=== PATIENT | female | born 1945 | race Caucasian/White ===

== ENCOUNTER → 2016-02-22 | Outpatient (CLI) | payer OTHER, MEDICARE ==
--- NOTE | 2016-02-22 10:07 | DX ---
Lumbar Spine, AP and Lateral Upright Views February 22, 2016 at 9:14 a.m. Clinical History: 70-year-old female with persistent low back pain and a prior history of fusion two years ago. ICD 10 Diagnostic Code: M54.16. Comparison Study: Lumbar spine radiographs, dated April 02, 2014. Findings: The patient has undergone posterior spinal fusion from L4-S1 with longitudinally oriented f usion rods secured by bilateral transpedicular screws. A transverse fusion bar is seen at L5. Radiopa que markers are seen at the interbody fused levels. There is no periprosthetic lucency. There is a mi ld sigmoid-shaped thoracolumbar scoliosis with a lower dextrothoracic component measuring 8 degrees a nd a levolumbar component measuring 10 degrees. There has been progressive degenerative disk space na rrowing at L2-L3 with persistent disk space narrowing at L3-L4 compared to March 2014. Old mild ve ntral concavities at T11-L1 are stable. There are ventral traction osteophytes from T11-L3. Faint mur al calcification of the abdominal aorta is noted. There is no symphysis pubis or SI joint diastasis. Impression: 1. Postoperative change following prior arthrodesis at L4-S1. 2. Progressive degenerative change predominately at L2-L3 and to a lesser degree at L3-L4 since 2014, with a mild biphasic thoracolumbar scoliosis. The patient is also scheduled for MR imaging of the lumbar spine, and this report should also be refe renced.
--- NOTE | 2016-02-22 11:40 | MR ---
Unenhanced MRI of the Lumbar Spine Clinical History: 70-year-old female with a prior L4-S1 fusion, complaining of lumbago and right hip and thigh pain. ICD 10 Diagnostic Code: M54.16. Technique: Sagittal T1, T2, and STIR "metal" protocol images were obtained from the T10-T11 disk spac e through the caudal portion of the sacrum, and supplemented by axial T1 and T2-weighted images. A no ncontrast study was requested only. Comparison Studies: Lumbar spine radiographs from earlier this morning at 9:14 a.m., and MR imaging o f the lumbar spine dated April 02, 2014. Findings: The patient has undergone posterior spinal fusion from L4-S1, and there is some magnetic grossman sceptibility artifact associated with the longitudinally-oriented rods, bilateral transpedicular scre ws, a transverse fusion bar at L5, and previously noted linear radiopaque fusion markers at the inter body levels. The posterior alignment at the operative levels is relatively anatomic and stable. There are old mild ventral concavities at the T12 and L1 levels. There is degenerative disk desiccation at all levels, and there has been progressive degenerative disk disease since the previous study in 201 5, particularly at the L2-L3 level and to a lesser degree at the L3-L4 level. Central canal stenoses are seen at multiple levels above the operative decompressive levels, and will be discussed further b ambar. Bone marrow signal is notable for some cortical endplate degenerative changes. There are some s cattered hemangiomas which suppress on the STIR sequences. The conus medullaris has a normal morpholo gy, terminating at the caudal L1 level. There is no hyperintense disk signal to suggest diskitis, and there is no prevertebral or epidural hematoma. The prevertebral soft tissues are grossly unremarkabl e. At the T10-T11 level, there is degenerative disk space narrowing and disk desiccation with Schmorl's node formation. There is a moderate central-right paracentral subligamentous disk herniation, resulti ng in severe central canal stenosis with an AP canal diameter of only 6 mm. There is a mild degree of right neural foraminal stenosis. At the T11-T12 level, there is degenerative disk desiccation with broad-based annular bulging and a c entral subligamentous disk protrusion, resulting in zeuw-pi-xqdyxshg central canal stenosis of 10 mm. There is mild facet hypertrophy and mild left neural foraminal narrowing. At the T12-L1 level, there is degenerative disk desiccation with broad-based annular bulging and a ce ntral subligamentous disk protrusion, resulting in mild central canal stenosis. The neural foramina a re relatively patent. At the L1-L2 level, there is degenerative disk desiccation with moderate bilateral facet hypertrophy with small facet joint effusions. There is eccentric right paracentral and right neural foraminal dis k herniation, resulting in moderate right paracentral and wlgi-ts-pxcvuasa right neural foraminal kahlil rowing. At the L2-L3 level, there has been progressive degenerative disk space narrowing with ventral and cir cumferential dorsal disk bulging. Moderate facet hypertrophy with ligament flavum thickening results in moderate central canal stenosis and severe right (sagittal series 3, image 8) and mild left neural foraminal stenosis. At the L3-L4 level, there is degenerative disk desiccation with broad-based circumference disk bulgin g, moderate bilateral facet hypertrophy, and ligamentum flavum thickening. There is a moderate degree of central canal stenosis and moderate bilateral neural foraminal narrowing with some bilateral late ral recess narrowing. At the L4-L5 level, the patient has had a decompressive laminectomy and spinal fusion, and there is n o central canal stenosis. The neural foramina are patent. At the L5-S1 level, there has been posterior spinal fusion and decompression with a normal AP canal d iameter. There is some mild bilateral neural foraminal stenosis. Impression: 1. Postsurgical change from L4-S1, stable from April 02, 2014. 2. Multilevel advanced degenerative disk disease, definitely progressive L2-L3 (where there is now se kenyatta right neural foraminal stenosis) and slightly progressive at L3-L4 compared to 2015 with accompa nying central canal and neural foraminal stenoses, as above-detailed. Degenerative canal narrowing ex tends to the T10-T11 level, as well.
== END ==
LOC: FIMAGING 09:03
PROVIDERS: ATTEND Neurological Surgery
DX: M54.16 Radiculopathy, lumbar region (principal); M54.5 Low back pain; M51.35 Other intervertebral disc degeneration, thoracolumbar region; M51.36 Other intervertebral disc degeneration, lumbar region; M41.9 Scoliosis, unspecified; Z98.1 Arthrodesis status

== ENCOUNTER → 2016-04-26 | Outpatient (CLI) | payer OTHER, MEDICARE | LOC: BHCLAF 10:00 | PROVIDERS: ATTEND Internal Medicine | DX: R01.1 Cardiac murmur, unspecified (principal) | CPT/HCPCS: 93306-PO ==

== ENCOUNTER → 2016-10-03 | Outpatient (CLI) | payer OTHER, MEDICARE | LOC: FIMAGING 12:07 | PROVIDERS: ATTEND Neurological Surgery | DX: G95.29 Other cord compression (principal); M48.04 Spinal stenosis, thoracic region; M51.24 Other intervertebral disc displacement, thoracic region; M51.25 Other intervertebral disc displacement, thoracolumbar region; M48.06 Spinal stenosis, lumbar region; M48.07 Spinal stenosis, lumbosacral region; M51.26 Other intervertebral disc displacement, lumbar region; M89.38 Hypertrophy of bone, other site; M99.73 Connective tissue and disc stenosis of intervertebral foramina of lumbar region ==

== ENCOUNTER → 2016-10-29 | Outpatient (CLI) | payer OTHER, MEDICARE | LOC: BHFA 11:30 | PROVIDERS: ATTEND Internal Medicine Cardiovascular Disease | DX: R09.89 Other specified symptoms and signs involving the circulatory and respiratory systems (principal) ==

== ENCOUNTER 2016-11-08 06:01 | Inpatient (IN) | payer OTHER, MEDICARE ==
[2016-11-08] MEDS ORDERED: ceFAZolin 2 GM/DEXTROSE 100 ML IV ONE (06:09)
[2016-11-08] MEDS ORDERED: LIDOCAINE 1% 2 ML INJ ID PRN (06:10)
[2016-11-08] MEDS ORDERED: LR 1,000 ML IV ONE (06:10)
[2016-11-08] MEDS ORDERED: THROMBIN (BOVINE) 5,000 UNIT VIAL TP ONE (06:57)
[2016-11-08] MEDS ORDERED: CHLORHEXIDINE GLUC HIBICLENS 118 ML BTL TP ONE (06:57)
[2016-11-08] MEDS ORDERED: BACITRACIN 50,000 UNITS/10 ML SYR IRR ONE (06:57)
[2016-11-08] MEDS ORDERED: BUPIVACAINE 0.25% 30 ML SDV ONE (06:57)
[2016-11-08] MEDS ORDERED: THROMBIN (BOVINE) 20,000 UNIT VIAL TP ONE ×2 (07:01→10:07)
--- NOTE | 2016-11-08 07:01 | PDHPUP ---
History & Physical Update H&P update statement: This history and physical update is based on an assessment of the patient which was completed after admission or registration (within 24 hours), but prior to the surgery/procedure. H&P update: H&P reviewed & patient examined, no change in patient's condition since H&P completed
[2016-11-08] MEDS ORDERED: MIDAZOLAM 2 MG/2 ML VIAL IVP ONE (07:05)
--- NOTE | 2016-11-08 07:06 | PDANEPAE ---
ANE History of Present Illness here for TLIF ANE Past Medical History - Cardiovascular History Hx Hypertension: Yes Hx Arrhythmias: No Hx Chest Pain: No Hx Coronary Artery / Peripheral Vascular Disease: No Hx CHF / Valvular Disease: No Hx Palpitations: No - Pulmonary History Hx COPD: No Hx Asthma/Reactive Airway Disease: Yes Hx Recent Upper Respiratory Infection: No Hx Oxygen in Use at Home: No Hx Sleep Apnea: No Sleep Apnea Screening Result - Last Documented: Negative Pulmonary History Comment: Asthma-inhalers. Pnuemonia-03/23, resolved. - Neurologic History Hx Cerebrovascular Accident: No Hx Seizures: No Hx Dementia: No Neurologic History Comment: Several lower back epidural inj. - Endocrine History Hx Diabetes: No Endocrine History Comment: Hypothyroid-med. - Renal History Hx Renal Disorders: No Renal History Comment: HX of hyponatremia, being worked up.Post cervical fusion Jan 2014 - Liver History Hx Hepatic Disorders: No - Neurological & Psychiatric Hx Hx Neurological and Psychiatric Disorders: Yes Neurological / Psychiatric History Comment: Depression-med - Cancer History Hx Cancer: No - Congenital Disorder History Hx Congenital Disorders: Yes Congenital History Comment: Spinal canal stenosis. - GI History Hx Gastrointestinal Disorders: Yes Gastrointestinal History Comment: OCCASIONAL REFLUX - Other Health History Other Health History: HX bilateral narrow angle glaucoma-corrected. Osteoarthritis in joints. Bruise easily & skin tears - Chronic Pain History Chronic Pain: Yes (spine) - Surgical History Prior Surgeries: 1974-tonsils. 1977-tubal ligation. 2005-D&C. 2009-bilateral thumb tendon. 2010-L knee scope. 2011-partial L knee plasty. 2013-bilateral. CERVICAL 2013 C456 FUSION, LUMBAR 2014 [id number] surg for glaucoma.NARROW ANGLE ANE Review of Systems Review of systems is: negative Review of Systems: - Exercise capacity Exercise capacity: <4 METS, >=4 METS METS (RN): 4 METS ANE Patient History - Allergies Allergies/Adverse Reactions: Sulfa (Sulfonamide Antibiotics) Allergy (Mild, Verified 04/02/14 13:47) Hives - Home Medications Home medications: home medication list seen and reviewed Home Medications: Albuterol [Proventil Inhaler HFA (*)] 2 puffs IH DAILY PRN 05/31/11 [Last Taken 10/25/16] Cyclobenzaprine [Flexeril 10 MG (*)] 10 mg PO DAILY PRN 05/31/11 [Last Taken 02/23 20:00] Levothyroxine [Synthroid 150 mcg (*)] 150 mcg PO MOTUWETHFR@05/31/11 [Last Taken 11/08/16 05:00] Methylcellulose [Citrucel] 4 cap PO DAILY 05/31/11 [Last Taken 11/01/16] Multivitamins [Multivitamin (*)] 1 tab PO DAILY 05/31/11 [Last Taken 11/01/16] Levothyroxine Sodium 75 mcg PO SA@03/24/13 [Last Taken 11/07/16] Calcium Carbonate [Oyster Shell Calcium 500 mg (*)] 500 mg PO BID 12/20/13 [ Last Taken 11/01/16] Omeprazole 20 mg PO BID PRN 12/20/13 [Last Taken 11/07/16 20:00] Simvastatin [Zocor 20 mg] 20 mg PO HS 12/20/13 [Last Taken 11/07/16 20:00] Zolpidem Tartrate [Ambien 5MG (*)] 2.5 mg PO HS PRN 12/20/13 [Last Taken 21:00] Glucosamine/Chondroitin [Glucosamine/Chondroitin (*)] 1 cap PO BID 01/11/14 [ Last Taken 11/01/16] Azelastine HCl [Astepro] 1 spray NS DAILY PRN 03/13/14 [Last Taken 11/08/16 05: 00] [place]-3 Fatty Acids [Fish Oil 1000 mg (*)] 1,000 mg PO BID 03/13/14 [Last Taken 11/01/16] Gabapentin [Neurontin 300 MG (*)] 600 mg PO BID 04/02/14 [Last Taken 11/07/16 20 :00] Acetaminophen [Tylenol 325mg (*)] 325 mg PO DAILY PRN 10/07/16 [Last Taken 11/07 18:00] Ascorbic Acid [Vitamin C 500 mg (*)] 1,000 mg PO BID 10/07/16 [Last Taken ] C/E/Zn/Cu/OM3/DHA/EPA/LUT/ZEAX [Preservision Areds 2 Softgel] 1 each PO DAILY [Last Taken 11/01/16] Calcium Carbonate [Tums 500MG (*)] 500 mg PO DAILY PRN 10/07/16 [Last Taken ] FLUoxetine [Prozac 20 MG (*)] 20 mg PO DAILY 10/07/16 [Last Taken 11/08/16 05:00 ] Fluticasone Hfa 220 Mcg [Flovent 220 MCG Hfa MDI (*)] 1 puffs IH BID PRN [Last Taken 10/11/16] Ibuprofen [Motrin (*)] 200 mg PO DAILY PRN 10/07/16 [Last Taken 11/01/16] Spironolactone [Aldactone 50 MG (RX)] 50 mg PO DAILY 10/07/16 [Last Taken 18:00] amLODIPine BESYLATE [Norvasc 5 mg (*)] 5 mg PO DAILY 10/07/16 [Last Taken 05:00] - NPO status NPO Status: no food or drink >8 hours NPO Since - Liquids (Date): 11/07/16 NPO Since - Liquids (Time): 20:00 NPO Since - Solids (Date): 11/07/16 NPO Since - Solids (Time): 20:00 - Smoking Hx Smoking Status: Former smoker - Family Anes Hx Family Hx Anesthesia Complications: NONE ANE Labs/Vital Signs - Vital Signs Blood Pressure: 152/72 Heart Rate: 64 Respiratory Rate: 16 O2 Sat (%): 94 Height: 157.48 cm Weight: 76.204 kg ANE Physical Exam - Airway Neck exam: FROM Mallampati Score: Class 2 Mouth exam: normal dental/mouth exam - Pulmonary Pulmonary: no respiratory distress - Cardiovascular Cardiovascular: regular rate and rhythym - ASA Status ASA Status: III ANE Anesthesia Plan Anesthesia Plan: general endotracheal anesthesia Lines/Monitors: arterial line
[2016-11-08] MEDS ORDERED: fentaNYL 100 MCG/2 ML INJ ONE ×5 (07:12→15:33)
[2016-11-08] MEDS ORDERED: PROPOFOL/EMULSION 500 MG/50 ML BOTTLE IV ONE ×3 (07:13→10:25)
[2016-11-08] MEDS ORDERED: KETAMINE 100 MG/10 ML SYR ONE (08:12)
[2016-11-08] MEDS ORDERED: TRANEXAMIC ACID 760 MG in NS 100 ML IV ONE (08:30)
[2016-11-08] MEDS ORDERED: LABETALOL HCL 50 MG/10 ML SYR IVP PRN (09:38)
[2016-11-08] MEDS ORDERED: PROMETHAZINE HCL 25 MG/ML INJ IVP PRN (09:38)
[2016-11-08] MEDS ORDERED: ALBUTEROL 3 ML DEYVIAL IH PRN (09:38)
[2016-11-08] MEDS ORDERED: HYDROmorphONE/DILAUDID 1 MG/ML INJ IVP PRN (09:38)
[2016-11-08] MEDS ORDERED: fentaNYL 100 MCG/2 ML INJ IVP PRN (09:38)
[2016-11-08] MEDS ORDERED: NALOXONE HCL 0.4 MG/ML INJ IVP PRN ×2 (09:38→11:56)
[2016-11-08] MEDS ORDERED: ONDANSETRON 4 MG/2 ML VIAL IVP PRN ×2 (09:38→11:46)
[2016-11-08] MEDS ORDERED: DEXAMETHASONE 4 MG/ML VIAL IVP PRN (09:38)
[2016-11-08] MEDS ORDERED: epHEDrine SULFATE 10 MG/ML SYR ONE ×4 (10:14→13:05)
[2016-11-08] MEDS ORDERED: PHENYLEPHRINE 10 MG/ML SDV ONE (11:19)
[2016-11-08 11:26] LABS: BASE EXCESS -8.6 mEq/L (-2.5-2.5); BICARBONATE 18 mEq/L (22-26); MEASURED OXYGEN SATURATION 99 % (92-95); PCO2 43 mmHg (34-38); PO2 253 mmHg (65-75); TCO2 19 mEq/L (23-27)
[2016-11-08 11:32] LABS: % IMMATURE GRANULYOCYTES 1.5 % (0.0-1.1); ABSOLUTE IMMATURE GRANULOCYTES 0.15 10^3/uL (0.00-0.10); ADD DIFF? NO; ADD MORPH? NO; ADD SCAN? NO; ATYPICAL LYMPHOCYTE FLAG 0 (0-99); FRAGMENT RBC FLAG 0 (0-99); HEMATOCRIT 30.9 % (38.0-47.0); HEMOGLOBIN 10.4 g/dL (12.6-16.3); LEFT SHIFT FLG 20 (0-99); LIPEMIA HEMOLYSIS FLAG 80 (0-99); MEAN CELL HEMOGLOBIN 32.3 pg (27.9-34.1); MEAN CELL HEMOGLOBIN CONCENTR. 33.7 g/dL (32.4-36.7); MEAN PLATELET VOLUME 10.6 fL (8.7-11.7); PLATELET CLUMPS FLAG 0 (0-99); PLATELET COUNT 236 10^3/uL (150-400); RED BLOOD CELL COUNT 3.22 10^6/uL (4.18-5.33); RED CELL DISTRIBUTION WIDTH 12.6 % (11.5-15.2)
[2016-11-08] MEDS ORDERED: VASOPRESSIN 20 UNIT/ML VIAL ONE (11:34)
[2016-11-08] MEDS ORDERED: LACTULOSE 20 GM/30 ML UDCUP PO PRN (11:46)
[2016-11-08] MEDS ORDERED: diphenhydrAMINE 25 MG CAP PO PRN (11:46)
[2016-11-08] MEDS ORDERED: ONDANSETRON DISINTEGRATING 4 MG TAB PO PRN (11:46)
[2016-11-08] MEDS ORDERED: ALBUTEROL 60 PUFFS/8 GM MDI IH PRN (11:51)
[2016-11-08] MEDS ORDERED: FLUTICASONE HFA 220 MCG MDI IH PRN (11:51)
[2016-11-08] MEDS ORDERED: CYCLOBENZAPRINE 10 MG TAB PO PRN (11:51)
[2016-11-08] MEDS ORDERED: Azelastine Hcl [Astepro] 1 SPRAY NS PRN (11:51)
[2016-11-08] MEDS ORDERED: NS 500 ML IV PRN (11:55)
[2016-11-08] MEDS ORDERED: DEXMEDETOMIDINE HCL 400 MCG in NS 100 ML IV SCH (12:00)
[2016-11-08] MEDS ORDERED: ALBUTEROL 200 PUFFS/18 GM MDI IH PRN (12:30)
[2016-11-08] MEDS ORDERED: MIDAZOLAM 2 MG/2 ML VIAL ONE (13:28)
[2016-11-08] MEDS ORDERED: NOREPINEPHRINE BITARTRATE 16 MG in D5W 250 ML IV SCH (13:30)
[2016-11-08] MEDS ORDERED: PROPOFOL 200 MG/20 ML VIAL ONE ×2 (13:46→14:30)
[2016-11-08] MEDS ORDERED: NA BICARBONATE 50 MEQ/50 ML VIAL ONE (14:01)
[2016-11-08] MEDS ORDERED: INSULIN REGULAR HUMAN 100 UNIT/ML ONE (14:41)
--- NOTE | 2016-11-08 15:14 | POSTOPPROG ---
Post Op Note Date of Operation: 11/08/16 Surgeon: Rocio Yin Car Hostler: Rocio Yin SUTURE GAUGER Anesthesia: GET(General Endotracheal) Procedure: T10-11 TLIF, L2-S1 Fusion Inf/Abcess present in the surg proc area at time of surgery?: No Depth: Deep Incisional (Fascial) EBL: 500-1000 Total fluids administered: see anesthesia Complications: See Dr Kaba's operative report Drains: Prem Casanova Date of Surgery: 11/08/16 Post Op Day: 0 Assessment/Plan: 71 yr old female s/p T10-11 TLIF, L1-S1 fusion Plan: -Admit to ICU -Keep MAP greater than 85, ok to use NIBP -Precedex ordered if needed to assist with pain management -PT/OT to eval when able -Ok to elevated HOB -Patient has brace already, will need to wear it when out of bed -DVT prophylaxis to start on POD#3 -ALCIDES in place Subjective: Patient waking up in ICU, following commands Objective: Waking up in ICU, following commands PERRLA EOMI 5/5 BUE, BLE Sensation intact to light touch BLE ALCIDES in place dressing CDI Appropriate Neuro Check Frequency Ordered: Yes
[2016-11-08] MEDS ORDERED: fentaNYL/NACL 100 ML IV SCH (15:53)
[2016-11-08] MEDS ORDERED: D50W 25 GM/50 ML SYR IVP PRN ×2 (15:53→16:24)
[2016-11-08] MEDS ORDERED: DOPamine/DEXTROSE/250 ML BAG IV ONE (16:20)
--- NOTE | 2016-11-08 16:22 | POSTANESTH ---
Post Anesthetic Evaluation Cardiovascular Status: Tx Hyper/Hypo-tension (levophed for hypotension and map goals) Respiratory Status: Normal, Stable Level of Consciousness/Mental Status: Mildly Sleepy, Arousable (awakes to voice , moves all extremities) Pain Control: Adequate, Prn Tx Ordered Nausea/Vomiting Control: Adequate, Prn Tx Ordered Complications Possibly Related to Anesthesia: None Noted
[2016-11-08] MEDS ORDERED: D5W 1,000 ML IV SCH (16:24)
[2016-11-08] MEDS ORDERED: INSULIN REGULAR HUMAN 100 UNIT in NS 100 ML IV SCH (16:24)
[2016-11-08 16:31] LABS: BASE EXCESS -11.3 mEq/L (-2.5-2.5); BICARBONATE 15 mEq/L (22-26); MEASURED OXYGEN SATURATION 99 % (92-95); PCO2 35 mmHg (34-38); PO2 286 mmHg (65-75); TCO2 16 mEq/L (23-27)
[2016-11-08] MEDS ORDERED: ALBUMIN 5% 500 ML BOTTLE IV ONE ×2 (16:44→17:12)
[2016-11-08] MEDS ORDERED: EPINEPHrine 1 MG/10 ML SYR IVP ONE (16:51)
[2016-11-08 17:21] LABS: BASE EXCESS -6.8 mEq/L (-2.5-2.5); BICARBONATE 19 mEq/L (22-26); MEASURED OXYGEN SATURATION 95 % (92-95); PCO2 40 mmHg (34-38); PO2 80 mmHg (65-75); TCO2 20 mEq/L (23-27)
[2016-11-08 17:26] LABS: HEMATOCRIT 23.9 % (38.0-47.0); HEMOGLOBIN 8.2 g/dL (12.6-16.3)
[2016-11-08 18:25] LABS: % IMMATURE GRANULYOCYTES 0.9 % (0.0-1.1); ABSOLUTE IMMATURE GRANULOCYTES 0.23 10^3/uL (0.00-0.10); ADD DIFF? NO; ADD MORPH? NO; ADD SCAN? NO; ATYPICAL LYMPHOCYTE FLAG 0 (0-99); FRAGMENT RBC FLAG 0 (0-99); HEMATOCRIT 31.1 % (38.0-47.0); HEMOGLOBIN 10.8 g/dL (12.6-16.3); LEFT SHIFT FLG 70 (0-99); LIPEMIA HEMOLYSIS FLAG 90 (0-99); MEAN CELL HEMOGLOBIN CONCENTR. 34.7 g/dL (32.4-36.7); MEAN CELL VOLUME 92.3 fL (81.5-99.8); MEAN PLATELET VOLUME 10.8 fL (8.7-11.7); PLATELET CLUMPS FLAG 0 (0-99); PLATELET COUNT 136 10^3/uL (150-400); RED BLOOD CELL COUNT 3.37 10^6/uL (4.18-5.33); RED CELL DISTRIBUTION WIDTH 13.8 % (11.5-15.2)
[2016-11-08] MEDS ORDERED: CALCIUM CHLORIDE 1 GM/10 ML INJ IVP ONE (18:30)
[2016-11-08] MEDS ORDERED: SODIUM BICARBONATE 50 MEQ/50 ML SYR IVP ONE ×3 (18:30)
[2016-11-08] MEDS ORDERED: ALBUMIN 5% 500 ML IV ONE ×2 (18:30)
[2016-11-08 18:38] LABS: ANION GAP 22 mEq/L (8-16); CALCIUM 9.3 mg/dL (8.5-10.4); CARBON DIOXIDE 16 mEq/l (22-31); CHLORIDE 101 mEq/L (97-110); CREATININE 0.8 mg/dL (0.6-1.0); GLOMERULAR FILTRATION RATE > 60; GLUCOSE 218 mg/dL (70-100); POTASSIUM 3.8 mEq/L (3.5-5.2); SODIUM 139 mEq/L (134-144)
[2016-11-08] MEDS: ACETAMINOPHEN 500 MG TAB PO SCH (18:39)
[2016-11-08] MEDS: ceFAZolin 2 GM/DEXTROSE 100 ML IV SCH (18:41)
[2016-11-08] MEDS: INSULIN REGULAR HUMAN 100 UNIT/ML SC SCH ×2 (18:46→23:54)
[2016-11-08 18:50] LABS: TROPONIN I 0.049 ng/mL (0.000-0.034)
--- NOTE | 2016-11-08 19:03 | GOP ---
[f rep st] OPERATIVE REPORT DATE OF OPERATION: 11/08/2016 SURGEON: Elena Kaba MD NEUROSURGEON: Elena Kaba MD. DIRECTOR MARKET INTELLIGENCE: Rocio Yin NP PREOPERATIVE DIAGNOSIS: Severe thoracolumbar spondylosis with severe stenosis at T10-11; moderate st enosis of T11-12, T12-L1; severe stenosis at L3-4, L2-3; moderate stenosis L1-2; severe right foramin al stenosis L2-3; right lumbosacral radiculopathy; cord compression at the T10-11 level. POSTOPERATIVE DIAGNOSIS: Severe thoracolumbar spondylosis with severe stenosis at T10-11; moderate s tenosis of T11-12, T12-L1; severe stenosis at L3-4, L2-3; moderate stenosis L1-2; severe right forami nal stenosis L2-3; right lumbosacral radiculopathy; cord compression at the T10-11 level. PROCEDURE PERFORMED: 1. We did a T10-11 laminectomy and bilateral transpedicular decompression with complete removal of t he T10-11 disk and a posterolateral and intervertebral arthrodesis at T10-11 with posterior nonsegmen becki instrumentation across a single interspace at that level, placement of biomechanical intervertebr al device T10-11, spinal stereotaxy, microscope. 2. Same incision was a posterolateral arthrodesis only at L1-2, L2-3, L3-4; posterior segmental inst rumentation L1, L2, L3, L4, L5, S1; same-incision bone graft harvest. FINDINGS: ESTIMATED BLOOD LOSS: 600 cc. DESCRIPTION OF PROCEDURE: Patient was taken to the operating room, placed in supine position. Gener al anesthesia was begun. An arterial line was placed. Our goal was to keep her mean arterial pressu re up throughout the surgery and our goal was to keep it at 85 or 90, and Dr. Mart Bautista placed the arterial line in attempt to satisfy these needs. He and I both recognized the seriousness of the pr oblem in her thoracic spine. She was flipped prone onto the Prem table. Care was taken to pad al l points of contact. Her back was sterilely prepped and draped in the usual fashion. We did have so me difficulty positioning her arms prior to surgery in an effort to maintain median and ulnar motor e voked responses, but we were able to get these done prior to starting. We then shot localizing x-ray s and used the plasma blade to open the spine all the way from the spinous process of T9 down to the spinous process of S1. We performed subperiosteal dissection down the T9 lamina. The T10, T11, T12, L1, L2, L3 lamina were all exposed. The prior hardware at L4-5, L5-S1 was exposed. We removed the p rior hardware. We explored the underlying spinal fusion L4-5, L5-S1 and indeed she was fused. There was solid bony union most evident on the right with a solid single piece of bone spanning from L4 to S1. All of her hardware was extremely well-seated. There was no loosening of the hardware and this , too, suggested strong bony union. We re-prepped the area where the screws were removed at L4, L5 and S1. We then denuded the facet peg nts that were going to be fused at T10-11 and then also at L1-2, L2-3, L3-4. We decorticated the tra nsverse processes at L1-2, L2-3, L3-4. We preserved the T11-12 and T12-L1 facet joints completely. These were not disturbed. We tested Stealth reference frame and using frameless Stealth stereotaxy, we placed pedicle screws bilaterally at L1, L2, L3, L4, L5, and S1. They all stimulated at acceptabl e levels. An O-arm spin was made. All the screws were in excellent position. We then performed ano ther O-arm spin for the thoracic surgery and place pedicle screws at T10 and T11. These were 5.5 mm screws, and we performed another O-arm spin confirming their position. The original O-arm spin of th e lower part of the spine did demonstrate solid bony union from L4 to the sacrum. All the screws wer e in excellent position. We took a long bridget, cut it and bent it, and placed it down from L1 to S1. Final tightened the cap sc rews at L4, L5, and S1, and then distracted at L3-4, L2-3, and L1-2. We got about an inch-worth of d istraction across these 3 levels and shot an x-ray, and I was very happy with both the alignment of h er spine as well as the significant distraction of the facet joints posteriorly. She also continued to have a nice lumbar lordosis and we were happy with all of this. We then prepped the posterolateral bone from L1 to the L4-5, S1 area. We even decorticated L4-5 and S1 to allow the new construct to grow into this old construct. A great posterolateral fusion was per formed. We then turned our attention to T10-11. We had done no decompressions at L1-2, L2-3, L3-4, and thoug ht we would do this at the end of the surgery if indeed everything went well in the thoracic spine. We went to the thoracic spine and here we did not put any rods down, but we did cut the rods to size at T10-11. We then removed all the soft tissue of the bone from the T10 spinous process and the raudel ral T11 spinous process. We then harvested the T10 spinous process for autologous grafting purposes and then simply drilled bilateral T10 laminae and thinned out the lamina of T10 using the high-speed drill. We harvested this bone for autologous grafting purposes. We were able to see epidural fat an d ligamentum flavum and we began to remove using loop magnification just the very inferior part of th e T10 lamina. The underlying dura was identified and we began to remove. We made a small window in the bone, no more than about a centimeter across and a centimeter [id number], and at this poin t we lost function on the right motor evoked potentials. SSEPs were stable. I was concerned by this and my partner, Dr. Paul, came into the room and we introduced the operating microscope to begin e xtending the decompression. We removed the entire T10 lamina itself, increased our blood pressure. The MAP was originally at 80 and we had some return of just a slight twitch in the right foot when it was increased to 100. We performed complete bilateral facetectomies at T10-11, identified the exiti ng T10 nerve root, which we did not need to sacrifice. We then performed a rostral T11 pediculectomy to allow access to the disk space at T10-11. The neuro monitor then informed me that the left motor evoked potentials were now decreasing and the somatosensory-evoked potentials were now shifting and increasing in latency. We continued to work. We had an excellent wide decompression. We had not ma nipulated the dura nor had we truly entered the disk space, but we had an excellent corridor into the T10-11 disk from both sides, the left and the right. We then incised the T10-11 disk and removed so me soft pieces of disk within the disk itself, both from the left and the right. We took a high-spee d drill and performed a rostral corpectomy of T11 and a caudal corpectomy of T10. It was not truly a corpectomy. We were just simply removing the bony endplates and drilling using a bilateral approach through the disk. We were simply creating a large cavity within the disk space whereby we could fra cture the epidural component of the disk down into the cavity. We then took a dental and went rostra l to the disk space and caudal to the disk space, both from the left and right to identify the intras chapin mass that was present. We did not move the cord nor did we pull on the dura. We simply deline ated the normal ventral surface behind the T10 vertebral body and behind the T11 vertebral body. Onc e we had delineated this, we worked our way over down into the disk space itself and as we did so, we had removed all of the bony connections previously with the drill in the disk space itself and would begin to push the PLL down into the cavity that was created. As we worked our way toward the disk, we did fracture this disk fragment and the culprit fragment down in the disk space and removed this c ompletely. We then checked motors and we had return of the left leg motors to not normal, but they w ere now very clearly monitorable and they improved and now we had return of the right foot. We were not getting signals in the right quad and tibialis anterior. There was a struggle to keep the MAPs e levated. They had a tendency to fall down into [address] Bautista was able to increase the MAPs once again into the high 90s. This combined with removal of the disk appeared to restore the signal stren [facility]. We were now at this point in the case where things did appear to be improving. We decorticated the bone on either side at T10-11 to create arthrodesis and chose a 7 mm PEEK interve rtebral device x 25 mm length. A [place] PEEK cage was chosen. It was packed with BMP. We placed BMP in the ventral disk space. We inserted the PEEK cage, shot an x-ray, removed the cage, and then made a little more space slightly more ventral and then moved the cage into a slightly more ventral l ocation. It was inserted and a final x-ray was taken and we were happy with this. We had preserved the exiting nerve roots. Our access to the disks had been afforded by removal of the very rostral po rtion of the T11 pedicle. The pedicle screws we had purposely placed in the caudal pedicle and this approach seemed to have worked. Given the difficulty with the motor evoked potentials, we did not el ect to go ahead and continue with the lumbar portion of the case. She had achieved significant distr action and opening of the neural foramen indirectly and we did finish our posterolateral arthrodesis at L1-2, L2-3, and L3-4, but we did not do our decompression. We placed BMP posterolaterally bilate rally from L1 to L4 along with bony autograft and we did likewise between T10-11. We placed rods marisel n over the T10-11, screws, placed cap screws. Tightened them according to company specification. We checked the other cap screws. Placed a subfascial drain and closed the incision in multiple layers using Vicryl sutures. Steri-Strips were applied to skin. The patient was reversed from anesthesia, extubated, and transferred to ICU in stable condition. There were no additional complications. INSTRUMENTATION USED: Extreme [employer] Solara 5.5 system. We used a 7 x 25 mm crescent cage at T10-11. We used 5.5 mm screws, but a 6.5 mm system, at T10-11 with titanium bridget. COMPLICATIONS: Include diminished motor evoked potentials, particularly in the right leg during and after surgery. 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 She also changes at T11-12, T12-L1. She was having terrible righ t leg pain and it was our feeling this could be related to the stenosis and adjacent segment disease at L3-4, but really any of the levels of the lumbar spine could be contributing, but I was impressed particularly at the right L2-3 neural foramen and we suggested fusion at these adjacent segments. At one time we had entertained fusion throughout the entire lumbar spine but the case was reviewed with my partners and we elected not to do this. Her lumbar MRI demonstrated what appeared to be cord com pression at T10-11 right outside the field of view, and so we ordered a thoracic MRI and indeed the t horacic MRI did demonstrate cord compression of the lower thoracic cord due to a large ventral disk h erniation that was present both left and right. There did appear to be a safe corridor on the left t o access the disk space and because of this, I felt that she needed to have a thoracic operation as well. I thought both could be done simultaneously. I discussed with her the risks, including the ri sk of paraplegia, although I felt the risk was quite low as we had had good experience with this appr [facility] in the past. She understood the seriousness of the problem in the thoracic spine, but again I f elt there was a very low probability that she would experience paraplegia, but it was discussed as a possible risk. Nonsurgical intervention for this problem was not an option. It was also possible th at this problem was creating much of the difficulty that she was having, and without question this wa s the most serious problem that needed to be treated. In addition, she did have really terrible sheryl cent segment stenosis at L3-4, but there was also significant findings at L1-2 and L2-3, and I though t these should be treated. Some surgeons would have gone ahead and tied T10 all the way into the pre vious sacral fusion, and I felt the problems at T10-11 were somewhat distinct from the issues in the lower lumbar spine and I wanted to treat these really as separate issues. This would maximize the ch ance of bony union at T10-11, simplify the surgery and simplify the biomechanics of her spine, but I did discuss the downside of my approach with her and that downside being that she would almost certai nly require additional surgery at T11-12 and T12-L1 possibly in the near future. It was still in my judgment the best approach for her to simply treat these as separate issues. She understood this and she did want to proceed. The risk of screw and hardware malposition, malfunction, pseudoarthrosis, adjacent segment disease, additional spine surgery in the future was discussed. She knew there was r isk of nerve injury, and continued symptoms. /[id number]/MODL
[2016-11-08] MEDS ORDERED: IOPAMIDOL (ISOVUE-300) 100 ML BTL ONE (19:33)
[2016-11-08] MEDS: HYDROmorphONE/DILAUDID 6 MG/30 ML PCA IV PRN (20:00)
[2016-11-08 23:08] LABS: BASE EXCESS -1.1 mEq/L (-2.5-2.5); BICARBONATE 24 mEq/L (22-26); PCO2 45 mmHg (34-38); PO2 43 mmHg (65-75); TCO2 25 mEq/L (23-27)
[2016-11-08 23:10] LABS: MEASURED OXYGEN SATURATION 79 % (92-95)
[2016-11-08 23:45] LABS: HEMATOCRIT 29.8 % (38.0-47.0); HEMOGLOBIN 10.7 g/dL (12.6-16.3)
[2016-11-08] MEDS: GABAPENTIN 300 MG CAP PO SCH (23:54)
[2016-11-08] MEDS: FAMOTIDINE 20 MG TAB PO SCH (23:54)
[2016-11-08] MEDS: ATORVASTATIN CALCIUM 10 MG TAB PO SCH (23:54)
[2016-11-09] MEDS: morphINE SR 15 MG TAB PO SCH ×3 (00:17→21:10)
[2016-11-09] MEDS: SENNOSIDES/DOCUSATE SODIUM TAB PO SCH ×3 (00:17→21:11)
[2016-11-09] MEDS: ACETAMINOPHEN 500 MG TAB PO SCH ×4 (00:17→21:11)
[2016-11-09] MEDS: NS 1,000 ML IV SCH ×2 (01:15→10:07)
[2016-11-09] MEDS: ceFAZolin 2 GM/DEXTROSE 100 ML IV SCH (01:23)
[2016-11-09] MEDS: GABAPENTIN 300 MG CAP PO SCH ×2 (04:03→21:10)
[2016-11-09 04:24] LABS: % IMMATURE GRANULYOCYTES 0.7 % (0.0-1.1); ABSOLUTE IMMATURE GRANULOCYTES 0.11 10^3/uL (0.00-0.10); ADD DIFF? NO; ADD MORPH? NO; ADD SCAN? NO; ATYPICAL LYMPHOCYTE FLAG 0 (0-99); FRAGMENT RBC FLAG 0 (0-99); HEMATOCRIT 27.6 % (38.0-47.0); HEMOGLOBIN 9.7 g/dL (12.6-16.3); LEFT SHIFT FLG 30 (0-99); LIPEMIA HEMOLYSIS FLAG 90 (0-99); MEAN CELL HEMOGLOBIN 31.8 pg (27.9-34.1); MEAN CELL HEMOGLOBIN CONCENTR. 35.1 g/dL (32.4-36.7); MEAN CELL VOLUME 90.5 fL (81.5-99.8); MEAN PLATELET VOLUME 10.8 fL (8.7-11.7); PLATELET CLUMPS FLAG 10 (0-99); PLATELET COUNT 101 10^3/uL (150-400); RED BLOOD CELL COUNT 3.05 10^6/uL (4.18-5.33); RED CELL DISTRIBUTION WIDTH 14.4 % (11.5-15.2)
[2016-11-09 04:46] LABS: ANION GAP 11 mEq/L (8-16); CALCIUM 8.2 mg/dL (8.5-10.4); CARBON DIOXIDE 25 mEq/l (22-31); CHLORIDE 102 mEq/L (97-110); CREATININE 0.7 mg/dL (0.6-1.0); GLOMERULAR FILTRATION RATE > 60; GLUCOSE 124 mg/dL (70-100); POTASSIUM 4.3 mEq/L (3.5-5.2); SODIUM 138 mEq/L (134-144)
[2016-11-09] MEDS: INSULIN REGULAR HUMAN 100 UNIT/ML SC SCH ×4 (06:20→21:13)
--- NOTE | 2016-11-09 08:30 | PDINTPN ---
Hourly Caregiver Progress Note Assessment/Plan: Assessment/Plan: * Status post extensive back surgery with hardware removal * Shock-resolved * Anemia-resolved * Pulmonary embolus-small right lung. Patient went on a long car ride prior to admission. This is likely the etiology. -will discuss anticoagulation with Neurosurgery. Consider IVC filter * Pain-well controlled * Asthma-stable * Abdominal pain-resolved. CT scan of the abdomen pelvis suggest possible localized pancreatitis. Will check amylase and lipase. * Respiratory-stable on minimal supplemental oxygen. Case discussed with nursing and neurosurgery. 11/09/16 08:31 Subjective: Sitting up in chair. Comfortable. Pain well controlled. She denies any breathlessness. Objective: Vital Signs Temp Pulse Resp BP Pulse Ox 37.1 C 88 14 103/46 L 97 11/09/16 04:00 11/09/16 08:00 11/09/16 08:00 11/09/16 08:00 11/09/16 08:00 Laboratory Results 11/09/16 04:15 11/09/16 04:15 11/08/16 11/09/16 11/10/16 05:59 05:59 05:59 Intake Total 4565 Output Total 3030 Balance 1535 Physical Exam - Physical Exam General Appearance: WD/WN, alert, no apparent distress EENT: PERRL/EOMI Neck: non-tender, full range of motion, supple, normal inspection Respiratory: chest non-tender, lungs clear, normal breath sounds Cardiac/Chest: normal peripheral pulses, regular rate, rhythm Peripheral Pulses: 2+: carotid (R), carotid (L), femoral (R), femoral (L), dorsalis-pedis (R), dorsalis-pedis (L) Abdomen: normal bowel sounds, non-tender, soft Pelvic Exam: deferred Rectal: deferred Skin: normal color, warm/dry Neuro/Psych: no motor/sensory deficits, alert, normal mood/affect, oriented x 3 ICD10 Worksheet Patient Problems: Problems Problem Status Onset Arthrodesis status Acute Asthma exacerbation Acute Cervical radiculitis Acute Low back pain Acute Lumbosacral stenosis Acute Neck pain Acute
[2016-11-09] MEDS: LEVOTHYROXINE 150 MCG TAB PO SCH (08:37)
[2016-11-09] MEDS ORDERED: PANTOPRAZOLE SODIUM 40 MG TAB PO PRN (09:00)
[2016-11-09] MEDS ORDERED: SPIRONOLACTONE 25 MG TAB PO SCH (09:00)
[2016-11-09] MEDS ORDERED: amLODIPine BESYLATE 5 MG TAB PO SCH (09:00)
--- NOTE | 2016-11-09 09:10 | NEUSURGPN ---
Date of Surgery: 11/08/16 Post Op Day: 1 Assessment/Plan: 71 yr old female s/p T10-11 TLIF, L1-S1 fusion POD#1 Plan: -Ok to discontinue MAP requirement -Patient doing well with pain management, will try to encourage PO >IV medications -Patient has history of terrible constipation with narcotics, bowel protocol ordered -Right hand/forearm tingle, possibly due to arterial line infiltration vs surgical positioning, will continue to monitor -PT/OT to begin to mobilize -Post op xrays pending -Patient has brace already, will need to wear it when out of bed -Patient has small PE, ok to start low dose lovenox today per medicine, may start full anticoagulation on Tuesday -Keep in ICU today to follow exam Patient was seen by Dr Kaba as well Subjective: Patient sitting in chair feeling good Objective: AxO x3 PERRLA EOMI 5/5 BUE, BLE Sensation intact to light touch BLE Right hand/forearm tingling ALCIDES in place dressing CDI Neuro Check Frequency: per routine Urinary Catheter in Place: No Catheter Insertion Date: 11/08/16 - Physician Discussed Patient with : Sesar Patient Seen by : Sesar Neurosurgery Physical Exam - Vitals, I&O, Labs I and O 11/08/16 11/09/16 11/10/16 05:59 05:59 05:59 Intake Total 4565 Output Total 3030 Balance 1535 Weight 76.204 kg Intake: Oral (ml) 120 IV Intake (ml) 1531 IV Infused (ml) 1764 Albumin 5% 500 ml @ As 1000 Directed IV ONCE ONE Rx#: [id number] HYDROmorphone HCL See 21 Protocol IV PRN PRN Rx#: [id number] Insulin Regular Human 100 25 unit In Ns 100 ml @ As Directed IV AD MAURI Rx#: [id number] Ns 1,000 ml @ 100 mls/hr 718 IV CONT MAURI Rx#: [id number] Packed Red Blood Cells ( 1150 ml) Output: Urine (ml) 2700 Catheter 2700 ALCIDES Drain Output (ml) 330 #1 Posterior Back Prem 330 Casanova Vital Signs Temp Pulse Resp BP Pulse Ox 37.1 C 88 14 103/46 L 97 11/09/16 04:00 11/09/16 08:00 11/09/16 08:00 11/09/16 08:00 11/09/16 08:00 Laboratory Results 11/09/16 04:15 11/09/16 04:15 ICD10 Worksheet Patient Problems: Problems Problem Status Onset Arthrodesis status Acute Asthma exacerbation Acute Cervical radiculitis Acute Low back pain Acute Lumbosacral stenosis Acute Neck pain Acute
--- NOTE | 2016-11-09 10:02 | ASMTCMCOM ---
CM Note CM Note Notes: 71 year old female admitted for lumbrosacral stenosis. She has a hx of L4/5 & L5/S1 TLIF in 03/24, HTN and HLD. This is POD#1 after T10-11 TLIF and L1/S1 Fusion. CM to follow for discharge needs. Date Signed: 11/09/2016 10:01 AM Electronically Signed By:Isi Navarrete LCSW
[2016-11-09] MEDS: METHOCARBAMOL 750 MG TAB PO PRN ×2 (10:40→18:23)
[2016-11-09] MEDS: FAMOTIDINE 20 MG TAB PO SCH ×2 (10:40→21:10)
[2016-11-09] MEDS: FLUoxetine 20 MG CAP PO SCH (10:40)
--- NOTE | 2016-11-09 10:52 | GCON ---
[f rep st] CONSULTATION CLASSIFICATION OFFICER CONSULTATION Patient examined postoperatively after receiving extensive back fusion. The patient is a 71-year-old white female with extensive past medical history including asthma, hypothyroidism, hyperlipidemia, ch ronic back pain, gastroesophageal reflux disease, and depression. Again, she underwent extensive back surgery L4 through S1 with TLIF levels T10 through T11, and a posterior spinal fusion T10 through T1 1, L1 through S1. This was complicated intraoperatively by some evidence of hypotension and loss of n eurologic signal. She was brought to the intensive care unit. Currently, she is extubated from mechan ical ventilation and on supplemental oxygen. Her neuro exam has improved since returning from the ope rating room. Blood pressure is adequate. Patient is still somewhat drowsy from sedation. All history is gleaned from the medical record. PAST MEDICAL HISTORY: Again, significant for depression, chronic back pain, hypothyroidism, asthma, hyperlipidemia, gastroesophageal reflux disease. PAST SURGICAL HISTORY: She has had knee surgery and extensive back surgeries in the past. ALLERGIES: Sulfa. SOCIAL HISTORY: Previous smoker, but none for many years. No significant alcohol use. 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 She is . Her daughter is a nurse here at the hospital. PHYSICAL EXAMINATION: VITAL SIGNS: Blood pressure is 134/74, pulse is 110, respirations 16, she is a febrile, oxygen saturation is 94% on supplemental oxygen. GENERAL: She is a mildly overweight, elderl y white female, who is resting comfortably. HEENT: Eyes are PERRLA, EOMI. Throat shows no erythema or tonsillar hypertrophy. NECK: Supple. There is no cervical adenopathy. HEART: Regular rate and rhythm without murmurs, rubs, or gallops. LUNGS: Showed diminished breath sounds, but no wheeze. ABDOMEN: S oft, nontender. Bowel sounds are present. EXTREMITIES: Show no clubbing, cyanosis, or edema. LABORATORY DATA: White count 10, hemoglobin 10, hematocrit 30, platelet count 236. Arterial blood ga s pH 7.24, pCO2 43, pO2 of 253. Bicarb 19. Oxygen saturation 99%. IMPRESSION: 1. Status post extensive back surgery with hardware removal, transforaminal lumbar interbody fusion levels T10 through T11, posterior spinal fusion, T10 through T11, L1 through S1. 2. Hypotension. 3. History of asthma. 4. Pain adequately controlled. 5. Asthma. 6. Respiratory stable off mechanical ventilation. 7. Hypothyroidism. 8. Gastroesophageal reflux disease. RECOMMENDATIONS: 1. Agree with pressors to keep her mean arterial pressure at 85. 2. Aggressive blood sugar control. 3. DVT and PE prophylaxis holding anticoagulation for now. 4. Adequate pain control-in this regard will add a fentanyl drip. 5. Close cardiovascular monitoring. 6. Follow neurologic status closely. /[id number]/MODL
[2016-11-09] MEDS: POLYETHYLENE GLYCOL 3350 17 GM PKT PO PRN (10:57)
[2016-11-09] MEDS: HYDROmorphONE/DILAUDID 6 MG/30 ML PCA IV PRN (11:29)
[2016-11-09 12:00] LABS: AMYLASE 95 IU/L (30-110)
[2016-11-09] MEDS: oxyCODONE IR 5 MG TAB PO PRN (15:29)
[2016-11-09] MEDS: ENOXAPARIN 40 MG/0.4 ML SYR SC SCH (18:24)
[2016-11-09] MEDS: ATORVASTATIN CALCIUM 10 MG TAB PO SCH (21:10)
[2016-11-09] MEDS: ZOLPIDEM TARTRATE 5 MG TAB PO SCH (21:11)
[2016-11-09] MEDS: CYCLOBENZAPRINE 10 MG TAB PO SCH (21:12)
[2016-11-10] MEDS: ACETAMINOPHEN 500 MG TAB PO SCH ×3 (05:29→21:48)
[2016-11-10] MEDS: LEVOTHYROXINE 150 MCG TAB PO SCH (05:30)
[2016-11-10] MEDS: METHOCARBAMOL 750 MG TAB PO PRN ×2 (05:30→11:22)
--- NOTE | 2016-11-10 07:28 | NEUSURGPN ---
Date of Surgery: 11/08/16 Post Op Day: 2 Assessment/Plan: Assessment: 71 yr old female s/p T10-11 TLIF, L1-S1 fusion POD#2 Plan: -Ok to discontinue MAP requirement as of yesterday -Patient doing well with pain management, will try to encourage PO ->IV medications -Patient has history of terrible constipation with narcotics, bowel protocol ordered-pt had CT of abd after surgery that was ok-will continue to monitor -Right hand/forearm tingle, possibly due to arterial line infiltration vs surgical positioning. RUE US ordered -PT/OT to begin to mobilize -Post op xrays reviewed -ALCIDES output reviewed and will confirm the output with the RN -Patient has brace already, will need to wear it when out of bed -Patient has small PE, ok to start low dose lovenox today per medicine, may start full anticoagulation on Tuesday -Keep in ICU today to follow exam-may be able to transfer out of ICU today pending IM approval -Patient was seen by Dr Kaba as well Subjective: Awake and alert. NAD. Eating/drinking and voiding. No f/c/n/v/d. Passing gas /no BM as of yet Objective: AxO x3 PERRLA EOMI 5/5 BUE/BLE = Sensation intact to light touch BLE Right hand/forearm tingling ALCIDES in place dressing CDI Neuro Check Frequency: per routine Urinary Catheter in Place: No Catheter Insertion Date: 11/08/16 - Physician Discussed Patient with : Sesar Patient Seen by : Sesar Neurosurgery Physical Exam - Vitals, I&O, Labs I and O 11/09/16 11/10/16 11/11/16 05:59 05:59 05:59 Intake Total 4565 2400 Output Total 3030 1390 Balance 1535 1010 Weight 76.204 kg Intake: Oral (ml) 120 1300 IV Intake (ml) 1531 IV Infused (ml) 1764 1100 Albumin 5% 500 ml @ As 1000 Directed IV ONCE ONE Rx#: [id number] HYDROmorphone HCL See 21 Protocol IV PRN PRN Rx#: [id number] Insulin Regular Human 100 25 unit In Ns 100 ml @ As Directed IV AD MAURI Rx#: [id number] Ns 1,000 ml @ 100 mls/hr 718 1100 IV CONT MAURI Rx#: [id number] Packed Red Blood Cells ( 1150 ml) Output: Urine (ml) 2700 525 Catheter 2700 525 ALCIDES Drain Output (ml) 330 865 #1 Posterior Back Prem 330 865 Casanova Other: Output Comment Catheter straight cath Vital Signs Temp Pulse Resp BP Pulse Ox 37.1 C 78 11 L 98/54 L 96 11/09/16 04:00 11/10/16 06:00 11/10/16 06:00 11/10/16 06:00 11/10/16 06:00 Laboratory Results 11/09/16 04:15 11/09/16 04:15 ICD10 Worksheet Patient Problems: Problems Problem Status Onset Arthrodesis status Acute Asthma exacerbation Acute Cervical radiculitis Acute Low back pain Acute Lumbosacral stenosis Acute Neck pain Acute
[2016-11-10] MEDS: INSULIN REGULAR HUMAN 100 UNIT/ML SC SCH (07:42)
[2016-11-10] MEDS: FLUoxetine 20 MG CAP PO SCH (08:09)
[2016-11-10] MEDS: morphINE SR 15 MG TAB PO SCH ×2 (08:09→21:49)
[2016-11-10] MEDS: FAMOTIDINE 20 MG TAB PO SCH ×2 (08:09→21:49)
[2016-11-10] MEDS: GABAPENTIN 300 MG CAP PO SCH ×2 (08:09→21:49)
[2016-11-10] MEDS: CYCLOBENZAPRINE 10 MG TAB PO SCH ×3 (08:09→21:50)
[2016-11-10] MEDS: POLYETHYLENE GLYCOL 3350 17 GM PKT PO PRN (08:10)
[2016-11-10] MEDS: SENNOSIDES/DOCUSATE SODIUM TAB PO SCH ×2 (08:10→21:49)
[2016-11-10] MEDS: ENOXAPARIN 40 MG/0.4 ML SYR SC SCH (08:10)
--- NOTE | 2016-11-10 09:06 | PDINTPN ---
Photographic Artist Progress Note Assessment/Plan: Assessment/Plan: * Status post extensive back surgery with hardware removal * Shock-resolved * Anemia-resolved * Pulmonary embolus-small right lung. Patient went on a long car ride prior to admission. This is likely the etiology. -will discuss anticoagulation with Neurosurgery. Consider IVC filter * Right upper extremity swelling-query DVT -upper extremity ultrasound currently pending * Pain-well controlled * Asthma-stable * Abdominal pain-resolved. * Respiratory-stable on minimal supplemental oxygen. Case discussed with nursing and neurosurgery. Subjective: Resting comfortably. Pain is tolerable. Denies any breathlessness. Objective: Vital Signs Temp Pulse Resp BP Pulse Ox 36.9 C 78 13 116/47 L 96 11/10/16 08:00 11/10/16 08:00 11/10/16 08:00 11/10/16 08:00 11/10/16 08:00 Laboratory Results 11/09/16 04:15 11/09/16 04:15 11/09/16 11/10/16 11/11/16 05:59 05:59 05:59 Intake Total 4565 2400 Output Total 3030 1390 Balance 1535 1010 Physical Exam - Physical Exam General Appearance: WD/WN, alert, no apparent distress EENT: PERRL/EOMI, normal ENT inspection, pharynx normal, TMs normal Neck: non-tender, full range of motion, supple, normal inspection Respiratory: chest non-tender, lungs clear, normal breath sounds Cardiac/Chest: normal peripheral pulses, regular rate, rhythm Abdomen: normal bowel sounds, non-tender, soft Pelvic Exam: deferred Rectal: deferred Skin: normal color, warm/dry Extremities: other (Right upper extremity swelling) Neuro/Psych: alert, normal mood/affect, oriented x 3 ICD10 Worksheet Patient Problems: Problems Problem Status Onset Arthrodesis status Acute Asthma exacerbation Acute Cervical radiculitis Acute Low back pain Acute Lumbosacral stenosis Acute Neck pain Acute
[2016-11-10] MEDS: oxyCODONE IR 5 MG TAB PO PRN ×3 (09:32→18:19)
[2016-11-10 09:38] LABS: HEMATOCRIT 25.1 % (38.0-47.0); HEMOGLOBIN 8.4 g/dL (12.6-16.3); MEAN CELL HEMOGLOBIN 31.6 pg (27.9-34.1); MEAN CELL HEMOGLOBIN CONCENTR. 33.5 g/dL (32.4-36.7); MEAN CELL VOLUME 94.4 fL (81.5-99.8); RED BLOOD CELL COUNT 2.66 10^6/uL (4.18-5.33); RED CELL DISTRIBUTION WIDTH 14.7 % (11.5-15.2)
[2016-11-10 10:03] LABS: ANION GAP 6 mEq/L (8-16); CALCIUM 8.3 mg/dL (8.5-10.4); CARBON DIOXIDE 25 mEq/l (22-31); CHLORIDE 100 mEq/L (97-110); CREATININE 0.7 mg/dL (0.6-1.0); GLOMERULAR FILTRATION RATE > 60; GLUCOSE 97 mg/dL (70-100); POTASSIUM 3.5 mEq/L (3.5-5.2); SODIUM 131 mEq/L (134-144)
[2016-11-10] MEDS: MAGNESIUM HYDROXIDE 30 ML UDCUP PO PRN (14:12)
[2016-11-10] MEDS: ATORVASTATIN CALCIUM 10 MG TAB PO SCH (21:49)
[2016-11-10] MEDS: ZOLPIDEM TARTRATE 5 MG TAB PO SCH (21:49)
[2016-11-11] MEDS: METHOCARBAMOL 750 MG TAB PO PRN ×3 (04:49→18:57)
[2016-11-11] MEDS: ACETAMINOPHEN 500 MG TAB PO SCH ×3 (04:49→21:28)
[2016-11-11] MEDS: LEVOTHYROXINE 150 MCG TAB PO SCH (04:49)
[2016-11-11] MEDS: oxyCODONE IR 5 MG TAB PO PRN ×3 (04:49→18:54)
[2016-11-11] MEDS: SENNOSIDES/DOCUSATE SODIUM TAB PO SCH ×2 (07:40→21:30)
[2016-11-11] MEDS: ENOXAPARIN 40 MG/0.4 ML SYR SC SCH (07:40)
[2016-11-11] MEDS: GABAPENTIN 300 MG CAP PO SCH ×2 (07:40→21:29)
[2016-11-11] MEDS: FAMOTIDINE 20 MG TAB PO SCH ×2 (07:41→21:29)
[2016-11-11] MEDS: FLUoxetine 20 MG CAP PO SCH (07:41)
[2016-11-11] MEDS: CYCLOBENZAPRINE 10 MG TAB PO SCH ×3 (07:41→21:29)
[2016-11-11] MEDS: morphINE SR 15 MG TAB PO SCH ×2 (07:41→21:30)
--- NOTE | 2016-11-11 07:56 | NEUSURGPN ---
Date of Surgery: 11/08/16 Post Op Day: 3 Assessment/Plan: 71 yr old female s/p T10-11 TLIF, L1-S1 fusion Plan: -Patient doing well with pain management, some right groin pain -Patient has history of terrible constipation with narcotics, bowel protocol ordered-pt had CT of abd after surgery that was ok-will continue to monitor, patient passing gas but feels distended -Will check Na tomorrow -PT/OT -Post op xrays reviewed with patient/stable -ALCIDES output 470, will leave in for today, possible removal tomorrow -Required straight cath yesterday x2, now urinating without difficulty on own -Patient has brace already, will need to wear it when out of bed -Patient has small PE, RUE DVT and superficial clot, Lovenox ok for now, may start full anticoagulation on Tuesday -SDU status Patient was seen by Dr Kaba as well Subjective: Sitting in chair feeling well Objective: AxO x3 PERRLA EOMI 5/5 BUE/BLE = Sensation intact to light touch BLE Right hand/forearm tingling ALCIDES in place dressing CDI Neuro Check Frequency: per routine Urinary Catheter in Place: No Catheter Insertion Date: 11/08/16 - Physician Discussed Patient with : Sesar Patient Seen by : Sesar Neurosurgery Physical Exam - Vitals, I&O, Labs I and O 11/10/16 11/11/16 11/12/16 05:59 05:59 05:59 Intake Total 2400 2786 Output Total 1390 1670 Balance 1010 1116 Intake: Oral (ml) 1300 2250 IV Infused (ml) 1100 536 Ns 1,000 ml @ 100 mls/hr 1100 536 IV CONT MAURI Rx#: [id number] Output: Urine (ml) 525 1200 Catheter 525 Toilet 1200 ALCIDES Drain Output (ml) 865 470 #1 Posterior Back Prem 865 470 Casanova Other: Output Comment Catheter straight cath Number of Voids Toilet 1 Vital Signs Temp Pulse Resp BP Pulse Ox 36.3 C 75 11 L 107/49 L 98 11/10/16 16:00 11/11/16 03:00 11/11/16 03:00 11/11/16 03:00 11/11/16 03:00 Laboratory Results 11/10/16 09:20 11/10/16 09:20 ICD10 Worksheet Patient Problems: Problems Problem Status Onset Arthrodesis status Acute Asthma exacerbation Acute Cervical radiculitis Acute Low back pain Acute Lumbosacral stenosis Acute Neck pain Acute
--- NOTE | 2016-11-11 09:04 | PDINTPN ---
Fishing Vessel Operator Progress Note Assessment/Plan: Assessment/Plan: * Status post extensive back surgery with hardware removal * Shock-resolved * Anemia-resolved * Pulmonary embolus-small right lung. -will discuss full anticoagulation with Neurosurgery * Right upper extremity DVT * Pain-well controlled * Asthma-stable * Abdominal pain-resolved. * Respiratory-stable on minimal supplemental oxygen. * Disposition-okay to transfer to medical surgical floor Case discussed with nursing and neurosurgery. Subjective: Resting comfortably in bed. Denies any pain. Was up ambulating the halls earlier. Objective: Vital Signs Temp Pulse Resp BP Pulse Ox 36.3 C 75 11 L 107/49 L 98 11/10/16 16:00 11/11/16 03:00 11/11/16 03:00 11/11/16 03:00 11/11/16 03:00 Laboratory Results 11/10/16 09:20 11/10/16 09:20 11/10/16 11/11/16 11/12/16 05:59 05:59 05:59 Intake Total 2400 2786 Output Total 1390 1670 Balance 1010 1116 Physical Exam - Physical Exam General Appearance: WD/WN, alert, no apparent distress EENT: PERRL/EOMI, normal ENT inspection Neck: non-tender, full range of motion, supple, normal inspection Respiratory: chest non-tender, lungs clear, normal breath sounds Cardiac/Chest: normal peripheral pulses, regular rate, rhythm Abdomen: normal bowel sounds, non-tender, soft Pelvic Exam: deferred Rectal: deferred Skin: normal color, warm/dry Extremities: non-tender, normal inspection Neuro/Psych: no motor/sensory deficits, alert, normal mood/affect, oriented x 3 ICD10 Worksheet Patient Problems: Problems Problem Status Onset Arthrodesis status Acute Asthma exacerbation Acute Cervical radiculitis Acute Low back pain Acute Lumbosacral stenosis Acute Neck pain Acute
[2016-11-11] MEDS: ATORVASTATIN CALCIUM 10 MG TAB PO SCH (21:29)
[2016-11-11] MEDS: ZOLPIDEM TARTRATE 5 MG TAB PO SCH (21:31)
[2016-11-11] MEDS: MAGNESIUM HYDROXIDE 30 ML UDCUP PO PRN (21:36)
[2016-11-12] MEDS: oxyCODONE IR 5 MG TAB PO PRN ×4 (00:35→14:35)
[2016-11-12] MEDS: LEVOTHYROXINE 150 MCG TAB PO SCH (05:19)
[2016-11-12] MEDS: ACETAMINOPHEN 500 MG TAB PO SCH ×3 (05:19→21:10)
[2016-11-12] MEDS: METHOCARBAMOL 750 MG TAB PO PRN (05:23)
[2016-11-12 05:44] LABS: % IMMATURE GRANULYOCYTES 0.5 % (0.0-1.1); ABSOLUTE IMMATURE GRANULOCYTES 0.04 10^3/uL (0.00-0.10); ABSOLUTE NRBC COUNT 0.02 10^3/uL (0-0.01); ADD DIFF? NO; ADD MORPH? NO; ADD SCAN? NO; ATYPICAL LYMPHOCYTE FLAG 0 (0-99); FRAGMENT RBC FLAG 0 (0-99); HEMATOCRIT 25.8 % (38.0-47.0); HEMOGLOBIN 8.7 g/dL (12.6-16.3); LEFT SHIFT FLG 10 (0-99); LIPEMIA HEMOLYSIS FLAG 80 (0-99); MEAN CELL HEMOGLOBIN 32.3 pg (27.9-34.1); MEAN CELL HEMOGLOBIN CONCENTR. 33.7 g/dL (32.4-36.7); MEAN CELL VOLUME 95.9 fL (81.5-99.8); MEAN PLATELET VOLUME 10.8 fL (8.7-11.7); NRBC-AUTO% 0.2 % (0.0-0.2); PLATELET CLUMPS FLAG 0 (0-99); PLATELET COUNT 164 10^3/uL (150-400); RED BLOOD CELL COUNT 2.69 10^6/uL (4.18-5.33); RED CELL DISTRIBUTION WIDTH 13.9 % (11.5-15.2)
[2016-11-12 05:54] LABS: INR 1.06 (0.83-1.16); PROTIME(PATIENT) 13.7 SEC (12.0-15.0)
[2016-11-12 05:55] LABS: APTT 31.2 SEC (23.0-38.0)
[2016-11-12] MEDS ORDERED: HEPARIN/DEXTROSE 500 ML IV SCH (06:00)
[2016-11-12] MEDS ORDERED: HEPARIN 10,000 UNIT/10 ML MDV IVP PRN (06:00)
[2016-11-12] MEDS: CYCLOBENZAPRINE 10 MG TAB PO SCH ×3 (09:30→21:12)
[2016-11-12] MEDS: FAMOTIDINE 20 MG TAB PO SCH ×2 (09:33→21:12)
[2016-11-12] MEDS: GABAPENTIN 300 MG CAP PO SCH ×3 (09:33→21:11)
[2016-11-12] MEDS: FLUoxetine 20 MG CAP PO SCH (09:34)
[2016-11-12] MEDS: morphINE SR 15 MG TAB PO SCH ×2 (09:34→21:11)
[2016-11-12] MEDS: SENNOSIDES/DOCUSATE SODIUM TAB PO SCH ×2 (09:34→21:09)
[2016-11-12] MEDS ORDERED: HEPARIN 10,000 UNIT/10 ML MDV IVP ONE (09:45)
[2016-11-12] MEDS: POLYETHYLENE GLYCOL 3350 17 GM PKT PO PRN (09:48)
--- NOTE | 2016-11-12 11:50 | NEUSURGPN ---
Assessment/Plan: 71 yr old female s/p T10-11 TLIF, L1-S1 fusion Plan: -Patient doing well with pain management, some right groin pain - likely due to manipulation of nerve during sx - increase gabapentin to TID 600mg -Patient has history of terrible constipation with narcotics, bowel protocol ordered-pt had CT of abd after surgery that was ok-will continue to monitor, patient passing gas but feels distended -Na improved 134 today -PT/OT -Post op xrays reviewed with patient/stable -ALCIDES - remove today -Patient has brace already, will need to wear it when out of bed -Patient has small PE, RUE DVT and superficial clot, Lovenox ok for now, may start full anticoagulation on today. Patient was seen by crit care in ICU, now that on floor will see if hospitalists can follow this patient Patient was seen by Dr Kaba as well Subjective: Pt resting in chair, states she is feeling good overall with the exception of right sided abdominal pain Objective: AAOx3 NAD VSS MAEx4 Motor 5/5 BLE UP in chair, brace on +LT Urinary Catheter in Place: No Catheter Insertion Date: 11/08/16 - Physician Discussed Patient with : Sesar Patient Seen by : Sesar Neurosurgery Physical Exam - Vitals, I&O, Labs I and O 11/11/16 11/12/16 11/13/16 05:59 05:59 05:59 Intake Total 2786 1575 Output Total 1670 200 Balance 1116 1375 Intake: Oral (ml) 2250 1150 IV Intake (ml) 425 IV Infused (ml) 536 Ns 1,000 ml @ 100 mls/hr 536 IV CONT MAURI Rx#: [id number] Output: Urine (ml) 1200 Toilet 1200 ALCIDES Drain Output (ml) 470 200 #1 Posterior Back Prem 470 200 Casanova Other: Intake Quantity No: npo Sufficient Number of Voids Toilet 1 1 1 Vital Signs Temp Pulse Resp BP Pulse Ox 36.9 C 68 16 137/83 H 98 11/12/16 11:00 11/12/16 11:00 11/12/16 11:00 11/12/16 11:00 11/12/16 11:00 Laboratory Results 11/12/16 05:15 11/12/16 05:15 ICD10 Worksheet Patient Problems: Problems Problem Status Onset Arthrodesis status Acute Asthma exacerbation Acute Cervical radiculitis Acute Low back pain Acute Lumbosacral stenosis Acute Neck pain Acute
--- NOTE | 2016-11-12 12:33 | SOAPPROG ---
SOAP Progress Note Assessment/Plan: Assessment/Plan: * Status post extensive back surgery with hardware removal * Pulmonary embolus-small right lung. -now on full dose heparin -she will need 3 months of anticoagulation total * Right upper extremity DVT * Pain-well controlled * Asthma-stable * Abdominal pain-resolved. * Respiratory-stable on minimal supplemental oxygen. Subjective: Sitting up eating lunch. Denies any back pain. Complains of some right hip pain predominantly when laying flat. Objective: Vital Signs Temp Pulse Resp BP Pulse Ox 36.9 C 68 16 137/83 H 98 11/12/16 11:00 11/12/16 11:00 11/12/16 11:00 11/12/16 11:00 11/12/16 11:00 Laboratory Results 11/12/16 05:15 11/12/16 05:15 11/11/16 11/12/16 11/13/16 05:59 05:59 05:59 Intake Total 2786 1575 Output Total 1670 200 Balance 1116 1375 PT 13.7 SEC (12.0-15.0) 11/12/16 05:15 INR 1.06 (0.83-1.16) 11/12/16 05:15 Physical Exam - Physical Exam General Appearance: WD/WN, alert, no apparent distress EENT: PERRL/EOMI, normal ENT inspection Neck: non-tender, full range of motion, supple, normal inspection Respiratory: chest non-tender, lungs clear, normal breath sounds Cardiac/Chest: normal peripheral pulses, regular rate, rhythm Abdomen: normal bowel sounds, non-tender, soft Pelvic Exam: deferred Rectal: deferred Neuro/Psych: no motor/sensory deficits, alert, normal mood/affect, oriented x 3 ICD10 Worksheet Patient Problems: Problems Problem Status Onset Arthrodesis status Acute Asthma exacerbation Acute Cervical radiculitis Acute Low back pain Acute Lumbosacral stenosis Acute Neck pain Acute
--- NOTE | 2016-11-12 15:34 | ASMTCMCOM ---
CM Note CM Note Notes: Spoke with pt and her re d/c options. Pt declined Inpt Rehab but is receptive to Homecare. She stated she had HC in past but couldn't remember which one. (Found in records: [facility]) She did not want [facility] as her had them and "didn't like the PT." Spoke with [facility] to confirm they still go to [facility] and sent referral. Received acceptance. Per pt, she said the MD would d/c her Tuesday. Date Signed: 11/12/2016 03:33 PM Electronically Signed By:SERJIO Oneal
[2016-11-12] MEDS ORDERED: MAGNESIUM CITRATE 300 ML BOTTLE PO ONE (16:10)
--- NOTE | 2016-11-12 16:14 | PDGENHP ---
History and Physical - Chief Complaint Acute back pain - History of Present Illness Primary care provider: Dr. Sunshine Velasquez Primary neurosurgeon: Dr. Cristian Kaba Primary service: Neurosurgery Reason for consultation: Venous thromboembolism HPI: 71-year-old female presenting with acute back pain located in her mid back resulting in the thoracic and lumbar fusion, complicated by associated constipation, edema located in her right upper extremity. The onset of her constipation was postoperatively and the patient has not moved her bowels in 5 days. The onset of the right upper extremity edema was after patient had an arterial line placed. The swelling in her upper extremity has been somewhat alleviated by heparin drip, after it was noted that the patient had superficial thrombophlebitis as well as an ulnar DVT. The constipation has been unalleviated by Senokot S and as needed laxatives. The back pain is responding well to oxycodone. The patient is increasing her mobility as tolerated. She has noted some pain located in her right groin area, not exacerbated by ambulation, somewhat alleviated by lying on the affected area. History Information - Allergies/Home Medication List Allergies/Adverse Reactions: Sulfa (Sulfonamide Antibiotics) Allergy (Mild, Verified 04/02/14 13:47) Hives Home Medications: Albuterol [Proventil Inhaler HFA (*)] 2 puffs IH DAILY PRN 05/31/11 [Last Taken 10/25/16] Cyclobenzaprine [Flexeril 10 MG (*)] 10 mg PO DAILY PRN 05/31/11 [Last Taken 02/23 20:00] Levothyroxine [Synthroid 150 mcg (*)] 150 mcg PO MOTUWETHFR@05/31/11 [Last Taken 11/08/16 05:00] Methylcellulose [Citrucel] 4 cap PO DAILY 05/31/11 [Last Taken 11/01/16] Multivitamins [Multivitamin (*)] 1 tab PO DAILY 05/31/11 [Last Taken 11/01/16] Levothyroxine Sodium 75 mcg PO SA@03/24/13 [Last Taken 11/07/16] Calcium Carbonate [Oyster Shell Calcium 500 mg (*)] 500 mg PO BID 12/20/13 [ Last Taken 11/01/16] Omeprazole 20 mg PO BID PRN 12/20/13 [Last Taken 11/07/16 20:00] Simvastatin [Zocor 20 mg] 20 mg PO HS 12/20/13 [Last Taken 11/07/16 20:00] Zolpidem Tartrate [Ambien 5MG (*)] 2.5 mg PO HS PRN 12/20/13 [Last Taken 21:00] Glucosamine/Chondroitin [Glucosamine/Chondroitin (*)] 1 cap PO BID 01/11/14 [ Last Taken 11/01/16] Azelastine HCl [Astepro] 1 spray NS DAILY PRN 03/13/14 [Last Taken 11/08/16 05: 00] [place]-3 Fatty Acids [Fish Oil 1000 mg (*)] 1,000 mg PO BID 03/13/14 [Last Taken 11/01/16] Gabapentin [Neurontin 300 MG (*)] 600 mg PO BID 04/02/14 [Last Taken 11/07/16 20 :00] Acetaminophen [Tylenol 325mg (*)] 325 mg PO DAILY PRN 10/07/16 [Last Taken 11/07 18:00] Ascorbic Acid [Vitamin C 500 mg (*)] 1,000 mg PO BID 10/07/16 [Last Taken ] C/E/Zn/Cu/OM3/DHA/EPA/LUT/ZEAX [Preservision Areds 2 Softgel] 1 each PO DAILY [Last Taken 11/01/16] Calcium Carbonate [Tums 500MG (*)] 500 mg PO DAILY PRN 10/07/16 [Last Taken ] FLUoxetine [Prozac 20 MG (*)] 20 mg PO DAILY 10/07/16 [Last Taken 11/08/16 05:00 ] Fluticasone Hfa 220 Mcg [Flovent 220 MCG Hfa MDI (*)] 1 puffs IH BID PRN [Last Taken 10/11/16] Ibuprofen [Motrin (*)] 200 mg PO DAILY PRN 10/07/16 [Last Taken 11/01/16] Spironolactone [Aldactone 50 MG (RX)] 50 mg PO DAILY 10/07/16 [Last Taken 18:00] amLODIPine BESYLATE [Norvasc 5 mg (*)] 5 mg PO DAILY 10/07/16 [Last Taken 05:00] I have personally reviewed and updated: family history, medical history, social history, surgical history - Past Medical History GERD, hypertension, hyperlipidemia Additional medical history: Hypothyroidism. Asthma since age 6. Chronic hyponatremia, felt to be euvolemic with a baseline serum sodium level 136, urine sodium level 27. Spondylolisthesis with radiculopathy. Major depressive disorder - Surgical History Additional surgical history: 01/09/2014 ACDF C4-C6, March of 2014 L4-S1 fusion with seroma and drain - Family History Additional family history: No family history of venous thromboembolism - Social History Smoking Status: Former smoker Alcohol Use: Occasionally Drug Use: None Additional social history: Normally independent in her ADLs Review of Systems Review of Systems: ROS: 10pt was reviewed & negative except for what was stated in HPI & below Cardiac: Reports: edema (Right upper extremity) Gastrointestinal: Reports: constipation Muscolosketal: Reports: back pain Physical Exam Physical Exam: Temp Pulse Resp BP Pulse Ox 36.8 C 71 16 105/74 98 11/12/16 15:38 11/12/16 15:38 11/12/16 15:38 11/12/16 15:38 11/12/16 15:38 O2 (L/minute) 1 Constitutional: no apparent distress, appears nourished, uncomfortable, No chronically ill appearing Eyes: PERRL, anicteric sclera, EOMI Ears, Nose, Mouth, Throat: moist mucous membranes, hearing normal, ears appear normal, no oral mucosal ulcers Cardiovascular: regular rate and rhythym, no murmur, rub, or gallop, edema ( Trace right upper extremity) Respiratory: no respiratory distress, no rales or rhonchi, clear to auscultation Gastrointestinal: normoactive bowel sounds, soft, non-tender abdomen, no palpable masses, distension (Mildly) Skin: other (No erythema, no ecchymoses, no induration, no superficial edema tenderness at the back surgical site) Neurologic: AAOx3, sensation intact bilaterally, No weakness, No facial droop Psychiatric: interacting appropriately, not anxious, not encephalopathic, thought process linear Lab Data & Imaging Review 11/12/16 05:15 11/12/16 05:15 WBC 8.60 10^3/uL (3.80-9.50) 11/12/16 05:15 RBC 2.69 10^6/uL (4.18-5.33) L 11/12/16 05:15 Hgb 8.7 g/dL (12.6-16.3) L 11/12/16 05:15 POC Hgb 8.5 gm/dL (12.6-16.3) L 11/08/16 17:27 Hct 25.8 % (38.0-47.0) L 11/12/16 05:15 POC Hct 25 % (38-47) L 11/08/16 17:27 MCV 95.9 fL (81.5-99.8) 11/12/16 05:15 MCH 32.3 pg (27.9-34.1) 11/12/16 05:15 MCHC 33.7 g/dL (32.4-36.7) 11/12/16 05:15 RDW 13.9 % (11.5-15.2) 11/12/16 05:15 Plt Count 164 10^3/uL (150-400) D 11/12/16 05:15 MPV 10.8 fL (8.7-11.7) 11/12/16 05:15 Neut % (Auto) 58.3 % (39.3-74.2) 11/12/16 05:15 Lymph % (Auto) 26.5 % (15.0-45.0) 11/12/16 05:15 Campbell % (Auto) 11.6 % (4.5-13.0) 11/12/16 05:15 Eos % (Auto) 2.9 % (0.6-7.6) 11/12/16 05:15 Baso % (Auto) 0.2 % (0.3-1.7) L 11/12/16 05:15 Nucleat RBC Rel Count 0.2 % (0.0-0.2) 11/12/16 05:15 Absolute Neuts (auto) 5.01 10^3/uL (1.70-6.50) 11/12/16 05:15 Absolute Lymphs (auto) 2.28 10^3/uL (1.00-3.00) 11/12/16 05:15 Absolute Monos (auto) 1.00 10^3/uL (0.30-0.80) H 11/12/16 05:15 Absolute Eos (auto) 0.25 10^3/uL (0.03-0.40) 11/12/16 05:15 Absolute Basos (auto) 0.02 10^3/uL (0.02-0.10) 11/12/16 05:15 Absolute Nucleated RBC 0.02 10^3/uL (0-0.01) H 11/12/16 05:15 Immature Gran % 0.5 % (0.0-1.1) 11/12/16 05:15 Immature Gran # 0.04 10^3/uL (0.00-0.10) 11/12/16 05:15 PT 13.7 SEC (12.0-15.0) 11/12/16 05:15 INR 1.06 (0.83-1.16) 11/12/16 05:15 APTT 31.2 SEC (23.0-38.0) 11/12/16 05:15 Heparin Anti-Xa, Unfract 0.56 IU/mL (0.32-0.67) 11/12/16 13:34 Puncture Site NONE GIVEN 11/08/16 22:50 Patient Temperature 37.0 DEGREES 11/08/16 22:50 pCO2 45 mmHg (34-38) H 11/08/16 22:50 pO2 43 mmHg (65-75) L 11/08/16 22:50 Total CO2 25 mEq/L (23-27) 11/08/16 22:50 ABG pH 7.35 (7.35-7.45) 11/08/16 22:50 ABG HCO3 24 mEq/L (22-26) 11/08/16 22:50 ABG O2 Saturation 79 % (92-95) L D 11/08/16 22:50 ABG Base Excess -1.1 mEq/L (-2.5-2.5) 11/08/16 22:50 Total O2 Concentration 2.0 LITERS 11/08/16 22:50 POC Sodium 142 mEq/L (134-144) 11/08/16 17:27 Sodium 134 mEq/L (134-144) 11/12/16 05:15 POC Potassium 3.6 mEq/L (3.3-5.0) 11/08/16 17:27 Potassium 3.5 mEq/L (3.5-5.2) 11/10/16 09:20 POC Chloride 100 mEq/L (97-110) 11/08/16 17:27 Chloride 100 mEq/L (97-110) 11/10/16 09:20 Carbon Dioxide 25 mEq/l (22-31) 11/10/16 09:20 Anion Gap 6 mEq/L (8-16) L 11/10/16 09:20 POC BUN 12 mg/dL (7-23) 11/08/16 17:27 BUN 12 mg/dL (7-23) 11/10/16 09:20 Creatinine 0.7 mg/dL (0.6-1.0) 11/10/16 09:20 POC Creatinine 0.9 mg/dL (0.6-1.0) 11/08/16 17:27 Estimated GFR > 60 11/10/16 09:20 Glucose 97 mg/dL (70-100) 11/10/16 09:20 POC Glucose 104 mg/dL (70-100) H 11/10/16 07:33 Calcium 8.3 mg/dL (8.5-10.4) L 11/10/16 09:20 Troponin I 0.049 ng/mL (0.000-0.034) H 11/08/16 18:15 NT-Pro-B Natriuret Pep 234 pg/mL (0-125) H 11/08/16 18:15 Amylase 95 IU/L (30-110) 11/09/16 11:20 Lipase 34 IU/L (23-300) 11/09/16 11:20 Patient ABO/Rh A POSITIVE 11/03/16 14:00 Antibody Screen NEGATIVE 11/03/16 14:00 Crossmatch IS Only See Detail 11/03/16 14:00 Visualized and Interpreted imaging results: Yes Interpretation: CT of the chest demonstrating right lower lobe pulmonary embolism, no focal airspace disease, left lower lobe atelectasis present Assessment & Plan Assessment: 71-year-old female presents with acute on chronic back pain, requiring thoracic and lumbar surgery, complicated by venous thromboembolism and constipation Plan: 1. Venous thromboembolism. Acute, new problem this provider, further workup indicated. Provoked, most likely etiology is right upper extremity DVT on US in the ulnar vein with distal embolization to the right lower lobe resulting in acute pulmonary embolism. Given that this was provoked, most likely duration of therapy will be 3 months. -patient has received a heparin drip perioperatively, has not experienced bleeding complications, but she is a high risk for bleeding complications given her 2015 postsurgical seroma -reviewed outside records including 04/07/2014 discharge summary by Eric Johnson from Neurosurgery, characterizing patient's most recent hospitalization for L4- S1 fusion complicated by seroma requiring drainage -discussed the risks and benefits of systemic anticoagulation with the patient, and she is electing for Coumadin given its reversal potential, as well as a Lovenox bridge -will initiate the Lovenox bridge at this time, 80 mg twice daily, to overlap with a therapeutic INR of 2 to 3 by 24 hours -will initiate Coumadin 5 mg daily now, bridge with Lovenox -will monitor daily INR -would recommend outpatient Coumadin Clinic with the next outpatient INR on Tuesday or Tuesday, depending on how rapidly the INR increases over the next couple days -patient will most likely require D-dimer and possibly upper extremity ultrasound in 3 months through her PCP office 2. Constipation. Acute, postsurgically, continue bowel regimen and add magnesium citrate today, gauge effect 3. Hypo natremia. Chronic, level is currently better than baseline, no indication to continue monitoring unless the patient is receiving ongoing IV fluids 4. Atelectasis. Acute, secondary to postsurgical state, recommend incentive spirometer 5. Thoracic and lumbar fusion. Neurosurgery remains primary service, disposition at their discretion Hospital Medicine will continue to consult in this patient's daily care. Discussed with Malgorzata Henry, hospitalist provider, the patient has been signed out to me for consultation evaluation.
[2016-11-12] MEDS: WARFARIN SODIUM 5 MG TAB PO SCH (17:06)
[2016-11-12] MEDS: ENOXAPARIN 80 MG/0.8 ML SYR SC SCH (17:06)
[2016-11-12] MEDS: ATORVASTATIN CALCIUM 10 MG TAB PO SCH (21:11)
[2016-11-12] MEDS: ZOLPIDEM TARTRATE 5 MG TAB PO SCH (23:33)
[2016-11-13] MEDS: ENOXAPARIN 80 MG/0.8 ML SYR SC SCH ×2 (04:04→16:17)
[2016-11-13 04:29] LABS: INR 1.14 (0.83-1.16); PROTIME(PATIENT) 14.5 SEC (12.0-15.0)
[2016-11-13] MEDS: ACETAMINOPHEN 500 MG TAB PO SCH ×3 (04:50→21:42)
[2016-11-13] MEDS: METHOCARBAMOL 750 MG TAB PO PRN ×3 (04:50→16:18)
[2016-11-13] MEDS ORDERED: LEVOTHYROXINE 150 MCG TAB PO SCH (06:00)
--- NOTE | 2016-11-13 08:35 | SOAPPROG ---
SOAP Progress Note Assessment/Plan: Assessment: 71 yr old female s/p T10-11 TLIF, L1-S1 fusion. Doing well today Plan PT/OT ambulatory with walker RUE DVT being anticoagulated Subjective: Sitting at edge of bed, eating breakfast. Feeling good. Independent. Objective: Vital Signs Temp Pulse Resp BP Pulse Ox 37.1 C 72 16 127/71 H 96 11/13/16 04:00 11/13/16 08:26 11/13/16 08:26 11/13/16 08:26 11/13/16 08:26 Laboratory Results 11/12/16 05:15 11/12/16 05:15 11/12/16 11/13/16 11/14/16 05:59 05:59 05:59 Intake Total 1575 1000 Output Total 200 Balance 1375 1000 PT 14.5 SEC (12.0-15.0) 11/13/16 04:10 INR 1.14 (0.83-1.16) 11/13/16 04:10 INcision: CDI Neuro: 5/5 sens +Lt ambulatory ICD10 Worksheet Patient Problems: Problems Problem Status Onset Arthrodesis status Acute Asthma exacerbation Acute Cervical radiculitis Acute Low back pain Acute Lumbosacral stenosis Acute Neck pain Acute
[2016-11-13] MEDS: BISACODYL 10 MG SUPP PR PRN (09:23)
[2016-11-13] MEDS: SENNOSIDES/DOCUSATE SODIUM TAB PO SCH ×2 (09:25→20:42)
[2016-11-13] MEDS: GABAPENTIN 300 MG CAP PO SCH ×3 (09:25→21:42)
[2016-11-13] MEDS: FLUoxetine 20 MG CAP PO SCH (09:26)
[2016-11-13] MEDS: oxyCODONE IR 5 MG TAB PO PRN ×3 (09:26→20:41)
[2016-11-13] MEDS: morphINE SR 15 MG TAB PO SCH ×2 (09:26→21:43)
[2016-11-13] MEDS: FAMOTIDINE 20 MG TAB PO SCH ×2 (09:26→20:42)
[2016-11-13] MEDS: CYCLOBENZAPRINE 10 MG TAB PO SCH ×3 (09:26→21:43)
--- NOTE | 2016-11-13 12:51 | HOSPPROG ---
Hospitalist Progress Note Assessment/Plan: 71-year-old woman admitted with back pain and underwent TLIF T10-T11 and fusion L1-S1 on November [address] Kaba. Postop course was complicated by DVT and small PE. # postop back surgery. Care per Neurosurgery she is doing quite well with therapy and will be discharged home. # DVT and PE currently on Lovenox and Coumadin. Will continue until INR 2-3. Patient minimally symptomatic except for some arm swelling which is improving. * Coumadin teaching * Daily INR * Will follow up with anti coag clinic. # hypothyroidism # asthma status post intubation for surgery is doing well from a respiratory standpoint postop. # constipation. Had small bowel movement today will continue bowel protocol, encourage ambulation # GERD. Subjective: Patient new to me and chart reviewed doing well postop denies any shortness of breath or chest pain. Ambulating still constipated did have a very small bowel movement this morning. Objective: Vital Signs Temp Pulse Resp BP Pulse Ox 37.1 C 72 16 127/71 H 96 11/13/16 04:00 11/13/16 08:26 11/13/16 08:26 11/13/16 08:26 11/13/16 08:26 Laboratory Results 11/12/16 05:15 11/12/16 05:15 11/12/16 11/13/16 11/14/16 05:59 05:59 05:59 Intake Total 1575 1000 Output Total 200 Balance 1375 1000 PT 14.5 SEC (12.0-15.0) 11/13/16 04:10 INR 1.14 (0.83-1.16) 11/13/16 04:10 - Physical Exam Constitutional: no apparent distress, not in pain Eyes: PERRL, EOMI Ears, Nose, Mouth, Throat: moist mucous membranes Cardiovascular: regular rate and rhythym, no murmur, rub, or gallop Respiratory: no respiratory distress, no rales or rhonchi, clear to auscultation Gastrointestinal: normoactive bowel sounds, tenderness (Right lower quadrant no guarding or rebound), No guarding, No rebound Genitourinary: no bladder fullness Skin: warm Neurologic: AAOx3 Psychiatric: interacting appropriately, not anxious ICD10 Worksheet Patient Problems: Problems Problem Status Onset Asthma exacerbation Acute Cervical radiculitis Acute Neck pain Acute Arthrodesis status Acute Low back pain Acute Lumbosacral stenosis Acute
[2016-11-13] MEDS: POLYETHYLENE GLYCOL 3350 17 GM PKT PO PRN (13:45)
--- NOTE | 2016-11-13 14:54 | SOAPPROG ---
SOAP Progress Note Assessment/Plan: Assessment/Plan: * Status post extensive back surgery with hardware removal * Pulmonary embolus-small right lung. -now on full dose heparin -she will need 3 months of anticoagulation total * Right upper extremity DVT * Fatigue-improved * Pain-well controlled * Asthma-stable * Abdominal pain-resolved. * Respiratory-stable on minimal supplemental oxygen. Subjective: Tired from physical therapy. Denies breathlessness. There is no cough or production of sputum. Objective: Vital Signs Temp Pulse Resp BP Pulse Ox 37.1 C 72 16 127/71 H 96 11/13/16 04:00 11/13/16 08:26 11/13/16 08:26 11/13/16 08:26 11/13/16 08:26 Laboratory Results 11/12/16 05:15 11/12/16 05:15 11/12/16 11/13/16 11/14/16 05:59 05:59 05:59 Intake Total 1575 1000 Output Total 200 Balance 1375 1000 PT 14.5 SEC (12.0-15.0) 11/13/16 04:10 INR 1.14 (0.83-1.16) 11/13/16 04:10 Physical Exam - Physical Exam General Appearance: alert, no apparent distress EENT: PERRL/EOMI, normal ENT inspection Neck: non-tender, full range of motion, supple, normal inspection Cardiac/Chest: normal peripheral pulses, regular rate, rhythm, systolic murmur Peripheral Pulses: 2+: carotid (R), carotid (L), femoral (R), femoral (L), dorsalis-pedis (R), dorsalis-pedis (L) Abdomen: normal bowel sounds, non-tender, soft Pelvic Exam: deferred Rectal: deferred Skin: normal color, warm/dry Extremities: normal range of motion, non-tender, normal inspection, normal capillary refill ICD10 Worksheet Patient Problems: Problems Problem Status Onset Arthrodesis status Acute Asthma exacerbation Acute Cervical radiculitis Acute Low back pain Acute Lumbosacral stenosis Acute Neck pain Acute
[2016-11-13] MEDS: WARFARIN SODIUM 5 MG TAB PO SCH ×2 (16:18→16:20)
[2016-11-13] MEDS: ATORVASTATIN CALCIUM 10 MG TAB PO SCH (20:41)
[2016-11-13] MEDS: ZOLPIDEM TARTRATE 5 MG TAB PO SCH (21:55)
[2016-11-14] MEDS: ENOXAPARIN 80 MG/0.8 ML SYR SC SCH ×2 (03:36→15:35)
[2016-11-14] MEDS: ACETAMINOPHEN 500 MG TAB PO SCH ×3 (05:05→22:45)
[2016-11-14 05:25] LABS: INR 1.79 (0.83-1.16); PROTIME(PATIENT) 20.9 SEC (12.0-15.0)
[2016-11-14] MEDS: oxyCODONE IR 5 MG TAB PO PRN ×3 (05:26→22:45)
[2016-11-14] MEDS: BISACODYL 10 MG SUPP PR PRN (05:26)
[2016-11-14] MEDS: SENNOSIDES/DOCUSATE SODIUM TAB PO SCH ×2 (08:45→22:48)
[2016-11-14] MEDS: CYCLOBENZAPRINE 10 MG TAB PO SCH (08:46)
[2016-11-14] MEDS: GABAPENTIN 300 MG CAP PO SCH ×3 (08:46→22:43)
[2016-11-14] MEDS: FLUoxetine 20 MG CAP PO SCH (08:46)
[2016-11-14] MEDS: morphINE SR 15 MG TAB PO SCH ×2 (08:46→22:44)
[2016-11-14] MEDS: FAMOTIDINE 20 MG TAB PO SCH ×2 (08:46→22:43)
[2016-11-14] MEDS ORDERED: CYCLOBENZAPRINE 10 MG TAB PO PRN (11:41)
--- NOTE | 2016-11-14 11:42 | SOAPPROG ---
SOAP Progress Note Assessment/Plan: Assessment: 71 yr old female s/p T10-11 TLIF, L1-S1 fusion. Doing well today, but feels tired Plan: Will change flexeril from scheduled to PRN. PT/OT ambulatory with walker FARAZ DVT being anticoagulated plan to DC Tuesday11/14/16 11:42 Subjective: out of bed in chair. doing well. ambulated hallway 10 laps yesterday Objective: Vital Signs Temp Pulse Resp BP Pulse Ox 36.6 C 77 16 143/58 H 94 11/13/16 23:21 11/13/16 23:21 11/13/16 23:21 11/13/16 23:21 11/13/16 23:21 Laboratory Results 11/14/16 05:00 11/12/16 05:15 11/13/16 11/14/16 11/15/16 05:59 05:59 05:59 Intake Total 1000 425 Balance 1000 425 PT 20.9 SEC (12.0-15.0) H 11/14/16 05:00 INR 1.79 (0.83-1.16) H 11/14/16 05:00 Neuro: VASQUEZ, sens +LT INcision: CDI ICD10 Worksheet Patient Problems: Problems Problem Status Onset Arthrodesis status Acute Asthma exacerbation Acute Cervical radiculitis Acute Low back pain Acute Lumbosacral stenosis Acute Neck pain Acute
--- NOTE | 2016-11-14 14:06 | SOAPPROG ---
SOAP Progress Note Assessment/Plan: Assessment/Plan: * Status post extensive back surgery with hardware removal * Pulmonary embolus-small right lung. -now on full dose heparin -she will need 3 months of Coumadin * Right upper extremity DVT * Fatigue-improved * Pain-well controlled * Asthma-stable * Abdominal pain-resolved. * Respiratory-stable on minimal supplemental oxygen. Subjective: Looks and feels much improved. Less breathless. Pain is well tolerated. Objective: Vital Signs Temp Pulse Resp BP Pulse Ox 36.6 C 77 16 143/58 H 94 11/13/16 23:21 11/13/16 23:21 11/13/16 23:21 11/13/16 23:21 11/13/16 23:21 Laboratory Results 11/14/16 05:00 11/12/16 05:15 11/13/16 11/14/16 11/15/16 05:59 05:59 05:59 Intake Total 1000 425 Balance 1000 425 PT 20.9 SEC (12.0-15.0) H 11/14/16 05:00 INR 1.79 (0.83-1.16) H 11/14/16 05:00 Physical Exam - Physical Exam General Appearance: alert EENT: PERRL/EOMI Neck: non-tender, full range of motion, supple, normal inspection Respiratory: decreased breath sounds Cardiac/Chest: normal peripheral pulses, regular rate, rhythm Abdomen: normal bowel sounds, non-tender, soft Pelvic Exam: deferred Rectal: deferred Skin: normal color, warm/dry Neuro/Psych: no motor/sensory deficits, alert, normal mood/affect, oriented x 3 ICD10 Worksheet Patient Problems: Problems Problem Status Onset Arthrodesis status Acute Asthma exacerbation Acute Cervical radiculitis Acute Low back pain Acute Lumbosacral stenosis Acute Neck pain Acute
--- NOTE | 2016-11-14 14:17 | HOSPPROG ---
Hospitalist Progress Note Assessment/Plan: 71-year-old woman admitted with back pain and underwent TLIF T10-T11 and fusion L1-S1 on November [address] Kaba. Postop course was complicated by DVT and small PE. # postop back surgery. Care per Neurosurgery she is doing quite well with therapy and will be discharged home. # DVT and PE currently on Lovenox and Coumadin. Will continue until INR 2-3. Patient minimally symptomatic except for some arm swelling which is improving. * Coumadin teaching * Daily INR * Will follow up with anti coag clinic. # hypothyroidism # asthma status post intubation for surgery is doing well from a respiratory standpoint postop. # constipation. Had small bowel movement today will continue bowel protocol, encourage ambulation * i will add relistor # GERD. Subjective: Doing well. Still complains of constipation Objective: Vital Signs Temp Pulse Resp BP Pulse Ox 36.6 C 77 16 143/58 H 94 11/13/16 23:21 11/13/16 23:21 11/13/16 23:21 11/13/16 23:21 11/13/16 23:21 Laboratory Results 11/14/16 05:00 11/12/16 05:15 11/13/16 11/14/16 11/15/16 05:59 05:59 05:59 Intake Total 1000 425 Balance 1000 425 PT 20.9 SEC (12.0-15.0) H 11/14/16 05:00 INR 1.79 (0.83-1.16) H 11/14/16 05:00 - Physical Exam Constitutional: uncomfortable Eyes: PERRL Ears, Nose, Mouth, Throat: moist mucous membranes Cardiovascular: regular rate and rhythym, no murmur, rub, or gallop Respiratory: no respiratory distress, no rales or rhonchi, clear to auscultation Gastrointestinal: normoactive bowel sounds, tenderness Genitourinary: no bladder fullness Skin: warm Neurologic: AAOx3 Psychiatric: interacting appropriately, not anxious ICD10 Worksheet Patient Problems: Problems Problem Status Onset Arthrodesis status Acute Asthma exacerbation Acute Cervical radiculitis Acute Low back pain Acute Lumbosacral stenosis Acute Neck pain Acute
[2016-11-14] MEDS ORDERED: METHYLNALTREXONE BROMIDE 12 MG/0.6 ML INJ SC ONE (14:18)
[2016-11-14] MEDS: METHOCARBAMOL 750 MG TAB PO PRN (15:35)
[2016-11-14] MEDS ORDERED: WARFARIN SODIUM 3 MG TAB PO SCH (16:00)
[2016-11-14] MEDS: ZOLPIDEM TARTRATE 5 MG TAB PO SCH (22:41)
[2016-11-14] MEDS: ATORVASTATIN CALCIUM 10 MG TAB PO SCH (22:44)
[2016-11-14 23:41] VITALS: TEMP 99.4
[2016-11-15] MEDS: oxyCODONE IR 5 MG TAB PO PRN ×2 (02:57→10:52)
[2016-11-15] MEDS: METHOCARBAMOL 750 MG TAB PO PRN ×2 (02:57→10:53)
[2016-11-15] MEDS: ENOXAPARIN 80 MG/0.8 ML SYR SC SCH (03:02)
[2016-11-15 03:25] LABS: INR 1.86 (0.83-1.16); PROTIME(PATIENT) 21.5 SEC (12.0-15.0)
[2016-11-15] MEDS: ACETAMINOPHEN 500 MG TAB PO SCH (05:20)
[2016-11-15] MEDS: LEVOTHYROXINE 150 MCG TAB PO SCH (05:20)
--- NOTE | 2016-11-15 08:09 | NEUSURGPN ---
Date of Surgery: 11/08/16 Post Op Day: 7 Assessment/Plan: 71 yr old female s/p T10-11 TLIF, L1-S1 fusion Plan: Patient feeling well today, would like to go home Had breakthrough pain last evening, tolerating PO meds this am Dressing removed Will discharge home today Defer Coumadin prescription to Medicine team Patient was seen by Dr Kaba as well Subjective: Patient has right hip pain Objective: AxO x3 PERRLA EOMI 5/5 BLE Sensation intact light touch BLE Incision CDI Neuro Check Frequency: per routine Urinary Catheter in Place: No Catheter Insertion Date: 11/08/16 - Physician Discussed Patient with : Sesar Patient Seen by : Sesar Neurosurgery Physical Exam - Vitals, I&O, Labs I and O 11/14/16 11/15/16 11/16/16 05:59 05:59 05:59 Intake Total 425 1000 Balance 425 1000 Intake: Oral (ml) 425 1000 Other: Intake Quantity Yes Yes Sufficient Number of Voids Toilet 1 1 Number of Stools Toilet 1 Vital Signs Temp Pulse Resp BP Pulse Ox 37.4 C 71 18 136/64 H 92 11/14/16 23:41 11/14/16 23:41 11/14/16 23:41 11/14/16 23:41 11/14/16 23:41 Laboratory Results 11/14/16 05:00 11/12/16 05:15 ICD10 Worksheet Patient Problems: Problems Problem Status Onset Arthrodesis status Acute Asthma exacerbation Acute Cervical radiculitis Acute Low back pain Acute Lumbosacral stenosis Acute Neck pain Acute
[2016-11-15 08:52] VITALS: BP 140/83; PULSE 70; RESP 16; O2SAT 95
[2016-11-15] MEDS: GABAPENTIN 300 MG CAP PO SCH (09:48)
[2016-11-15] MEDS: SENNOSIDES/DOCUSATE SODIUM TAB PO SCH (09:48)
[2016-11-15] MEDS: FLUoxetine 20 MG CAP PO SCH (09:48)
[2016-11-15] MEDS: morphINE SR 15 MG TAB PO SCH (09:48)
[2016-11-15] MEDS: FAMOTIDINE 20 MG TAB PO SCH (09:48)
--- NOTE | 2016-11-15 10:13 | PDIAF ---
- Diagnosis Diagnosis: S/P T10-11 TLIF with L1-S1 fusion Code Status: Full Code - Medication Management Discharge Medications: Medications to Continue on Transfer Albuterol [Proventil Inhaler HFA (*)] 2 puffs IH DAILY PRN 05/31/11 [Last Taken 10/25/16] Levothyroxine [Synthroid 150 mcg (*)] 150 mcg PO MOTUWETHFR@05/31/11 [Last Taken 11/08/16 05:00] Methylcellulose [Citrucel] 4 cap PO DAILY 05/31/11 [Last Taken 11/01/16] Multivitamins [Multivitamin (*)] 1 tab PO DAILY 05/31/11 [Last Taken 11/01/16] Levothyroxine Sodium 75 mcg PO SA@03/24/13 [Last Taken 11/07/16] Calcium Carbonate [Oyster Shell Calcium 500 mg (*)] 500 mg PO BID 12/20/13 [ Last Taken 11/01/16] Omeprazole 20 mg PO BID PRN 12/20/13 [Last Taken 11/07/16 20:00] Simvastatin [Zocor 20 mg] 20 mg PO HS 12/20/13 [Last Taken 11/07/16 20:00] Zolpidem Tartrate [Ambien 5MG (*)] 2.5 mg PO HS PRN 12/20/13 [Last Taken 21:00] Azelastine HCl [Astepro] 1 spray NS DAILY PRN 03/13/14 [Last Taken 11/08/16 05: 00] [place]-3 Fatty Acids [Fish Oil 1000 mg (*)] 1,000 mg PO BID 03/13/14 [Last Taken 11/01/16] Gabapentin [Neurontin 300 MG (*)] 600 mg PO BID 04/02/14 [Last Taken 11/07/16 20 :00] Acetaminophen [Tylenol 325mg (*)] 325 mg PO DAILY PRN 10/07/16 [Last Taken 11/07 18:00] Ascorbic Acid [Vitamin C 500 mg (*)] 1,000 mg PO BID 10/07/16 [Last Taken ] C/E/Zn/Cu/OM3/DHA/EPA/LUT/ZEAX [Preservision Areds 2 Softgel] 1 each PO DAILY [Last Taken 11/01/16] Calcium Carbonate [Tums 500MG (*)] 500 mg PO DAILY PRN 10/07/16 [Last Taken ] FLUoxetine [Prozac 20 MG (*)] 20 mg PO DAILY 10/07/16 [Last Taken 11/08/16 05:00 ] Fluticasone Hfa 220 Mcg [Flovent 220 MCG Hfa MDI (*)] 1 puffs IH BID PRN [Last Taken 10/11/16] Spironolactone [Aldactone] 50 mg PO DAILY 10/07/16 [Last Taken 11/07/16 18:00] amLODIPine BESYLATE [Norvasc 5 mg (*)] 5 mg PO DAILY 10/07/16 [Last Taken 05:00] Acetaminophen [Tylenol ES 500 mg (*)] 1,000 mg PO Q8HRS tab 11/15/16 [Last Taken Unknown] Cyclobenzaprine [Flexeril 10 MG (*)] 10 mg PO HS PRN #30 tab 11/15/16 [Last Taken Unknown] Enoxaparin [Lovenox 80 MG (*)] 80 mg SC BID@0400,1600 syr 11/15/16 [Last Taken Unknown] Methocarbamol [Robaxin 750 mg (*)] 750 mg PO BID PRN #60 tab 11/15/16 [Last Taken Unknown] Sennosides/Docusate Sodium [Senokot-S] 1 - 2 tab PO BID tab 11/15/16 [Last Taken Unknown] Warfarin Sodium [Coumadin 3MG (*)] 3 mg PO DAILY AT 4PM tab 11/15/16 [Last Taken Unknown] morphINE SR [Ms Contin/Oramorph 15 mg (*)] 15 mg PO BID #30 tab 11/15/16 [Last Taken Unknown] oxyCODONE IR [Oxycodone Ir (*)] 5 - 10 mg PO Q4HRS PRN #60 tab 11/15/16 [Last Taken Unknown] Discharge Medications: Refer to the Discharge Home Medication list for PRN reason. PICC Care - Routine: N/A - Orders Services needed: Home Care, Physical Therapy, Occupational Therapy Home Care Face to Face: I certify that this patient was under my care and that I had the required [id number] encounter meeting the encounter requirements on the discharge day. My findings support the fact that the patient is homebound as defined in Home Care Face to Face Continued: CMS Chapter 7 Medicare Benefits Manual 30.1.1 , The condition of the patient is such that there exists a normal inability to leave home and consequently, leaving home would require a considerable and taxing effort. Diet Recommendation: no restrictions on diet Diet Texture: Regular Texture Diet Sanjiv Stockings Discontinue Date: When ambulating 100 yards 3-4 times per day Wound Care Instructions: Leave steri strips in place, will fall off on own or we will remove them at post op visit Activity/Weight Bearing Restrictions: No bending/twisting or lifting greater than 10 pounds Equipment: Wear brace when out of bed - Follow Up Care Current Providers and Referrals: Rossy Velasquez MD [Primary Care Provider] -
--- NOTE | 2016-11-15 10:21 | HOSPPROG ---
Hospitalist Progress Note Assessment/Plan: 71-year-old woman admitted with back pain and underwent TLIF T10-T11 and fusion L1-S1 on November [address] Kaba. Postop course was complicated by DVT and small PE. # postop back surgery. Care per Neurosurgery she is doing quite well with therapy and will be discharged home. # DVT and PE currently on Lovenox and Coumadin. Will continue until INR 2-3. Patient minimally symptomatic except for some arm swelling which is improving. * Continue Coumadin at 3 mg daily, patient has received Coumadin teaching * Continue Lovenox until INR greater than 2 * Given Rx for L[facility]ox [facility] * Lovenox teaching by RN prior to discharge # hypothyroidism # asthma status post intubation for surgery is doing well from a respiratory standpoint postop. # constipation. Had small bowel movement today will continue bowel protocol, encourage ambulation * i will add relistor # GERD. Subjective: Doing well, ready to go home. Has not received Lovenox teaching but is willing to do herself is not interested and home nursing. Objective: Vital Signs Temp Pulse Resp BP Pulse Ox 37.4 C 70 16 140/83 H 95 11/14/16 23:41 11/15/16 08:00 11/15/16 08:00 11/15/16 08:00 11/15/16 08:00 Laboratory Results 11/14/16 05:00 11/12/16 05:15 11/14/16 11/15/16 11/16/16 05:59 05:59 05:59 Intake Total 425 1000 Balance 425 1000 PT 21.5 SEC (12.0-15.0) H 11/15/16 02:50 INR 1.86 (0.83-1.16) H 11/15/16 02:50 - Physical Exam Constitutional: no apparent distress Neurologic: AAOx3 Psychiatric: interacting appropriately, not anxious, not encephalopathic ICD10 Worksheet Patient Problems: Problems Problem Status Onset Asthma exacerbation Acute Cervical radiculitis Acute Neck pain Acute Arthrodesis status Acute Low back pain Acute Lumbosacral stenosis Acute
--- NOTE | 2016-11-15 14:58 | ASMTCMCOM ---
CM Note CM Note Notes: Pt medically stable for d/c w [facility], orders sent. Date Signed: 11/15/2016 02:58 PM Electronically Signed By:SERJIO Paz
--- NOTE | 2016-11-15 15:00 | ASDISCHSUM ---
Discharge Information Plan Status:Home with Home Health Medically Cleared to Leave: Discharge Date:11/15/2016 01:36 PM CM D/C Disposition:Home Health Service ADT D/C Disposition:Home Health Service Projected Discharge Date:11/15/2016 11:00 AM Transportation at D/C: Discharge Delay Reason: Follow-Up Date:11/15/2016 11:00 AM Discharge Slot: Final Diagnosis:Lumbrosacral stenosis Placement Information Referral Type:*Home Health Care Services Referral ID:[id number] Provider Name:[facility] [place] Address 1:[address] Phone Number: Address 2: Fax Number: City:[place] Selection Factors: State:[place] Patient Contact Information Contact Name:NO Relationship: Address:[address] City:[place] Alternate Phone: State/Zip Code:[place] [address] Email: Financial Information Financial Class: Primary Plan Desc:MEDICARE INPATIENT Primary Plan Number:[id number] Secondary Plan Desc:[employer]ARP/MDR SUPPLEMENT Secondary Plan Number:[id number] Assessment Information [facility] CM Progress Note CM Note CM Note Notes: 71 year old female admitted for lumbrosacral stenosis. She has a hx of L4/5 & L5/S1 TLIF in 03/24, HTN and HLD. This is POD#1 after T10-11 TLIF and L1/S1 Fusion. CM to follow for discharge needs. Date Signed: 11/09/2016 10:01 AM Electronically Signed By:Isi Navarrete LCSW BC CM Progress Note CM Note CM Note Notes: Spoke with pt and her re d/c options. Pt declined Inpt Rehab but is receptive to Homecare. She stated she had HC in past but couldn't remember which one. (Found in records: [facility]) She did not want [facility] as her had them and "didn't like the PT." Spoke with [facility] to confirm they still go to [facility] and sent referral. Received acceptance. Per pt, she said the MD would d/c her Tuesday. Date Signed: 11/12/2016 03:33 PM Electronically Signed By:SERJIO Oneal [facility] CM Progress Note CM Note CM Note Notes: Pt medically stable for d/c w [facility], orders sent. Date Signed: 11/15/2016 02:58 PM Electronically Signed By:SERJIO Paz Intervention Information Intervention Type:*IM-Signed Date of Service:11/15/2016 09:11 AM Patient Type:Inpatient Staff Member:Gloria Dyer Hours: Discipline: Severity: Comment:
== END 2016-11-15 13:36 | disposition home health service (06) | DRG 456 ==
LOC: F3N 06:01 → F2N 15:37 → F3N 11-11 12:30
PROVIDERS: ADMIT Neurological Surgery; ATTEND Neurological Surgery
PROC: 0RG Upper Joints, Fusion (ICD-10-PCS; principal; 2016-11-08 07:30)
PROC: 3E0U0GB Introduction of Recombinant Bone Morphogenetic Protein into Joints, Open Approach (ICD-10-PCS; principal; 2016-11-08 07:30)
PROC: 0SG10JJ Fusion of 2 or more Lumbar Vertebral Joints with Synthetic Substitute, Posterior Approach, Anterior Column, Open Approach (ICD-10-PCS; principal; 2016-11-08 07:30)
PROC: 0QP004Z Removal of Internal Fixation Device from Lumbar Vertebra, Open Approach (ICD-10-PCS; principal; 2016-11-08 07:30)
PROC: 0RT90ZZ Resection of Thoracic Vertebral Disc, Open Approach (ICD-10-PCS; principal; 2016-11-08 07:30)
DX: M48.04 Spinal stenosis, thoracic region (principal); M48.061 Spinal stenosis, lumbar region without neurogenic claudication; M48.07 Spinal stenosis, lumbosacral region; M47.25 Other spondylosis with radiculopathy, thoracolumbar region; Z98.1 Arthrodesis status; I26.99 Other pulmonary embolism without acute cor pulmonale; I82.611 Acute embolism and thrombosis of superficial veins of right upper extremity; K59.00 Constipation, unspecified; J98.11 Atelectasis; E87.1 Hypo-osmolality and hyponatremia; K21.9 Gastro-esophageal reflux disease without esophagitis; E03.9 Hypothyroidism, unspecified; J45.909 Unspecified asthma, uncomplicated; Z87.891 Personal history of nicotine dependence; Z96.659 Presence of unspecified artificial knee joint
CPT/HCPCS: 82947-QW; 85520-90; 97116-GP; 97162-GP; 97166-GO; 97530-GP; 97535-GO; C1713; G8978-GP-CJ; G8979-GP-CI; G8980-GP-CI; G8987-GO-CK; G8988-GO-CJ; J0171; J0690; J1170; J1265; J1644; J1650; J1815; J2212; J2250; J2370; J2405; J2704; J3010; P9016; P9041; Q9967

== ENCOUNTER 2016-11-18 10:53 | Inpatient (IN) | payer OTHER, MEDICARE ==
[2016-11-18] MEDS ORDERED: HYDROmorphONE/DILAUDID 1 MG/ML INJ IVP ONE (11:27)
--- NOTE | 2016-11-18 11:32 | EDPHY ---
HPI/HX/ROS/PE/MDM Narrative: CHIEF COMPLAINT: Back pain HPI: This is a 71 y/o female with a history of lumbar stenosis and multilevel spinal fusions complaining of severe back pain 10 days post spinal surgery by Dr. Kaba. It sounds like her surgery had some complications including necessity of a blood transfusion, postoperative constipation, and right upper extremity venous thromboembolism and PE that required anticoagulation on discharge. She just transitioned to Coumadin and is taking this regularly. She felt she was recovering well at home, but her lumbar back pain spiked to a 9/10 in severity Tuesday night and has not relented. After a prior fusion, she developed severe pain and a CT showed hemorrhage that required intervention and her pain today feels exactly the same. She has associated pain in her right hip and groin that is worse with movement and palpation. She denies weakness or numbness in her legs, saddles anesthesias, incontinence, chest pain, or dyspnea. REVIEW OF SYSTEMS: Aside from elements discussed in the HPI, a comprehensive 10-point review of systems was reviewed and is negative. PMH: Lumbar stenosis, multilevel spinal fusions, postsurgical DVT and PE Prior medical records reviewed including admission 11/08/16 for spinal fusion and venous thromboembolism. SOCIAL HISTORY: Daughter and at bedside. PHYSICAL EXAM: General:Patient is alert, in no acute distress. ENT:Eyes are normal to inspection. ENT inspection normal. Neck: Normal inspection. Full range of motion. Respiratory:No respiratory distress. Breath sounds normal bilaterally. Cardiovascular: Regular rate and rhythm. Strong peripheral pulses. Normal cap refill. Abdomen:The abdomen is nontender to palpation. There are no peritoneal signs. Back: Clean, intact, healing vertical surgical incision overlying spine. No signs of infection. Skin: Normal color. No rash. Warm and dry. Extremities: Normal appearance. Full range of motion. Neuro: Oriented x3. Normal motor function. Normal sensory function. ED Course: This is a 71 y/o female with a history of a recent spinal fusion complaining of acutely worsening pain 2 days ago that feels similar to prior post-surgical hemorrhage after a prior spinal fusion. She has a clean and well-healing midline spinal incision on exam. Plan for neurosurgery consult and symptom management. 1mg IV Dilaudid administered. 1130: Consulted with neurosurgery. They recommend lumbar and thoracic MRIs. Neurosurgery reviewed MRI and assessed patient in the ED. They plan to admit her. The do not believe there is an acute hemorrhage at this time. They have requested medicine consult. 1326: Spoke with Dr. Suazo, hospitalist. He will consult on patient. - Data Points Imaging Results: Imaging Impressions Thoracic Spine MRI 11/18/16 11:30 Impression: Interval diskectomy and fusion T10-T11 with interval improvement of the spinal canal encroachment. Continued protrusions at T10-T11 and T11-T12 with moderate central spinal canal narrowing, stable in appearance. Results called and discussed with Cruz Vo MD at 1316 hours 18 November 2016. Imaging: Discussed imaging studies w/ orthopedically impaired teacher Radiologist, I viewed and interpreted images myself Laboratory Results: Laboratory Results 11/18/16 11:17 11/18/16 11:17 11/18/16 11/18/16 11/18/16 11:17 11:17 11:17 WBC 12.65 10^3/uL H 10^3/uL (3.80-9.50) RBC 3.37 10^6/uL L 10^6/uL (4.18-5.33) Hgb 10.6 g/dL L g/dL (12.6-16.3) Hct 32.1 % L % (38.0-47.0) MCV 95.3 fL fL (81.5-99.8) MCH 31.5 pg pg (27.9-34.1) MCHC 33.0 g/dL g/dL (32.4-36.7) RDW 14.4 % % (11.5-15.2) Plt Count 537 10^3/uL H 10^3/uL (150-400) MPV 9.3 fL fL (8.7-11.7) Neut % (Auto) 68.0 % % (39.3-74.2) Lymph % (Auto) 17.9 % % (15.0-45.0) Moffat % (Auto) 10.4 % % (4.5-13.0) Eos % (Auto) 1.8 % % (0.6-7.6) Baso % (Auto) 0.3 % % (0.3-1.7) Nucleat RBC Rel Count 0.2 % % (0.0-0.2) Absolute Neuts (auto) 8.60 10^3/uL H 10^3/uL (1.70-6.50) Absolute Lymphs (auto) 2.27 10^3/uL 10^3/uL (1.00-3.00) Absolute Monos (auto) 1.31 10^3/uL H 10^3/uL (0.30-0.80) Absolute Eos (auto) 0.23 10^3/uL 10^3/uL (0.03-0.40) Absolute Basos (auto) 0.04 10^3/uL 10^3/uL (0.02-0.10) Absolute Nucleated RBC 0.02 10^3/uL H 10^3/uL (0-0.01) Immature Gran % 1.6 % H % (0.0-1.1) Immature Gran # 0.20 10^3/uL H 10^3/uL (0.00-0.10) PT 18.0 SEC H SEC (12.0-15.0) INR 1.49 H (0.83-1.16) APTT 39.9 SEC H SEC (23.0-38.0) Sodium 129 mEq/L L mEq/L (134-144) Potassium 4.7 mEq/L mEq/L (3.5-5.2) Chloride 94 mEq/L L mEq/L (97-110) Carbon Dioxide 22 mEq/l mEq/l (22-31) Anion Gap 13 mEq/L mEq/L (8-16) BUN 13 mg/dL mg/dL (7-23) Creatinine 0.9 mg/dL mg/dL (0.6-1.0) Estimated GFR > 60 Glucose 92 mg/dL mg/dL (70-100) Calcium 9.4 mg/dL mg/dL (8.5-10.4) Medications Given: Discontinued Medications Hydromorphone HCl (Dilaudid) 1 mg IVP EDNOW ONE Stop: 11/18/16 11:28 Last Admin: 11/18/16 11:36 Dose: 1 mg General Time Seen by Provider: 11/18/16 10:59 Initial Vital Signs: Initial Vital Signs Temperature (C) 36.6 C 11/18/16 11:01 Heart Rate 71 11/18/16 11:01 Respiratory Rate 16 11/18/16 11:01 Blood Pressure 135/74 H 11/18/16 11:01 O2 Sat (%) 98 11/18/16 11:01 O2 Delivery Mode Room Air Allergies/Adverse Reactions: Sulfa (Sulfonamide Antibiotics) Allergy (Mild, Verified 04/02/14 13:47) Hives Home Medications: Medication Instructions Recorded Albuterol [Proventil Inhaler HFA 2 puffs IH DAILY PRN 05/31/11 (*)] Levothyroxine [Synthroid 150 mcg 150 mcg PO MOTUWETHFR@05/31/11 (*)] Methylcellulose [Citrucel] 4 cap PO DAILY 05/31/11 Levothyroxine Sodium 75 mcg PO SA@03/24/13 Omeprazole 20 mg PO BID PRN 12/20/13 Simvastatin [Zocor 20 mg] 20 mg PO HS 12/20/13 Zolpidem Tartrate [Ambien 5MG (*)] 2.5 mg PO HS PRN 12/20/13 Azelastine HCl [Astepro] 1 spray NS DAILY PRN 03/13/14 Gabapentin [Neurontin 300 MG (*)] 600 mg PO BID 04/02/14 Acetaminophen [Tylenol 325mg (*)] 325 mg PO DAILY PRN 10/07/16 Ascorbic Acid [Vitamin C 500 mg 1,000 mg PO BID 10/07/16 (*)] FLUoxetine [Prozac 20 MG (*)] 20 mg PO DAILY 10/07/16 Spironolactone [Aldactone] 50 mg PO DAILY 10/07/16 amLODIPine BESYLATE [Norvasc 5 mg 5 mg PO DAILY 10/07/16 (*)] Acetaminophen [Tylenol ES 500 mg 1,000 mg PO Q8HRS tab 11/15/16 (*)] Cyclobenzaprine [Flexeril 10 MG 10 mg PO HS PRN #30 tab 11/15/16 (*)] Methocarbamol [Robaxin 750 mg (*)] 750 mg PO BID PRN #60 tab 11/15/16 Sennosides/Docusate Sodium 1 - 2 tab PO BID tab 11/15/16 [Senokot-S] Warfarin Sodium 3 mg PO DAILY #30 tablet 11/15/16 morphINE SR [Ms Contin/Oramorph 15 15 mg PO BID #30 tab 11/15/16 mg (*)] oxyCODONE IR [Oxycodone Ir (*)] 5 - 10 mg PO Q4HRS PRN #60 tab 11/15/16 Warfarin Sodium 11/18/16 Departure - Departure Disposition: [facility] Inpatient Acute Clinical Impression: Postoperative back pain Condition: Fair Referrals: Rossy Velasquez MD [Primary Care Provider] - As per Instructions Report Scribed for: Cruz Vo Report Scribed by: Susy Toro Date of Report: 11/18/16 Time of Report: 11:31 Physician Review and Approval Statement: Portions of this note were transcribed by an ED scribe. I personally performed the history, physical exam, and medical decision making; and confirm the accuracy of the information in the transcribed note.
[2016-11-18 11:35] LABS: % IMMATURE GRANULYOCYTES 1.6 % (0.0-1.1); ABSOLUTE NRBC COUNT 0.02 10^3/uL (0-0.01); ADD DIFF? NO; ADD MORPH? NO; ADD SCAN? NO; ATYPICAL LYMPHOCYTE FLAG 50 (0-99); FRAGMENT RBC FLAG 0 (0-99); HEMATOCRIT 32.1 % (38.0-47.0); HEMOGLOBIN 10.6 g/dL (12.6-16.3); LEFT SHIFT FLG 10 (0-99); LIPEMIA HEMOLYSIS FLAG 80 (0-99); MEAN CELL HEMOGLOBIN 31.5 pg (27.9-34.1); MEAN CELL VOLUME 95.3 fL (81.5-99.8); MEAN PLATELET VOLUME 9.3 fL (8.7-11.7); NRBC-AUTO% 0.2 % (0.0-0.2); PLATELET CLUMPS FLAG 0 (0-99); PLATELET COUNT 537 10^3/uL (150-400); RED BLOOD CELL COUNT 3.37 10^6/uL (4.18-5.33); RED CELL DISTRIBUTION WIDTH 14.4 % (11.5-15.2)
[2016-11-18 11:45] LABS: INR 1.49 (0.83-1.16)
[2016-11-18 11:46] LABS: APTT 39.9 SEC (23.0-38.0)
[2016-11-18 11:54] LABS: ANION GAP 13 mEq/L (8-16); CALCIUM 9.4 mg/dL (8.5-10.4); CARBON DIOXIDE 22 mEq/l (22-31); CHLORIDE 94 mEq/L (97-110); CREATININE 0.9 mg/dL (0.6-1.0); GLOMERULAR FILTRATION RATE > 60; GLUCOSE 92 mg/dL (70-100); POTASSIUM 4.7 mEq/L (3.5-5.2); SODIUM 129 mEq/L (134-144)
[2016-11-18] MEDS ORDERED: IOPAMIDOL (ISOVUE-300) 100 ML BTL ONE (13:06)
[2016-11-18] MEDS ORDERED: ACETAMINOPHEN 325 MG TAB PO PRN (13:22)
[2016-11-18] MEDS ORDERED: NALOXONE HCL 0.4 MG/ML INJ IVP PRN (13:22)
[2016-11-18] MEDS ORDERED: HYDROmorphONE/DILAUDID 6 MG/30 ML PCA IV PRN (13:22)
[2016-11-18] MEDS ORDERED: ONDANSETRON 4 MG/2 ML VIAL IVP PRN (13:22)
[2016-11-18] MEDS ORDERED: BISACODYL 10 MG SUPP PR PRN (13:22)
[2016-11-18] MEDS ORDERED: LACTULOSE 20 GM/30 ML UDCUP PO PRN (13:22)
[2016-11-18] MEDS ORDERED: ONDANSETRON DISINTEGRATING 4 MG TAB PO PRN (13:22)
[2016-11-18] MEDS ORDERED: HYDROCODONE/APAP 5/325 TAB PO PRN (13:22)
[2016-11-18] MEDS ORDERED: diphenhydrAMINE 25 MG CAP PO PRN (13:22)
[2016-11-18] MEDS ORDERED: AZELASTINE HCL NS PRN (14:48)
[2016-11-18] MEDS ORDERED: METHOCARBAMOL 750 MG TAB PO ONE (14:48)
[2016-11-18] MEDS ORDERED: ACETAMINOPHEN 500 MG TAB PO ONE (14:48)
[2016-11-18] MEDS ORDERED: NON-FORMULARY NEW DRUG (Omeprazole [Omeprazole] 20 MG) PO PRN (14:48)
[2016-11-18] MEDS: oxyCODONE IR 5 MG TAB PO PRN ×3 (14:50→21:45)
[2016-11-18] MEDS ORDERED: ALBUTEROL 200 PUFFS/18 GM MDI IH PRN (15:15)
--- NOTE | 2016-11-18 15:27 | GHP ---
[f rep st] HISTORY AND PHYSICAL DATE OF ADMISSION: 11/18/2016 Patient seen in the Emergency Department at [facility] in room 4 at 12:30 p.m. on 11/18/2016. CHIEF COMPLAINT: Worsening back pain. HISTORY OF PRESENT ILLNESS: Margie is a 71-year-old female with a history of lumbar stenosis and mult ilevel spinal fusions, who is complaining of severe back pain. She is 10 days status post spinal vladimir jose armando with Dr. Cristian Kaba. Her surgery was complicated and necessitated some blood products, and she also had some issues with postoperative constipation and right upper extremity venous thromboembolism . She also had a PE that required anticoagulation on discharge. She was transitioned to Coumadin an d had been taking this regularly. She has not had any fall injury or trauma. She was recovering wel l at home, but her back pain had started to spike and is a 9/10 to 10/10 in severity over the last fe w days. It was unrelenting. After a prior fusion, she had developed severe pain that showed a posto perative seroma that required intervention with Interventional Radiology to drain this fluid collecti on. She has some associated hip pain. She also has some right lower quadrant pain and right flank p ain. The patient will be seen by Internal Medicine, as well. She denies any weakness in her legs. No numbness or tingling. She has a little bit of pain in her thigh, but other than that, her main co mplaint is back pain. She has no saddle anesthesia and no incontinence. REVIEW OF SYSTEMS: Complete review of systems noted in conjunction with the above. A 10-point revie w otherwise reviewed and is negative except noted in HPI. PAST MEDICAL HISTORY: Significant for the followin. Lumbar stenosis. 2. Multilevel spinal fusions. 3. Postsurgical DVT and PE. MEDICATIONS: Please see med rec form. ALLERGIES: Sulfa. PAST SURGICAL HISTORY: As noted above. FAMILY HISTORY: Reviewed and noncontributory. SOCIAL HISTORY: The patient is and lives in [place]. Her daughter works here at [facility] as a nurse. IMMUNIZATIONS: Reported up to date. TRAVEL: No recent travel. PHYSICAL EXAMINATION: GENERAL: This is an awake, alert, oriented female in no acute distress. She has a GCS of 15. VITAL SIGNS: (Most recent) blood pressure 141/68, heart rate 70, respiratory rate of 18, 96% on room air, temperature 36.8. HEENT: Head is normocephalic/atraumatic. Pupils are equal, round, and reactive to light. EOMIs int act. Full visual [place] by confrontation. Ears are patent. Nose is patent. NECK: Soft and supple. No midline tenderness. Full range of motion in flexion, extension, lateral bending, and rotation. RESPIRATORY: Deferred. CARDIAC: Deferred. ABDOMEN: Soft, nontender. No peritoneal signs. : Deferred. RECTAL: Deferred. NEURO: Patient is awake, alert, and oriented to name, place, location, date, time, and situation. M katherine is intact to immediate, past, and current events. Speech with no aphasia, dysarthria, or dysph onia. Cranial nerves 2 through 12 are grossly intact. Motor: Patient has 5/5 strength in all muscl e groups of the bilateral upper and lower extremities, to include deltoids, biceps, triceps, brachior adialis, wrist flexors and extensors, sewing machine operator plastic zipper, intrinsic fingers, iliopsoas, quadriceps, hamstring, plan tar flexion, dorsiflexion, and EHL testing. Sensation is grossly intact to light touch throughout al l dermatome distributions of upper and lower extremities. Negative straight leg raise. Negative WILMA ER test. SKIN: Incision is clean, dry, and intact. There are no sign of infection. No redness, erythema, or discharge, and no palpable fluctuance. MEDICAL DECISION MAKING/DIAGNOSTIC STUDIES: Laboratory tests obtained 11/18/2016 shows a white count of 12.65 with an H and H of 10.6 and 32.1, with platelet count of 537. Coags on 11/18/2016 shows a PT of 18.0, INR of 1.49, and a PTT of 39.9. 11/18/2016 sodium 129, potassium 4.7, chloride 94, CO2 2 2, BUN 13, creatinine 0.9, and glucose 92. Diagnostic studies: Thoracic spine MRI obtained shows interval discectomy and fusion at T10-11 with interval improvement in spinal canal encroachment, continued protrusions at T10-11 and T11-12, with m oderate central spinal canal narrowing that is stable in appearance. Pending MRI of the lumbar spine. Abdominal CT obtained 11/18/2016 shows previous fusion T10-11 as well as L1-S1. No acute abnormality seen in the thoracolumbar spine. Moderate constipation, distended stomach and gastroesophageal refl ux suspected. IMPRESSION: 1. Postoperative back pain, status post thoracic and thoracolumbar fusion, with interval progression of stenosis T10-11 and T11-12. 2. History of constipation. 3. History of pulmonary embolism and deep vein thrombosis. 4. Multiple medical conditions. PLAN AND DISCUSSION: The patient is a 71-year-old female, who was seen evaluated both by me and Dr. Kaba in the emergency department in room 4 at 12:30 p.m. on 11/18/2016. She was evaluated. She gonzalez s significant back pain, right flank pain, and right abdominal pain. Dr. Vo will consult with internal medicine; to have them come see her as well. They will work with her regarding her Coumadin and transitioning off, as the patient will likely need a tie-in fusion procedure from T10-11 down in to the thoracolumbar construct. She has some interval progression of stenosis between the construct. Orders were written. She will be admitted to the neurosurgical service. We talked about worsening symptoms. Family was updated and images were reviewed, as well. /[id number]/MODL
--- NOTE | 2016-11-18 17:28 | GCON ---
[f rep st] CONSULTATION MEDICINE CONSULTATION. DATE OF CONSULTATION: 11/18/2016 This is a medicine consultation at the request of Dr. Cristian Kaba for evaluation and management of PE. HISTORY: This is a 71-year-old female who has a past medical history of a fairly recent spinal fusio n L4-S1, who initially had been doing well after surgery but in the last few days having significantl y increased pain. She notes it is similar to the pain she had in the preop setting but worse. Pain is present in her right lower abdomen as well as her mid to low back. She does not have any associat ed weakness. She has not had any bowel or bladder incontinence. She does have severe constipation a nd since surgery on November 08 she has only had 1 bowel movement. This is despite taking a large amou nt of medications at home. She has not had any fevers or chills. She does have some numbness in the cici-incisional area on her back that Neurosurgery has been aware of and believes will resolve with time. She also had a recently diagnosed PE after having a line associated upper extremity deep vein thrombosis. She has been on both Lovenox and Coumadin but recently was discontinued on Lovenox as he r INR was therapeutic. She notes that yesterday her INR was 2.2. PAST MEDICAL HISTORY: 1. Line-related DVT and small PE. 2. Hypothyroidism. 3. Reactive airway disease. 4. Spondylolisthesis with radiculopathy. 5. Depression. PAST SURGICAL HISTORY: Includes: 1. L4-S1 fusion. 2. ACD for C4 through C6. 3. Left knee surgery. FAMILY HISTORY: Reviewed and unremarkable. SOCIAL HISTORY: Patient is . She is accompanied here by her and daughter. She has a remote tobacco use history. She does not use much in the way of alcohol and no drug use. HOME MEDICATIONS: 1. Vitamin C. 2. Albuterol. 3. Tylenol. 4. Senna. 5. Omeprazole. 6. Methylcellulose. 7. Robaxin. 8. Levothyroxine. 9. Gabapentin. 10. Fluoxetine. 11. Flexeril. 12. Astepro. 13. Simvastatin. 14. Oxycodone. 15. MS Contin. 16. Amlodipine. 17. Zolpidem. 18. Warfarin. 19. Aldactone. ALLERGIES: Include sulfa. PHYSICAL EXAMINATION: VITAL SIGNS: BP 129/67, heart rate 68, respiratory rate 16, O2 sats 95% on ro om air. Temperature is 36.7. GENERAL APPEARANCE: This is a well-developed/well-nourished female. She is awake and alert. She is in no acute distress. EYES: Anicteric. HENT: Oropharynx clear. C ARDIOVASCULAR: RRR. No MRG. PULMONARY: CTA bilaterally. Normal work of breathing. BACK: Midline spinal incision is well healed and approximated without any surrounding erythema. ABDOMEN: Soft, n ontender, nondistended. EXTREMITIES: No clubbing, cyanosis, or edema. SKIN: Warm, dry, well perfu sed. NEURO/PSYCH: Oriented and appropriate. Strength and sensation are intact. CLINICAL DATA: Labs reviewed, significant for white blood cell count 12.65, hematocrit 32, platelets of 537, INR is 1.49, sodium of 129. Abdominal CT, personally reviewed and interpreted, shows significant constipation; otherwise, no acut e findings. Thoracic and lumbar spine MRI show postoperative changes, improvement of the spinal canal encroachmen t at T10 through T11 and also improved central spinal canal narrowing in the lumbar region. Otherwis e, no new findings. ASSESSMENT/PLAN: 71-year-old female with a recent lumbosacral fusion surgery presenting with recurre nt severe back pain. 1. Severe back pain. Query if this is related to underlying relatively severe constipation. She gonzalez s had essentially 1 bowel movement in nearly 2 weeks. This is despite taking senna, MiraLAX and Magn esium citrate at home. We will start a bowel protocol and if this is not successful will provide GoL YTELY. We will continue her pain regimen as per Neurosurgery. 2. Constipation as per above. Suspect this is playing a large role in her presentation related to n ew narcotic use which she states she is very sensitive to. 3. PE/DVT. Patient with a small PE following a small line associated DVT. She has been on both Love nox and Coumadin, recently discontinued on Lovenox with a therapeutic INR yesterday of 2.2. Today he r INR is only 1.5 and it sounds like she did have some changes perhaps inadvertently made in her Coum jasson dose. It sounds like she went from 3 mg b.i.d. to 3 mg daily. We will ask pharmacy to manage h er Coumadin and will also resume bridge with Lovenox for the time being. 4. Hyponatremia. This is a recurrent issue for her. I suspect she has some underlying SIADH perhap s driven by pain. Will check urine sodium and osmolality and follow while inhouse. I do not suspect this is contributing to her current presentation however. 5. Reactive airways disease without any evidence of acute exacerbation. Will continue to monitor. DISPOSITION: This will be per neurosurgical service. Medicine will continue to follow while she is in-house. Once pain is controlled and constipation addressed, I do not see any strong indication robin t she needs to remain in the hospital from a medical standpoint. Patient is new to my care. Old records reviewed and summarized as per HPI and past medical history. Care plan reviewed with patient's family, daughter and present at bedside. /[id number]/MODL
[2016-11-18] MEDS: POLYETHYLENE GLYCOL 3350 17 GM PKT PO SCH ×2 (17:33→21:32)
[2016-11-18] MEDS: ENOXAPARIN 80 MG/0.8 ML SYR SC SCH (17:33)
[2016-11-18] MEDS ORDERED: NON-FORMULARY NEW DRUG (Simvastatin [Zocor 20 Mg] 20 MG) PO SCH (21:00)
[2016-11-18] MEDS: ASCORBIC ACID 500 MG TAB PO SCH (21:28)
[2016-11-18] MEDS: ATORVASTATIN CALCIUM 10 MG TAB PO SCH (21:29)
[2016-11-18] MEDS: morphINE SR 15 MG TAB PO SCH (21:30)
[2016-11-18] MEDS: GABAPENTIN 300 MG CAP PO SCH (21:30)
[2016-11-18] MEDS: SENNOSIDES/DOCUSATE SODIUM TAB PO SCH (21:32)
[2016-11-18] MEDS: SPIRONOLACTONE 25 MG TAB PO SCH (21:32)
[2016-11-18] MEDS: CYCLOBENZAPRINE 10 MG TAB PO PRN (21:45)
[2016-11-18] MEDS: ZOLPIDEM TARTRATE 5 MG TAB PO PRN (21:46)
[2016-11-18] MEDS ORDERED: HEPARIN 5,000 UNIT/0.5 ML SYR SC SCH (22:00)
[2016-11-19 04:58] LABS: % IMMATURE GRANULYOCYTES 1.5 % (0.0-1.1); ABSOLUTE IMMATURE GRANULOCYTES 0.14 10^3/uL (0.00-0.10); ADD DIFF? NO; ADD MORPH? NO; ADD SCAN? NO; ATYPICAL LYMPHOCYTE FLAG 60 (0-99); FRAGMENT RBC FLAG 0 (0-99); HEMATOCRIT 29.2 % (38.0-47.0); HEMOGLOBIN 9.9 g/dL (12.6-16.3); LEFT SHIFT FLG 10 (0-99); LIPEMIA HEMOLYSIS FLAG 90 (0-99); MEAN CELL HEMOGLOBIN 32.5 pg (27.9-34.1); MEAN CELL HEMOGLOBIN CONCENTR. 33.9 g/dL (32.4-36.7); MEAN CELL VOLUME 95.7 fL (81.5-99.8); MEAN PLATELET VOLUME 9.5 fL (8.7-11.7); PLATELET CLUMPS FLAG 0 (0-99); PLATELET COUNT 492 10^3/uL (150-400); RED BLOOD CELL COUNT 3.05 10^6/uL (4.18-5.33); RED CELL DISTRIBUTION WIDTH 14.4 % (11.5-15.2)
[2016-11-19 05:31] LABS: ANION GAP 9 mEq/L (8-16); CALCIUM 9.2 mg/dL (8.5-10.4); CARBON DIOXIDE 25 mEq/l (22-31); CHLORIDE 97 mEq/L (97-110); CREATININE 0.9 mg/dL (0.6-1.0); GLOMERULAR FILTRATION RATE > 60; GLUCOSE 92 mg/dL (70-100); POTASSIUM 4.9 mEq/L (3.5-5.2); SODIUM 131 mEq/L (134-144)
[2016-11-19] MEDS: oxyCODONE IR 5 MG TAB PO PRN ×5 (05:46→21:46)
[2016-11-19] MEDS: LEVOTHYROXINE 150 MCG TAB PO SCH (05:46)
[2016-11-19] MEDS: ENOXAPARIN 80 MG/0.8 ML SYR SC SCH ×2 (05:47→16:39)
[2016-11-19] MEDS: HYDROmorphONE/DILAUDID 1 MG/ML INJ IVP PRN ×4 (08:04→22:59)
[2016-11-19] MEDS: SENNOSIDES/DOCUSATE SODIUM TAB PO SCH ×2 (08:08→21:46)
[2016-11-19] MEDS: morphINE SR 15 MG TAB PO SCH ×2 (08:08→21:45)
[2016-11-19] MEDS: FLUoxetine 20 MG CAP PO SCH (08:09)
[2016-11-19] MEDS: amLODIPine BESYLATE 5 MG TAB PO SCH (08:09)
[2016-11-19] MEDS: GABAPENTIN 300 MG CAP PO SCH ×2 (08:09→21:46)
[2016-11-19] MEDS: ASCORBIC ACID 500 MG TAB PO SCH ×2 (08:10→21:45)
[2016-11-19] MEDS: POLYETHYLENE GLYCOL 3350 17 GM PKT PO SCH ×3 (08:10→21:48)
[2016-11-19] MEDS: METHOCARBAMOL 750 MG TAB PO PRN (08:16)
[2016-11-19] MEDS ORDERED: METHYLCELLULOSE PO SCH (09:00)
--- NOTE | 2016-11-19 09:24 | NEUSURGPN ---
Assessment/Plan: 71 yo female with progressive controlled back pain status post T10/11 fusion and L1-S1 tie in fusion on 11/08/16 New MRI T/L spine reviewed by Dr. Kaba: worsening stenosis above L1 at the T12 /L1 junction - recommend surgery for revision on Tuesday11/22/[address]aba, T10 to S1 fusion with laminectomy at T12/L1 - appreciate medicine following - hold coumadin due to upcoming surgery - plan to stop lovenox after morning dose on tuesday - pain control Discussed with Dr. Kaba Subjective: Sitting in bedside chair. Pain at a level of 4-5/10 Objective: Awake. Alert. PERRL. EOMI Following commands Muscle strength full at 5/5 Sensation intact - Physician Discussed Patient with : [facility] Physical Exam - Vitals, I&O, Labs I and O 11/18/16 11/19/16 11/20/16 05:59 05:59 05:59 Intake Total 350 Output Total 450 Balance -100 Weight 78 kg Intake: Oral (ml) 350 Output: Urine (ml) 450 Toilet 450 Other: Intake Quantity Yes Sufficient Number of Voids Toilet 1 Vital Signs Temp Pulse Resp BP Pulse Ox 36.7 C 75 16 126/59 H 94 11/19/16 04:00 11/19/16 08:00 11/19/16 08:00 11/19/16 08:09 11/19/16 08:00 Laboratory Results 11/19/16 04:15 11/19/16 04:15 ICD10 Worksheet Patient Problems: Problems Problem Status Onset Postoperative back pain Acute Arthrodesis status Acute Asthma exacerbation Acute Cervical radiculitis Acute Low back pain Acute Lumbosacral stenosis Acute Neck pain Acute
--- NOTE | 2016-11-19 11:07 | ASMTCMCOM ---
CM Note CM Note Notes: Pt re-admission for back pain, d/c 11/15/16 w [facility]. Pt reports when she got home HHC was not needed to [facility] did not start services. Pt will have T10 to [id number] w lami at Y12/L1 Tuesday. OT/PT will eval for d/c needs. Pt agreeable to HHC if she needs it. CM to follow. Date Signed: 11/19/2016 11:07 AM Electronically Signed By:SERJIO Paz
[2016-11-19] MEDS ORDERED: PEG 3350/NA SULF,BICARB,CL/KCL (GAVILYTE-G) 4000 ML BTL PO PRN (13:12)
--- NOTE | 2016-11-19 13:12 | HOSPPROG ---
Hospitalist Progress Note Assessment/Plan: 71 yo F s/p recent lumbar fusion surgery presenting with worsening back pain, also with recent PE/DVT # radicular back pain: s/p recent L4-S1 fusion and on repeat imaging noted to have worsening stenosis above L1 with a plan for surgical revision on Tuesday. At this point working on controlling pain with as needed opiate pain medications. Mobility is good with walker. # PE/line associated DVT: recently diagnosed and prior to admit had been on both lovenox/coumadin with INR subtherapeutic on arrival, resumed on lovenox for surgery planned on Tuesday and will hold AC on Tuesday morning. # constipation: still no BM despite bowel regimen both at home and here, patient wants to continue with miralax etc for another few hours and if this does not work will start golytely. # hyponatremia: by labs looks most c/w hypovolemic hyponatremia, has been improving, will give a small amount of fluid overnight, she does note that she has had less appetite recently and is not taking as much in as usual # anemia: stable, monitoring, no indication for transfusion # RAD: without e/o acute exacerbation # dispo: IP status Subjective: no significant overnight events, patient currently feeling a bit better but pain medication is wearing off before she can get more meds, she is walking well with a walker Objective: Vital Signs Temp Pulse Resp BP Pulse Ox 36.7 C 76 16 120/63 93 11/19/16 04:00 11/19/16 11:47 11/19/16 11:47 11/19/16 11:47 11/19/16 11:47 Laboratory Results 11/19/16 04:15 11/19/16 04:15 11/18/16 11/19/16 11/20/16 05:59 05:59 05:59 Intake Total 350 Output Total 450 Balance -100 PT 18.0 SEC (12.0-15.0) H 11/18/16 11:17 INR 1.49 (0.83-1.16) H 11/18/16 11:17 awake alert nad anicteric op clear rrr no mrg cta brace in place soft nt nd no cce warm dry well perfused ICD10 Worksheet Patient Problems: Problems Problem Status Onset Postoperative back pain Acute Arthrodesis status Acute Asthma exacerbation Acute Cervical radiculitis Acute Low back pain Acute Lumbosacral stenosis Acute Neck pain Acute
[2016-11-19] MEDS: MAGNESIUM HYDROXIDE 30 ML UDCUP PO PRN (15:18)
[2016-11-19] MEDS: SPIRONOLACTONE 25 MG TAB PO SCH (21:46)
[2016-11-19] MEDS: ATORVASTATIN CALCIUM 10 MG TAB PO SCH (21:48)
[2016-11-19] MEDS: ZOLPIDEM TARTRATE 5 MG TAB PO PRN (21:52)
[2016-11-19] MEDS: CYCLOBENZAPRINE 10 MG TAB PO PRN (22:54)
[2016-11-20 05:06] LABS: ANION GAP 8 mEq/L (8-16); CALCIUM 9.2 mg/dL (8.5-10.4); CARBON DIOXIDE 26 mEq/l (22-31); CHLORIDE 95 mEq/L (97-110); CREATININE 0.9 mg/dL (0.6-1.0); GLOMERULAR FILTRATION RATE > 60; GLUCOSE 90 mg/dL (70-100); POTASSIUM 4.7 mEq/L (3.5-5.2); SODIUM 129 mEq/L (134-144)
[2016-11-20] MEDS: ENOXAPARIN 80 MG/0.8 ML SYR SC SCH ×2 (06:26→16:49)
[2016-11-20] MEDS: LEVOTHYROXINE 150 MCG TAB PO SCH ×2 (06:26→06:29)
[2016-11-20] MEDS: METHOCARBAMOL 750 MG TAB PO PRN ×2 (06:29→12:51)
[2016-11-20] MEDS: oxyCODONE IR 5 MG TAB PO PRN ×4 (06:30→18:54)
--- NOTE | 2016-11-20 07:00 | SOAPPROG ---
SOAP Progress Note Assessment/Plan: Assessment: 71 yo F with back pain and leg pain that is likely related to DJD at T11/12, T12/L1 Plan: stable plan for surgery on tuesday to T10-S1 PT/OT please call with neuro changes discussed with Dr Wood 11/20/16 06:58 Subjective: continued back pain, leg pain with walking. no weakness. Objective: Vital Signs Temp Pulse Resp BP Pulse Ox 36.6 C 67 18 122/60 H 93 11/20/16 04:00 11/20/16 04:00 11/20/16 04:00 11/20/16 04:00 11/20/16 04:00 Laboratory Results 11/19/16 04:15 11/20/16 04:11 11/19/16 11/20/16 11/21/16 05:59 05:59 05:59 Intake Total 350 400 Output Total 450 800 Balance -100 -400 PT 18.0 SEC (12.0-15.0) H 11/18/16 11:17 INR 1.49 (0.83-1.16) H 11/18/16 11:17 AAOx4, +FC PERRL, EOMI, no facial droop 5/5 + light touch ICD10 Worksheet Patient Problems: Problems Problem Status Onset Postoperative back pain Acute Arthrodesis status Acute Asthma exacerbation Acute Cervical radiculitis Acute Low back pain Acute Lumbosacral stenosis Acute Neck pain Acute
[2016-11-20] MEDS: HYDROmorphONE/DILAUDID 1 MG/ML INJ IVP PRN ×3 (07:24→21:37)
[2016-11-20] MEDS: POLYETHYLENE GLYCOL 3350 17 GM PKT PO SCH ×3 (08:45→21:37)
[2016-11-20] MEDS: GABAPENTIN 300 MG CAP PO SCH ×2 (08:46→20:02)
[2016-11-20] MEDS: morphINE SR 15 MG TAB PO SCH ×2 (08:46→20:04)
[2016-11-20] MEDS: SENNOSIDES/DOCUSATE SODIUM TAB PO SCH ×2 (08:47→20:03)
[2016-11-20] MEDS: ASCORBIC ACID 500 MG TAB PO SCH ×2 (08:47→20:03)
[2016-11-20] MEDS: FLUoxetine 20 MG CAP PO SCH (08:47)
[2016-11-20] MEDS: amLODIPine BESYLATE 5 MG TAB PO SCH (08:47)
[2016-11-20] MEDS: PANTOPRAZOLE SODIUM 40 MG TAB PO PRN (16:04)
[2016-11-20] MEDS: SPIRONOLACTONE 25 MG TAB PO SCH (20:03)
[2016-11-20] MEDS: CYCLOBENZAPRINE 10 MG TAB PO PRN (20:04)
[2016-11-20] MEDS: ATORVASTATIN CALCIUM 10 MG TAB PO SCH (20:04)
[2016-11-20] MEDS: ZOLPIDEM TARTRATE 5 MG TAB PO PRN (21:37)
[2016-11-21] MEDS: ENOXAPARIN 80 MG/0.8 ML SYR SC SCH (05:03)
[2016-11-21] MEDS: METHOCARBAMOL 750 MG TAB PO PRN ×3 (05:03→14:30)
[2016-11-21] MEDS: oxyCODONE IR 5 MG TAB PO PRN ×6 (05:03→20:50)
[2016-11-21] MEDS: HYDROmorphONE/DILAUDID 1 MG/ML INJ IVP PRN ×3 (05:46→22:37)
[2016-11-21] MEDS: ASCORBIC ACID 500 MG TAB PO SCH ×2 (08:33→20:49)
[2016-11-21] MEDS: GABAPENTIN 300 MG CAP PO SCH ×2 (08:33→20:49)
[2016-11-21] MEDS: FLUoxetine 20 MG CAP PO SCH (08:33)
[2016-11-21] MEDS: amLODIPine BESYLATE 5 MG TAB PO SCH (08:33)
[2016-11-21] MEDS: SENNOSIDES/DOCUSATE SODIUM TAB PO SCH ×2 (08:34→20:49)
[2016-11-21] MEDS: morphINE SR 15 MG TAB PO SCH ×2 (08:34→20:50)
[2016-11-21] MEDS: POLYETHYLENE GLYCOL 3350 17 GM PKT PO SCH ×3 (08:34→21:41)
--- NOTE | 2016-11-21 09:12 | SOAPPROG ---
SOAP Progress Note Assessment/Plan: Assessment: 71 yo F with back pain and leg pain that is likely related to DJD at T11/12, T12/L1 Plan: stable plan for surgery on tuesday to fusion T10-S1 npo after midnight PT/OT please call with neuro changes discussed with Dr Wood 11/20/16 06:58 11/21/16 09:12 Subjective: continued back pain, no leg pain, no weakness. Objective: Vital Signs Temp Pulse Resp BP Pulse Ox 36.6 C 69 16 136/88 H 100 11/21/16 08:00 11/21/16 08:00 11/21/16 08:00 11/21/16 08:00 11/21/16 08:00 Laboratory Results 11/19/16 04:15 11/20/16 04:11 11/20/16 11/21/16 11/22/16 05:59 05:59 05:59 Intake Total 400 400 Output Total 800 Balance -400 400 PT 18.0 SEC (12.0-15.0) H 11/18/16 11:17 INR 1.49 (0.83-1.16) H 11/18/16 11:17 AAOx4, +FC PERRL, EOMI, no facial droop SRINIVASAN x 4 + light touch ICD10 Worksheet Patient Problems: Problems Problem Status Onset Postoperative back pain Acute Arthrodesis status Acute Asthma exacerbation Acute Cervical radiculitis Acute Low back pain Acute Lumbosacral stenosis Acute Neck pain Acute
--- NOTE | 2016-11-21 10:37 | HOSPPROG ---
Hospitalist Progress Note Assessment/Plan: 71 yo F s/p recent lumbar fusion surgery presenting with worsening back pain, also with recent PE/DVT. First encounter, chart reviewed. D/W CM. # radicular back pain: s/p recent L4-S1 fusion and on repeat imaging noted to have worsening stenosis above L1 with a plan for surgical revision on Tuesday. At this point working on controlling pain with as needed opiate pain medications. Mobility is good with walker. # PE/line associated DVT: recently diagnosed and prior to admit had been on both lovenox/coumadin with INR subtherapeutic on arrival, resumed on lovenox for surgery planned on Tuesday and will hold AC on Tuesday morning. # constipation: positive BM # hyponatremia: by labs looks most c/w hypovolemic hyponatremia, has had a history of SIADH requiring salt tablets will start salt tabs in preparation for surgery consider fluid restriction, c/o dry mouth and increase water intake # anemia: stable, monitoring, no indication for transfusion # RAD: without e/o acute exacerbation # dispo: IP status surgery Tuesday Subjective: Up in the chair. Pain controlled with meds. Eager for a shower. Objective: Vital Signs Temp Pulse Resp BP Pulse Ox 36.6 C 69 16 136/88 H 100 11/21/16 08:00 11/21/16 08:00 11/21/16 08:00 11/21/16 08:00 11/21/16 08:00 Laboratory Results 11/19/16 04:15 11/20/16 04:11 11/20/16 11/21/16 11/22/16 05:59 05:59 05:59 Intake Total 400 400 Output Total 800 Balance -400 400 PT 18.0 SEC (12.0-15.0) H 11/18/16 11:17 INR 1.49 (0.83-1.16) H 11/18/16 11:17 - Physical Exam Constitutional: no apparent distress, not in pain, obese Eyes: PERRL, anicteric sclera, EOMI Ears, Nose, Mouth, Throat: moist mucous membranes, hearing normal, ears appear normal Cardiovascular: regular rate and rhythym, No JVD, No edema Respiratory: no respiratory distress, no rales or rhonchi, reduced air movement Gastrointestinal: normoactive bowel sounds, No tenderness, No ascites Skin: warm, normal color, No mottled Musculoskeletal: no joint effusions, pain with ROM, generalized weakness Neurologic: AAOx3 Psychiatric: interacting appropriately, not anxious, not encephalopathic ICD10 Worksheet Patient Problems: Problems Problem Status Onset Asthma exacerbation Acute Cervical radiculitis Acute Neck pain Acute Arthrodesis status Acute Low back pain Acute Lumbosacral stenosis Acute Postoperative back pain Acute
--- NOTE | 2016-11-21 13:59 | ASMTCMCOM ---
CM Note CM Note Notes: Chart reviewed. Surgery tomorrow. Needs TBD. CM will follow. Date Signed: 11/21/2016 01:58 PM Electronically Signed By:Dodie Oliva RN
[2016-11-21] MEDS: SODIUM CHLORIDE 1,000 MG TAB PO SCH (17:39)
[2016-11-21] MEDS: ATORVASTATIN CALCIUM 10 MG TAB PO SCH (20:49)
[2016-11-21] MEDS: CYCLOBENZAPRINE 10 MG TAB PO PRN (20:49)
[2016-11-21] MEDS: SPIRONOLACTONE 25 MG TAB PO SCH (20:50)
[2016-11-21] MEDS: ZOLPIDEM TARTRATE 5 MG TAB PO PRN (22:36)
[2016-11-22 05:00] LABS: ANION GAP 6 mEq/L (8-16); CARBON DIOXIDE 27 mEq/l (22-31); CHLORIDE 97 mEq/L (97-110); CREATININE 0.8 mg/dL (0.6-1.0); GLOMERULAR FILTRATION RATE > 60; GLUCOSE 94 mg/dL (70-100); POTASSIUM 4.5 mEq/L (3.5-5.2); SODIUM 130 mEq/L (134-144)
[2016-11-22] MEDS: LEVOTHYROXINE 150 MCG TAB PO SCH ×2 (06:48→06:54)
[2016-11-22] MEDS: morphINE SR 15 MG TAB PO SCH ×2 (08:08→22:17)
[2016-11-22] MEDS: amLODIPine BESYLATE 5 MG TAB PO SCH ×2 (08:08→08:09)
[2016-11-22] MEDS: HYDROmorphONE/DILAUDID 1 MG/ML INJ IVP PRN ×7 (08:08→22:15)
[2016-11-22] MEDS: SODIUM CHLORIDE 1,000 MG TAB PO SCH ×2 (08:08→21:05)
[2016-11-22] MEDS: POLYETHYLENE GLYCOL 3350 17 GM PKT PO SCH ×3 (08:10→21:07)
[2016-11-22] MEDS: GABAPENTIN 300 MG CAP PO SCH ×2 (08:10→22:17)
[2016-11-22] MEDS: FLUoxetine 20 MG CAP PO SCH (08:10)
[2016-11-22] MEDS: SENNOSIDES/DOCUSATE SODIUM TAB PO SCH ×2 (08:10→22:17)
[2016-11-22] MEDS: ASCORBIC ACID 500 MG TAB PO SCH ×2 (08:10→22:16)
--- NOTE | 2016-11-22 08:28 | PDHPUP ---
History & Physical Update H&P update statement: This history and physical update is based on an assessment of the patient which was completed after admission or registration (within 24 hours), but prior to the surgery/procedure.
--- NOTE | 2016-11-22 08:31 | NEUSURGPN ---
Assessment/Plan: Assessment: 71 yo F with back pain and leg pain that is likely related to DJD at T11/12, T12/L1 Plan: stable Risks, benefits and alternatives to T12/L1 laminectomy, fusion T10-S1, and exploration/revision of hardware discussed with the patient. Consents signed, area marked and questions answered. npo for surgery later today PT/OT please call with neuro changes discussed with Dr Kaba, who will also see the patient today 11/20/16 06:58 Subjective: back pain. Objective: NAD A&Ox3 MAEx4 5/ and equal in BUE and BLE. Incision well healed, clean and intact - Physician Discussed Patient with : [facility] Physical Exam - Vitals, I&O, Labs I and O 11/21/16 11/22/16 11/23/16 05:59 05:59 05:59 Intake Total 400 740 Balance 400 740 Weight 82.3 kg 82.3 kg Intake: Oral (ml) 400 740 Other: Intake Quantity Yes Yes Sufficient Number of Voids Toilet 3 1 Vital Signs Temp Pulse Resp BP Pulse Ox 36.8 C 69 17 129/63 H 100 11/22/16 07:49 11/22/16 07:49 11/22/16 07:49 11/22/16 07:49 11/22/16 07:49 Laboratory Results 11/19/16 04:15 11/22/16 04:30 ICD10 Worksheet Patient Problems: Problems Problem Status Onset Postoperative back pain Acute Arthrodesis status Acute Asthma exacerbation Acute Cervical radiculitis Acute Low back pain Acute Lumbosacral stenosis Acute Neck pain Acute
[2016-11-22] MEDS: oxyCODONE IR 5 MG TAB PO PRN ×2 (09:26→23:11)
[2016-11-22] MEDS: NS 1,000 ML IV SCH ×2 (09:26→20:37)
[2016-11-22] MEDS ORDERED: CHLORHEXIDINE GLUC HIBICLENS 118 ML BTL TP ONE (10:20)
[2016-11-22] MEDS ORDERED: BUPIVACAINE 0.25% 30 ML SDV ONE (10:21)
[2016-11-22] MEDS ORDERED: THROMBIN (BOVINE) 20,000 UNIT VIAL TP ONE (10:21)
[2016-11-22] MEDS ORDERED: BACITRACIN 50,000 UNITS/10 ML SYR IRR ONE (10:21)
[2016-11-22] MEDS: METHOCARBAMOL 750 MG TAB PO PRN (11:03)
[2016-11-22] MEDS ORDERED: ceFAZolin 2 GM/DEXTROSE 100 ML IV ONE (12:29)
--- NOTE | 2016-11-22 12:35 | HOSPPROG ---
Hospitalist Progress Note Assessment/Plan: 71 yo F s/p recent lumbar fusion surgery presenting with worsening back pain, also with recent PE/DVT. # radicular back pain: s/p recent L4-S1 fusion and on repeat imaging noted to have worsening stenosis above L1 with a plan for surgical revision today. At this point working on controlling pain with as needed opiate pain medications. Mobility is good with walker. # PE/line associated DVT: recently diagnosed and prior to admit had been on both lovenox/coumadin with INR subtherapeutic on arrival, resumed on lovenox for surgery planned today. # constipation: positive BM # hyponatremia: has had a history of SIADH requiring salt tablets started salt tabs in preparation for surgery, should cont consider fluid restriction, c/o dry mouth and increase water intake # anemia: stable, monitoring, no indication for transfusion # RAD: without e/o acute exacerbation # dispo: IP status surgery today Subjective: Still having pain. Waiting for surgery. No other specific issues. Objective: Vital Signs Temp Pulse Resp BP Pulse Ox 36.6 C 70 16 121/69 H 100 11/22/16 11:30 11/22/16 11:30 11/22/16 11:30 11/22/16 11:30 11/22/16 11:30 Laboratory Results 11/19/16 04:15 11/22/16 04:30 11/21/16 11/22/16 11/23/16 05:59 05:59 05:59 Intake Total 400 740 Balance 400 740 PT 18.0 SEC (12.0-15.0) H 11/18/16 11:17 INR 1.49 (0.83-1.16) H 11/18/16 11:17 - Physical Exam Constitutional: appears nourished, uncomfortable Eyes: PERRL, anicteric sclera Ears, Nose, Mouth, Throat: moist mucous membranes, hearing normal Cardiovascular: No JVD, No edema Respiratory: no respiratory distress, reduced air movement Gastrointestinal: No tenderness, No ascites Skin: warm, normal color, No mottled Musculoskeletal: pain with ROM, generalized weakness Neurologic: AAOx3 Psychiatric: not anxious, not encephalopathic, thought process linear ICD10 Worksheet Patient Problems: Problems Problem Status Onset Asthma exacerbation Acute Cervical radiculitis Acute Neck pain Acute Arthrodesis status Acute Low back pain Acute Lumbosacral stenosis Acute Postoperative back pain Acute
--- NOTE | 2016-11-22 13:29 | PDANEPAE ---
ANE History of Present Illness T10 S1 fusion ANE Past Medical History - Cardiovascular History Hx Hypertension: Yes Hx Arrhythmias: No Hx Chest Pain: No Hx Coronary Artery / Peripheral Vascular Disease: No Hx CHF / Valvular Disease: No Hx Palpitations: No - Pulmonary History Hx COPD: No Hx Asthma/Reactive Airway Disease: Yes Hx Recent Upper Respiratory Infection: No Hx Oxygen in Use at Home: No Hx Sleep Apnea: No Sleep Apnea Screening Result - Last Documented: Negative Pulmonary History Comment: Asthma-inhalers. Pnuemonia-03/23, resolved. - Neurologic History Hx Cerebrovascular Accident: No Hx Seizures: No Hx Dementia: No Neurologic History Comment: Several lower back epidural inj. - Endocrine History Hx Diabetes: No Endocrine History Comment: Hypothyroid-med. - Renal History Hx Renal Disorders: No Renal History Comment: HX of hyponatremia, being worked up.Post cervical fusion Jan 2014 - Liver History Hx Hepatic Disorders: No - Neurological & Psychiatric Hx Hx Neurological and Psychiatric Disorders: Yes Neurological / Psychiatric History Comment: Depression-med - Cancer History Hx Cancer: No - Congenital Disorder History Hx Congenital Disorders: Yes Congenital History Comment: Spinal canal stenosis. - GI History Hx Gastrointestinal Disorders: Yes Gastrointestinal History Comment: OCCASIONAL REFLUX - Other Health History Other Health History: HX bilateral narrow angle glaucoma-corrected. Osteoarthritis in joints. Bruise easily & skin tears - Chronic Pain History Chronic Pain: Yes (spine) - Surgical History Prior Surgeries: 1974-tonsils. 1977-tubal ligation. 2005-D&C. 2009-bilateral thumb tendon. 2010-L knee scope. 2011-partial L knee plasty. 2013-bilateral. CERVICAL 2013 C456 FUSION, LUMBAR 2014 [id number] surg for glaucoma.NARROW ANGLE ANE Review of Systems Review of systems is: negative Review of Systems: - Exercise capacity Exercise capacity: limited by disability ANE Patient History - Allergies Allergies/Adverse Reactions: Sulfa (Sulfonamide Antibiotics) Allergy (Mild, Verified 04/02/14 13:47) Hives - Home Medications Home medications: home medication list seen and reviewed Home Medications: Albuterol [Proventil Inhaler HFA (*)] 2 puffs IH DAILY PRN 05/31/11 [Last Taken 10/25/16] Levothyroxine [Synthroid 150 mcg (*)] 150 mcg PO MOTUWETHFR@06 05/31/11 [Last Taken 11/17/16] Methylcellulose [Citrucel] 4 cap PO DAILY 05/31/11 [Last Taken 11/01/16] Levothyroxine Sodium 75 mcg PO SA@06 03/24/13 [Last Taken 11/13/16] Omeprazole 20 mg PO BID PRN 12/20/13 [Last Taken 11/18/16] Simvastatin [Zocor 20 mg] 20 mg PO HS 12/20/13 [Last Taken 11/17/16] Zolpidem Tartrate [Ambien 5MG (*)] 2.5 mg PO HS PRN 12/20/13 [Last Taken ] Azelastine HCl [Astepro] 1 spray NS DAILY PRN 03/13/14 [Last Taken 11/08/16 05: 00] Gabapentin [Neurontin 300 MG (*)] 600 mg PO BID 04/02/14 [Last Taken 11/17/16] Ascorbic Acid [Vitamin C 500 mg (*)] 1,000 mg PO BID 10/07/16 [Last Taken ] FLUoxetine [Prozac 20 MG (*)] 20 mg PO DAILY 10/07/16 [Last Taken 11/18/16] amLODIPine BESYLATE [Norvasc 5 mg (*)] 5 mg PO DAILY 10/07/16 [Last Taken ] Acetaminophen [Tylenol ES 500 mg (*)] 1,000 mg PO Q8HRS PRN 11/18/16 [Last Taken 11/18/16 09:00] Sennosides/Docusate Sodium [Senokot-S] 1 - 2 tab PO BID PRN 11/18/16 [Last Taken 11/18/16 09:00] Spironolactone [Aldactone 25 MG (*)] 50 mg PO HS 11/18/16 [Last Taken 11/17/16] Warfarin Sodium [Coumadin 3MG (*)] 3 mg PO DAILY16 11/18/16 [Last Taken Unknown] oxyCODONE IR [Oxycodone Ir (*)] 5 mg PO Q4HRS PRN 11/18/16 [Last Taken 11/18/16 08:00] - NPO status NPO Status: no food or drink >8 hours NPO Since - Liquids (Date): 11/21/16 NPO Since - Liquids (Time): 23:59 NPO Since - Solids (Date): 11/21/16 NPO Since - Solids (Time): 23:59 - Smoking Hx Smoking Status: Former smoker - Family Anes Hx Family Hx Anesthesia Complications: NONE ANE Labs/Vital Signs - Labs Result Diagrams: 11/19/16 04:15 11/22/16 04:30 - Vital Signs Blood Pressure: 141/74 Heart Rate: 72 Respiratory Rate: 16 O2 Sat (%): 99 Height: 157.48 cm Weight: 82.3 kg ANE Physical Exam - Airway Neck exam: FROM Mallampati Score: Class 1 Mouth exam: normal dental/mouth exam - Pulmonary Pulmonary: no respiratory distress - Cardiovascular Cardiovascular: regular rate and rhythym - ASA Status ASA Status: III ANE Anesthesia Plan Anesthesia Plan: general endotracheal anesthesia Lines/Monitors: arterial line, additional IV
[2016-11-22] MEDS ORDERED: fentaNYL 100 MCG/2 ML INJ IVP PRN (14:00)
[2016-11-22] MEDS ORDERED: MIDAZOLAM 2 MG/2 ML VIAL IVP ONE (14:00)
[2016-11-22] MEDS ORDERED: HYDROmorphONE/DILAUDID 2 MG/ML INJ ONE (14:09)
[2016-11-22] MEDS ORDERED: ONDANSETRON 4 MG/2 ML VIAL ONE (14:09)
[2016-11-22] MEDS ORDERED: LIDOCAINE 2% 100 MG/5 ML SYR ONE (14:09)
[2016-11-22] MEDS ORDERED: DEXAMETHASONE 4 MG/ML VIAL ONE (14:09)
[2016-11-22] MEDS ORDERED: ROCURONIUM 100 MG/10 ML VIAL ONE (14:10)
[2016-11-22] MEDS ORDERED: PROPOFOL 200 MG/20 ML VIAL ONE (14:10)
[2016-11-22] MEDS ORDERED: PROPOFOL/EMULSION 500 MG/50 ML BOTTLE IV ONE (14:10)
[2016-11-22] MEDS ORDERED: REMIFENTANIL HCL 1 MG VIAL ONE (14:10)
[2016-11-22] MEDS ORDERED: fentaNYL 100 MCG/2 ML INJ ONE ×3 (14:10→19:09)
[2016-11-22] MEDS ORDERED: MIDAZOLAM 2 MG/2 ML VIAL ONE (14:15)
[2016-11-22] MEDS ORDERED: PHENYLEPHRINE HCL 100 MCG/ML SYR ONE (14:32)
[2016-11-22] MEDS ORDERED: diphenhydrAMINE 25 MG CAP PO PRN (15:15)
[2016-11-22] MEDS ORDERED: DEXMEDETOMIDINE HCL 400 MCG in NS 100 ML IV SCH (15:30)
[2016-11-22] MEDS ORDERED: POLYMYXIN B SULFATE 500,000 UNIT/10 ML SYR IRR ONE ×2 (15:56→15:57)
[2016-11-22] MEDS ORDERED: epHEDrine SULFATE 10 MG/ML SYR ONE (15:57)
[2016-11-22] MEDS ORDERED: PHENYLEPHRINE 10 MG/ML SDV ONE (16:01)
[2016-11-22] MEDS ORDERED: HYDROCODONE/APAP 5/325 TAB PO PRN (17:16)
[2016-11-22] MEDS ORDERED: ACETAMINOPHEN 500 MG TAB PO PRN (17:16)
[2016-11-22] MEDS ORDERED: DEXAMETHASONE 4 MG/ML VIAL IVP PRN (17:16)
[2016-11-22] MEDS ORDERED: OXYCODONE/APAP 5/325 TAB PO PRN (17:16)
[2016-11-22] MEDS ORDERED: ONDANSETRON 4 MG/2 ML VIAL IVP PRN (17:16)
[2016-11-22] MEDS ORDERED: NALOXONE HCL 0.4 MG/ML INJ IVP PRN (17:16)
[2016-11-22] MEDS ORDERED: MEPERIDINE 25 MG/ML SYR IVP PRN (17:16)
[2016-11-22] MEDS ORDERED: PROMETHAZINE HCL 25 MG/ML INJ IVP PRN (17:16)
[2016-11-22] MEDS ORDERED: LABETALOL HCL 50 MG/10 ML SYR IVP PRN (17:16)
--- NOTE | 2016-11-22 17:18 | POSTANESTH ---
Post Anesthetic Evaluation Cardiovascular Status: Similar to Pre-Op Cond Respiratory Status: Similar to Pre-op Cond. Level of Consciousness/Mental Status: Can Participate in Eval, Mildly Sleepy, Arousable Nausea/Vomiting Control: Adequate, Prn Tx Ordered Complications Possibly Related to Anesthesia: None Noted
[2016-11-22] MEDS ORDERED: SILVER NITRATE APPLICATOR 1 APPL TP ONE (18:03)
--- NOTE | 2016-11-22 18:54 | POSTOPPROG ---
Post Op Note Date of Operation: 11/22/16 Surgeon: Rocio Yin Director Of Pupil Personnel Program: Rocio Yin SAUSAGE WRAPPER Anesthesia: GET(General Endotracheal) Indication: Lumbar/thoracic stenosis Procedure: T12-L1 Laminectomy, T10-S1 fusion Inf/Abcess present in the surg proc area at time of surgery?: No Depth: Deep Incisional (Fascial) EBL: 100-500 Total fluids administered: See anesthesia Complications: none Drains: Prem Casanova Specimen(s): -Deep lumbar wound tissue Culture Date of Surgery: 11/22/16 Post Op Day: 0 Assessment/Plan: 71 yr old s/p T12-L1 laminectomy, T10-S1 fusion 11/22 after progressive back and bilateral leg pain following a T10-11 TLIF with L1-S1 tied into existing hardware 2 weeks ago. Plan: -Will admit to ICU, Precedex ordered if needed -Patient has current PE and DVT and is off anticoagulation for surgery, ok to restart lovenox Tuesday and long tern anticoagulants Wednesday 11/29 -PT/OT to eval and treat -Cytotechnologist/Histotechnologist will need to fit patient with TLSO brace -Post op x-rays pending -Aquacel dressing in place, will need to leave in place for 7 days -Patient with right shoulder discomfort post op,likely related to positioning, will continue to follow -Call neurosurgery with any questions/concerns Subjective: Patient waking up in PACU Objective: Waking up in PACU PERRLA EOMI 5/5 BUE, BLE Sensation intact to light touch BLE ALCIDES in place Dressing CDI Appropriate Neuro Check Frequency Ordered: Yes
[2016-11-22] MEDS ORDERED: HYDROmorphONE/DILAUDID 1 MG/ML INJ ONE ×2 (19:09→19:56)
[2016-11-22] MEDS: fentaNYL 100 MCG/2 ML INJ IVP PRN ×2 (19:15→19:32)
--- NOTE | 2016-11-22 20:15 | GOP ---
[f rep st] OPERATIVE REPORT DATE OF OPERATION: 11/22/2016 SURGEON: Elena Kaba MD NEUROSURGEON: Elena Kaba MD. CAMPGROUND HAND: Rocio Yin NPT. PREOPERATIVE DIAGNOSIS: Adjacent segment spinal stenosis T11-12, T12-L1; severe bilateral lower extremity and lower abdominal pain with inguinal pain. POSTOPERATIVE DIAGNOSIS: Adjacent segment spinal stenosis T11-12, T12-L1; severe bilateral lower extremity and lower abdominal pain with inguinal pain. PROCEDURE PERFORMED: We did a laminectomy T11-T12, T12-L1 with bilateral medial facetectomies at T11-12 and T12-L1, decompression central spinal canal with a posterolateral arthrodesis T11-12, T12-L1, placement of new non segment T12 but segmental hardware from T10-S1, removal of posterior instrumentation T10 -S1. Spinal stereotaxis. FINDINGS: ESTIMATED BLOOD LOSS: 500 cc. INDICATIONS: The patient is an elderly female, who just 2 weeks ago underwent a posterior lateral and intervertebral arthrodesis at T10-11. This was complicated by intraoperative loss of motor-evoked potentials. Postoperatively however, she actually had really no evidence of lower extremity weakness, despite our intraoperative challenges that we encountered. She did wake up with bilateral lower abdominal pain and inguinal pain. This was different than prior to surgery. We thought this might be related to positioning and she was slowly improving. It was difficult pain but she was able to leave the hospital. She also woke up with postoperative hypotension as well as a right upper extremity DVT with a small pulmonary embolus and was anticoagulated for this problem. She ultimately did go home and then while at home, she had a precipitous decline in her status. She developed severe excruciating radiating pain into her inguinal region bilaterally and into both legs, and came to the emergency room because it was unbearable pain, probably worse than any pain that she had been experiencing previously as it related to her spine. New images were performed and they demonstrated no evidence of complication at T10- 11 or from L1-S1; and in fact the spinal stenosis at L1-2, 2-3 and 3-4 was improved compared to her preop studies, although we did not actually performed laminectomies at those levels. She had worsening spinal stenosis and possibly even a new disc protrusion or bulge at T12-L1 just above the prior construct. She did have preexisting disease there and it was severe, and at the time of her last surgery we felt that she would require ultimately a fusion from T10-S1 , but we of course never expected a decline at these adjacent levels so quickly. It was felt however that in an effort to preserve as many motion segments as possible in her spine that we could forego this level. However on the new MRI performed in the emergency room, she demonstrated rather dramatic worsening of stenosis at T12/L1 a level not included in the surgery 2 weeks ago.. She also had persistent stenosis at T11-12 and for these reasons, she was admitted to the hospital. We obtain medical clearance, got her off her Coumadin anticoagulation and tried to manage her pain. Really nothing could control the pain. She was unable to ambulate and remained bed ridden and for these reasons, we elected to take her to the OR. This was a return to the OR for a new procedure at a previously untouched level of her spine. The risk of continued symptoms nerve injury, spinal fluid leak, and the possible need for additional spine surgery as well as the risk of pseudoarthrosis and infection was discussed. They understood she may develop problems at T9-10 above the construct. She also was at greater risk of construct failure given the size of the construct. She wanted to proceed despite these risks. DESCRIPTION OF PROCEDURE: Patient was taken to the operating room, placed in the supine position. General anesthesia was begun. She was flipped prone on the Prem table. Care was taken to pad all points of contact. Cornejo catheter had been placed. She also had an arterial line placed by the Anesthesia Service prior to this positioning. There was some stiffness in her right shoulder at the time of positioning but I did not find it to be out of the ordinary, and we kept her shoulder and physiologic position. Motor and somatosensory-evoked potentials were monitored throughout surgery. She was sterilely prepped and draped in usual fashion. We opened the prior incision from T10-S1 and cut the subcutaneous sutures. There was no evidence of infection whatsoever. We tried to remove all of the sutures from the prior surgery. We cultured some of the subfascial fluid. It was hematoma consistent with sort of normal healing. There was no evidence whatsoever of any infection. We placed self-retaining retractors. Removed the cap screws for the pedicle screws at T10 and T11. We removed the cap screws from L1-S1 and then removed the bridget at T10-11 bilaterally, as well as the bridget from L1-S1 bilaterally. The left L1 screw was somewhat loose, and we threaded this into the L1 pedicle more deeply. We performed an O-arm spin. We then placed pedicle screws bilaterally using stainless steel stereotactic T12. All the other screws, notably at L1 were inspected. They were in good position. The screw at L2 and L3 were in good position. We did not see the screws at L4-5 and 1. We did see the T10-11 screws and those were in good position. We took a new bridget, cut the bridget and conformed to the spine. We really did not change the shape of the spine whatsoever. There was a natural thoracolumbar mild kyphosis restraining the spine in that area and lordosis of the lumbar spine. We could see through the bridget to fit into the t[place]ips and there was really no difficulty in this and then we placed the rods down from T10-S1 and then final tightened the cap screws according to company specification. We left all the posterolateral bone at L1-2, 2-3, 3-4. We did not want to disturb the posterior lateral bone that had been placed before. We did irrigate a large amount of antibiotic saline solution, but there was posterior lateral material from our prior bone grafting and we left this in place. Again there was no evidence of infection. We did the same at T10 and T11. There was no evidence of complication there. There was normal blood in the epidural space and healing posterolateral bone on both sides. We then carefully cleaned off all the soft tissue of the bone at T11-12, 12-1. We then harvested the T11 spinous process, T12 spinous process, and the rostral L1 spinous process for autologous grafting purposes. We then used a bone trap. We drilled a T11-12, 12 lami, performed a complete 12-1 laminectomy. We removed the rostral arch of L1 and the entire caudal inferior T11 lamina, and we worked our way out and performed bilateral medial facetectomies and undercut the facet joints and performed foraminotomies here. We ensured that in the foramen at T11-12 and 12-1 that we did do foraminotomies. We decorticated all the bone posterolaterally bilaterally at T11-12 and T12-L1 and L1-L2 once again, and we placed fresh bone autograft and BMP posterior laterally from at T10-11, as well as additional new bone at T10-11 and then laid new bone at T11-12, T12-L1 and L1-L2. We then placed a subfascial drain. We then closed the incision in multiple layers using Vicryl sutures and running PDS was placed in the skin itself. Steri- Strips were applied. The patient was reversed from anesthesia, extubated, transferred to recovery room in stable condition. There were no complications. COMPLICATIONS: None. INSTRUMENTATION USED: Was the [employer]onic 5.5 mm Solera pedicle screw at T12, with a 5.5 mm titanium bridget from T10-S1. /[id number]/MODL MTDD
[2016-11-22 21:47] LABS: HEMATOCRIT 24.6 % (38.0-47.0); HEMOGLOBIN 7.9 g/dL (12.6-16.3)
[2016-11-22] MEDS: SPIRONOLACTONE 25 MG TAB PO SCH (22:17)
[2016-11-22] MEDS: ATORVASTATIN CALCIUM 10 MG TAB PO SCH (22:17)
[2016-11-22] MEDS: FAMOTIDINE 20 MG TAB PO SCH (22:17)
[2016-11-22] MEDS: ceFAZolin 2 GM/DEXTROSE 100 ML IV SCH (22:48)
[2016-11-23] MEDS: morphINE SR 15 MG TAB PO SCH ×3 (00:05→20:39)
[2016-11-23] MEDS: HYDROmorphONE/DILAUDID 1 MG/ML INJ IVP PRN ×7 (01:33→22:45)
[2016-11-23] MEDS: PANTOPRAZOLE SODIUM 40 MG TAB PO PRN (02:06)
[2016-11-23] MEDS: LEVOTHYROXINE 150 MCG TAB PO SCH (05:04)
[2016-11-23] MEDS: ceFAZolin 2 GM/DEXTROSE 100 ML IV SCH (05:04)
[2016-11-23 05:44] LABS: ANION GAP 5 mEq/L (8-16); CALCIUM 8.3 mg/dL (8.5-10.4); CARBON DIOXIDE 22 mEq/l (22-31); CHLORIDE 103 mEq/L (97-110); CREATININE 0.7 mg/dL (0.6-1.0); GLOMERULAR FILTRATION RATE > 60; GLUCOSE 108 mg/dL (70-100); POTASSIUM 4.4 mEq/L (3.5-5.2); SODIUM 130 mEq/L (134-144)
[2016-11-23 05:47] LABS: % IMMATURE GRANULYOCYTES 0.4 % (0.0-1.1); ABSOLUTE IMMATURE GRANULOCYTES 0.05 10^3/uL (0.00-0.10); ADD DIFF? NO; ADD MORPH? NO; ADD SCAN? NO; ATYPICAL LYMPHOCYTE FLAG 0 (0-99); FRAGMENT RBC FLAG 0 (0-99); HEMATOCRIT 22.7 % (38.0-47.0); HEMOGLOBIN 7.5 g/dL (12.6-16.3); LEFT SHIFT FLG 10 (0-99); LIPEMIA HEMOLYSIS FLAG 80 (0-99); MEAN CELL HEMOGLOBIN 31.5 pg (27.9-34.1); MEAN CELL VOLUME 95.4 fL (81.5-99.8); MEAN PLATELET VOLUME 9.7 fL (8.7-11.7); PLATELET CLUMPS FLAG 0 (0-99); PLATELET COUNT 500 10^3/uL (150-400); RED BLOOD CELL COUNT 2.38 10^6/uL (4.18-5.33)
[2016-11-23] MEDS ORDERED: ALTEPLASE 2 MG VIAL IVP PRN (08:14)
--- NOTE | 2016-11-23 08:18 | NEUSURGPN ---
Date of Surgery: 11/22/16 Post Op Day: 1 Assessment/Plan: 71 yr old s/p T12-L1 laminectomy, T10-S1 fusion 11/22 after progressive back and bilateral leg pain following a T10-11 TLIF with L1-S1 tied into existing hardware 2 weeks ago. Plan: -Patient on low dose Precedex, pain controlled -Patient has current PE and DVT and is off anticoagulation for surgery, ok to restart lovenox Tuesday and long tern anticoagulants Wednesday 11/29 -PT/OT to eval and treat-ok to wait until TLSO brace arrives -Ems Educator will need to fit patient with TLSO brace -Post op x-rays pending-will need to wait for TLSO brace to arrive -Aquacel dressing in place, will need to leave in place for 7 days -Platelets 500, will continue to monitor -H/H 08/28, SBP in 80's despite fluid bolus during the night, will transfuse 2 units PRBCs this am -Place double lumen PICC line and dc left ankle PIV, will need to keep SCDs on continuously until ambulating -Appreciate Crit Care recs with medical management -Call neurosurgery with any questions/concerns Subjective: Patient with expected incisional pain, groin pain improved Objective: AxO x3 PERRLA, EOMI EOMI 5/5 BUE, BLE Sensation intact to light touch BLE ALCIDES in place Dressing CDI Neuro Check Frequency: per routine Urinary Catheter in Place: Yes Urinary Catheter Indication: Other (Use Comment) (post op, on precedex) - Physician Discussed Patient with : Sesar Patient Seen by : Sesar Neurosurgery Physical Exam - Vitals, I&O, Labs I and O 11/22/16 11/23/16 11/24/16 05:59 05:59 05:59 Intake Total 740 5220 Output Total 2170 Balance 740 3050 Weight 82.3 kg 83.1 kg Intake: Oral (ml) 740 50 IV Intake (ml) 3330 IV Infused (ml) 1840 Dexmedetomidine HCl 400 47 mcg In Ns 100 ml @ Titrate IV CONT MAURI Rx#: [id number] Ns 1,000 ml @ 75 mls/hr 1793 IV CONT MAURI Rx#: [id number] Output: Urine (ml) 1550 Catheter 1550 Estimated Blood Loss (ml) 500 ALCIDES Drain Output (ml) 120 Back Prem Casanova 120 Other: Intake Quantity Yes No Sufficient Number of Voids Toilet 1 2 Microbiology 11/22/16 15:43 Gram Stain - Final Back - Tissue Vital Signs Temp Pulse Resp BP Pulse Ox 36.7 C 56 L 10 L 84/36 L 95 11/22/16 20:21 11/23/16 06:00 11/23/16 06:00 11/23/16 06:00 11/23/16 06:00 Laboratory Results 11/23/16 05:25 11/23/16 05:25 ICD10 Worksheet Patient Problems: Problems Problem Status Onset Postoperative back pain Acute Arthrodesis status Acute Asthma exacerbation Acute Cervical radiculitis Acute Low back pain Acute Lumbosacral stenosis Acute Neck pain Acute
[2016-11-23] MEDS: SODIUM CHLORIDE 1,000 MG TAB PO SCH ×2 (08:35→17:36)
[2016-11-23] MEDS: FAMOTIDINE 20 MG TAB PO SCH ×2 (08:36→20:46)
[2016-11-23] MEDS: ASCORBIC ACID 500 MG TAB PO SCH ×2 (08:36→20:39)
[2016-11-23] MEDS: FLUoxetine 20 MG CAP PO SCH (08:36)
[2016-11-23] MEDS: GABAPENTIN 300 MG CAP PO SCH ×2 (08:36→20:39)
[2016-11-23] MEDS: POLYETHYLENE GLYCOL 3350 17 GM PKT PO SCH (08:36)
[2016-11-23] MEDS: SENNOSIDES/DOCUSATE SODIUM TAB PO SCH (08:37)
[2016-11-23] MEDS: NS 1,000 ML IV SCH ×2 (09:35→18:07)
--- NOTE | 2016-11-23 14:42 | HOSPPROG ---
Hospitalist Progress Note Assessment/Plan: * Lumbar fusion s/p revision -pain control difficult - currently on IV precedex gtt/ IV dilaudid -TLSO brace pending * PE/PICC line associated DVT -anticoagulation - okay to restart Tuesday per neurosurgery * SIADH -salt tabs * Anemia -transfuse 2 units PRBC today * Constipation - resolved * Obesity BMI 33 Subjective: Pain is 6/10, not getting out of bed today pending brace Objective: Vital Signs Temp Pulse Resp BP Pulse Ox 36.4 C 63 15 107/44 L 98 11/23/16 12:00 11/23/16 12:00 11/23/16 12:00 11/23/16 12:00 11/23/16 12:00 Microbiology 11/22/16 15:43 Gram Stain - Final Back - Tissue Laboratory Results 11/23/16 05:25 11/23/16 05:25 11/22/16 11/23/16 11/24/16 05:59 05:59 05:59 Intake Total 740 5220 Output Total 2170 55 Balance 740 3050 -55 PT 18.0 SEC (12.0-15.0) H 11/18/16 11:17 INR 1.49 (0.83-1.16) H 11/18/16 11:17 - Physical Exam Constitutional: no apparent distress, appears nourished, not in pain Cardiovascular: regular rate and rhythym, no murmur, rub, or gallop Respiratory: no respiratory distress, no rales or rhonchi, clear to auscultation Gastrointestinal: normoactive bowel sounds, soft, non-tender abdomen, no palpable masses Skin: no rashes or abrasions, no fluctuance, no induration Neurologic: AAOx3, sensation intact bilaterally Psychiatric: interacting appropriately, not anxious, not encephalopathic, thought process linear ICD10 Worksheet Patient Problems: Problems Problem Status Onset Postoperative back pain Acute Arthrodesis status Acute Asthma exacerbation Acute Cervical radiculitis Acute Low back pain Acute Lumbosacral stenosis Acute Neck pain Acute
--- NOTE | 2016-11-23 16:08 | ASMTCMCOM ---
CM Note CM Note Notes: Patient in ICU after spinal fusion revision T12-L1 lami, T10-S1 fusion. Also concern for DVT and PE. Patient to get fitted for a brace before [facility] and moving[facility] Date Signed: 11/23/2016 04:07 PM Electronically Signed By:Isi Navarrete LCSW
[2016-11-23] MEDS: MAGNESIUM HYDROXIDE 30 ML UDCUP PO PRN (17:36)
[2016-11-23] MEDS ORDERED: CALCIUM CARBONATE 500 MG TAB PO PRN (18:04)
[2016-11-23 18:26] LABS: HEMATOCRIT 31.7 % (38.0-47.0); HEMOGLOBIN 11.1 g/dL (12.6-16.3); LIPEMIA HEMOLYSIS FLAG 90 (0-99); MEAN CELL HEMOGLOBIN 32.1 pg (27.9-34.1); MEAN CELL VOLUME 91.6 fL (81.5-99.8); PLATELET COUNT 463 10^3/uL (150-400); RED BLOOD CELL COUNT 3.46 10^6/uL (4.18-5.33); RED CELL DISTRIBUTION WIDTH 15.1 % (11.5-15.2)
[2016-11-23] MEDS ORDERED: CALCIUM CARBONATE 500 MG CHEWABLE TAB PO PRN (18:30)
[2016-11-23] MEDS: CYCLOBENZAPRINE 10 MG TAB PO PRN (18:34)
[2016-11-23] MEDS: ATORVASTATIN CALCIUM 10 MG TAB PO SCH (20:40)
[2016-11-23] MEDS: METHOCARBAMOL 750 MG TAB PO PRN (20:40)
[2016-11-23] MEDS: SPIRONOLACTONE 25 MG TAB PO SCH (21:00)
--- NOTE | 2016-11-23 21:17 | GCON ---
[f rep st] CONSULTATION PULMONARY CRITICAL CARE CONSULTATION DATE OF CONSULTATION: 11/23/2016 INDICATION: Intensive care unit evaluation and medical management following extensive back surgery. HISTORY: The patient is a 71-year-old who was admitted 11/18 for increasing back pain. She had spin al surgery on 11/08. Her course was complicated by blood-loss anemia, constipation, and a right uppe r extremity DVT with pulmonary embolism. She was discharged on Coumadin. In the several days prior to her readmission, she had increasing pain. She thus was brought back to the hospital and admitted. MRI showed some increased stenosis from T10 through T12. She was taken back to the operating room yesterday by Dr. Kaba for repeat surgery. She had a laminectomy at T11-T12 and T12-L1 with decompr ession in that area, removal of old hardware from T10 to S1, and placement of new hardware. Estimate d blood loss was 500 mL. She was returned to the intensive care unit postoperatively. She was place d on Precedex and pain medications for control of her back pain. She has been stable postoperatively . PAST MEDICAL HISTORY: Remarkable for a catheter-induced DVT and small pulmonary embolism associated with her previous surgery, asthma, hypothyroidism on replacement, and depression. PAST SURGICAL HISTORY: Has included previous lumbar surgery and cervical surgery, left knee surgery. DRUG ALLERGIES: Sulfa preparations. SOCIAL HISTORY: The patient is with a supportive and family. She smoked cigarettes in the distant past. Alcohol is negative. FAMILY HISTORY: Noncontributory. REVIEW OF SYSTEMS: Unobtainable secondary to the patient's sedation. PHYSICAL EXAMINATION: VITAL SIGNS: Blood pressure is approximately 100/45, heart rate 65 with sinus rhythm on the monitor. Respiratory rate is 16. She is afebrile. HEENT: Remarkable for small and equal pupils. She is currently not requiring any nasal cannula. NECK: There is no obvious lymphade nopathy or thyromegaly, no jugular venous distention. CHEST: Clear anteriorly. Breath sounds are d iminished at the bases. HEART: Regular in rate and rhythm. Heart tones are somewhat distant. ABDO MEN: Soft and nontender. Bowel sounds are diminished but present. EXTREMITIES: Unremarkable for s ignificant edema, cords or tenderness. Sequential compression devices are in place. NEUROLOGIC: No nfocal. She is somewhat lethargic from medications but arouses and is appropriate. : Cornejo loly ter is in place with good urine output. LABORATORY: White blood cell count is 11,000, hematocrit 22.7. Platelet count is 500,000. Sodium i s 130, potassium 4.4, BUN 12, with a creatinine is 0.7. Glucose is 100, calcium 8.3. Urine osmolali ty is low, urine sodium 13. ASSESSMENT: 1. Status post redo lumbar surgery as outlined above. This is associated with significant back pain . She is on a Precedex drip to help control her pain, has narcotics ordered both intravenous and ora l. She is doing reasonably well at this time. 2. Acute blood-loss anemia. Blood is being ordered, 2 units. H and H will be followed. 3. History of asthma. She is on albuterol on a p.r.n. basis without signs or symptoms of significan t wheezing at the present time. 4. Recent catheter-associated deep vein thrombosis and small pulmonary embolism. She is off anticoa gulation currently secondary to her surgery which was associated with some blood loss. Anticoagulati on prophylactically will be re-started in several days per Neurosurgery and subsequently whole-dose a nticoagulation will need to be re-initiated for 3 months. 5. History of other medical problems including systemic hypertension, hyperlipidemia, allergies, etc . These problems are stable. She will be taking her regular outpatient medications for these. PLAN AND RECOMMENDATIONS: The patient will be kept in the intensive care unit. Appropriate pain con trol will be maintained. Precedex will continue to be utilized along with intravenous and oral narco tics. A TLSO brace has been ordered for mobilization. Hemoglobin and hematocrit, and laboratory jazzy l be followed. Further plans and recommendations will be made based on her progress over the next 12-24 hours. /[id number]/MODL
[2016-11-23] MEDS ORDERED: DIAZEPAM 10 MG/2 ML SYR IVP ONE (21:45)
[2016-11-23] MEDS ORDERED: morphINE SR 15 MG TAB PO ONE (21:45)
[2016-11-23] MEDS: oxyCODONE IR 5 MG TAB PO PRN (23:05)
[2016-11-24] MEDS: DIAZEPAM 5 MG TAB PO PRN ×3 (00:02→21:27)
[2016-11-24] MEDS: HYDROmorphONE/DILAUDID 1 MG/ML INJ IVP PRN ×2 (01:51→07:30)
[2016-11-24] MEDS: METHOCARBAMOL 750 MG TAB PO PRN ×2 (02:57→21:25)
[2016-11-24] MEDS: oxyCODONE IR 5 MG TAB PO PRN ×3 (02:57→10:48)
[2016-11-24] MEDS: NS 1,000 ML IV SCH (03:02)
[2016-11-24] MEDS: LEVOTHYROXINE 150 MCG TAB PO SCH (05:54)
[2016-11-24 06:26] LABS: % IMMATURE GRANULYOCYTES 0.4 % (0.0-1.1); ABSOLUTE IMMATURE GRANULOCYTES 0.04 10^3/uL (0.00-0.10); ADD DIFF? NO; ADD MORPH? NO; ADD SCAN? NO; ATYPICAL LYMPHOCYTE FLAG 10 (0-99); FRAGMENT RBC FLAG 30 (0-99); HEMATOCRIT 31.3 % (38.0-47.0); HEMOGLOBIN 10.6 g/dL (12.6-16.3); LEFT SHIFT FLG 0 (0-99); LIPEMIA HEMOLYSIS FLAG 90 (0-99); MEAN CELL HEMOGLOBIN 31.5 pg (27.9-34.1); MEAN CELL HEMOGLOBIN CONCENTR. 33.9 g/dL (32.4-36.7); MEAN CELL VOLUME 92.9 fL (81.5-99.8); MEAN PLATELET VOLUME 9.2 fL (8.7-11.7); PLATELET CLUMPS FLAG 30 (0-99); PLATELET COUNT 499 10^3/uL (150-400); RED BLOOD CELL COUNT 3.37 10^6/uL (4.18-5.33); RED CELL DISTRIBUTION WIDTH 15.4 % (11.5-15.2)
--- NOTE | 2016-11-24 07:24 | NEUSURGPN ---
Date of Surgery: 11/22/16 Post Op Day: 2 Assessment/Plan: 71 yr old s/p T12-L1 laminectomy, T10-S1 fusion 11/22 after progressive back and bilateral leg pain following a T10-11 TLIF with L1-S1 tied into existing hardware 2 weeks ago. Plan: -Precedex discontinued, patient pain controlled with IV medications and PO, had incisional flare up with spasm last night, controlled with IV valium -Pre op groin/abdominal pain remains improved -Patient has current PE and DVT and is off anticoagulation for surgery, ok to restart lovenox Tuesday and long tern anticoagulants Wednesday 11/29 -PT/OT to eval and treat-ok to wait until TLSO brace arrives-should arrive this am 11/24 by Oncology Nurse Navigator -Post op x-rays pending-will need to wait for TLSO brace to arrive -Aquacel dressing in place, will need to leave in place for 7 days -H/H improved 12/06 after two united PRBCs yesterday -PICC line placed yesterday -Keep SCDs on continuously -Appreciate Crit Care recs with medical management -Call neurosurgery with any questions/concerns Subjective: Patient has increased incisional pain/spasm through the night Objective: PERRLA, EOMI EOMI 5/5 BUE, BLE Sensation intact to light touch BLE ALCIDES in place Dressing CDI Neuro Check Frequency: per routine Urinary Catheter in Place: Yes Urinary Catheter Indication: Other (Use Comment) (Recent surgery, bedrest) - Physician Discussed Patient with : Sesar Patient Seen by : Sesar Neurosurgery Physical Exam - Vitals, I&O, Labs I and O 11/23/16 11/24/16 11/25/16 05:59 05:59 05:59 Intake Total 5220 3433 Output Total 2170 3505 Balance 3050 -72 Weight 83.1 kg 85 kg Intake: Oral (ml) 50 1300 IV Intake (ml) 3330 IV Infused (ml) 1840 1383 Dexmedetomidine HCl 400 47 30 mcg In Ns 100 ml @ Titrate IV CONT MAURI Rx#: [id number] Ns 1,000 ml @ 75 mls/hr 1793 1353 IV CONT MAURI Rx#: [id number] Whole Blood (ml) 750 Output: Urine (ml) 1550 3350 Catheter 1550 3350 Estimated Blood Loss (ml) 500 ALCIDES Drain Output (ml) 120 155 Back Prem Casanova 120 155 Other: Intake Quantity No Sufficient Number of Voids Toilet 2 Microbiology 11/22/16 15:43 Gram Stain - Final Back - Tissue Vital Signs Temp Pulse Resp BP Pulse Ox 36.5 C 71 12 92/49 L 96 11/24/16 00:00 11/24/16 04:00 11/24/16 04:00 11/24/16 04:00 11/24/16 04:00 Laboratory Results 11/24/16 06:05 ICD10 Worksheet Patient Problems: Problems Problem Status Onset Postoperative back pain Acute Arthrodesis status Acute Asthma exacerbation Acute Cervical radiculitis Acute Low back pain Acute Lumbosacral stenosis Acute Neck pain Acute
[2016-11-24 07:45] LABS: ANION GAP 7 mEq/L (8-16); CALCIUM 8.2 mg/dL (8.5-10.4); CARBON DIOXIDE 24 mEq/l (22-31); CHLORIDE 103 mEq/L (97-110); CREATININE 0.7 mg/dL (0.6-1.0); GLOMERULAR FILTRATION RATE > 60; GLUCOSE 87 mg/dL (70-100); POTASSIUM 4.2 mEq/L (3.5-5.2); SODIUM 134 mEq/L (134-144)
[2016-11-24] MEDS: GABAPENTIN 300 MG CAP PO SCH ×2 (08:21→21:25)
[2016-11-24] MEDS: ASCORBIC ACID 500 MG TAB PO SCH ×2 (08:21→21:28)
[2016-11-24] MEDS: SENNOSIDES/DOCUSATE SODIUM TAB PO PRN (08:21)
[2016-11-24] MEDS: amLODIPine BESYLATE 5 MG TAB PO SCH (08:22)
[2016-11-24] MEDS: FAMOTIDINE 20 MG TAB PO SCH (08:22)
[2016-11-24] MEDS: morphINE SR 30 MG TAB PO SCH ×2 (08:22→21:25)
[2016-11-24] MEDS: SODIUM CHLORIDE 1,000 MG TAB PO SCH ×2 (08:22→18:13)
[2016-11-24] MEDS: FLUoxetine 20 MG CAP PO SCH (08:22)
--- NOTE | 2016-11-24 15:02 | HOSPPROG ---
Hospitalist Progress Note Assessment/Plan: * Lumbar fusion s/p revision -pain control difficult - IV dilaudid KILN FURNITURE SAW TENDER -TLSO brace * PE/PICC line associated DVT -anticoagulation - okay to restart Tuesday per neurosurgery * SIADH -salt tabs * Anemia -transfuse 2 units PRBC today -follow * Constipation - resolved * Obesity BMI 33 Subjective: Left flank pain without radiation down leg. possible muscle spasm , getting robaxin Objective: Vital Signs Temp Pulse Resp BP Pulse Ox 36.6 C 72 13 117/58 L 94 11/24/16 07:45 11/24/16 07:45 11/24/16 07:45 11/24/16 07:45 11/24/16 12:14 Microbiology 11/22/16 15:43 Gram Stain - Final Back - Tissue Laboratory Results 11/24/16 06:05 11/24/16 06:05 11/23/16 11/24/16 11/25/16 05:59 05:59 05:59 Intake Total 5220 3433 Output Total 2170 3505 1250 Balance 3050 -72 -1250 PT 18.0 SEC (12.0-15.0) H 11/18/16 11:17 INR 1.49 (0.83-1.16) H 11/18/16 11:17 - Physical Exam Constitutional: no apparent distress, appears nourished, not in pain Cardiovascular: regular rate and rhythym, no murmur, rub, or gallop Respiratory: no respiratory distress, no rales or rhonchi, clear to auscultation Gastrointestinal: normoactive bowel sounds, soft, non-tender abdomen, no palpable masses Skin: no rashes or abrasions, no fluctuance, no induration Neurologic: AAOx3, sensation intact bilaterally Psychiatric: interacting appropriately, not anxious, not encephalopathic, thought process linear ICD10 Worksheet Patient Problems: Problems Problem Status Onset Postoperative back pain Acute Arthrodesis status Acute Asthma exacerbation Acute Cervical radiculitis Acute Low back pain Acute Lumbosacral stenosis Acute Neck pain Acute
[2016-11-24 16:04] LABS: HEMATOCRIT 33.6 % (38.0-47.0); HEMOGLOBIN 11.4 g/dL (12.6-16.3)
--- NOTE | 2016-11-24 17:11 | PDINTPN ---
Full Time Staff Interpreter Progress Note Assessment/Plan: Assessment: Status post redo lumbar surgery. Postoperative pain has been an intermittent problem. Now doing better with back brace in place and mobilization. History of small distal right upper extremity DVT 2 weeks ago in the ulnar vein. No proximal clot. Pulmonary embolism, small volume, on the right. Off anticoagulation currently secondary to surgery. History of asthma, on inhaled medications without evidence of any significant acute problems. Acute blood-loss anemia. Status post 2 units of packed red blood cells. Hematocrit 33. No evidence of ongoing bleeding. History of hypertension, hyperlipidemia, etc. Stable. On her usual outpatient medications. Plan: Continue current therapies and supportive care. Increase mobilization as she has her back brace in place. Maintain appropriate pain control. Follow laboratory. Can transfer to a medical-surgical bed from my standpoint once okay with Neurosurgery. Restart prophylactic anticoagulation when okay with Neurosurgery, possibly tomorrow or Tuesday. Will need to transition to full- dose anticoagulation which she will need for 3 months. Subjective: Had lots of back pain last night, significantly better today. Got brace, now up in the chair, ambulatory, feeling much better. Objective: Vital Signs Temp Pulse Resp BP Pulse Ox 36.8 C 77 18 125/63 H 92 11/24/16 16:00 11/24/16 16:00 11/24/16 16:00 11/24/16 16:00 11/24/16 16:00 Microbiology 11/22/16 15:43 Gram Stain - Final Back - Tissue Laboratory Results 11/24/16 16:00 11/24/16 06:05 11/23/16 11/24/16 11/25/16 05:59 05:59 05:59 Intake Total 5220 3433 Output Total 2170 3505 1250 Balance 3050 -72 -1250 PT 18.0 SEC (12.0-15.0) H 11/18/16 11:17 INR 1.49 (0.83-1.16) H 11/18/16 11:17 Physical Exam - Physical Exam General Appearance: alert, no apparent distress, obese EENT: other (On room air) Neck: normal inspection (No JVD, relatively large neck.) Respiratory: lungs clear, decreased breath sounds (At bases) Cardiac/Chest: regular rate, rhythm Abdomen: normal bowel sounds, non-tender, soft Pelvic Exam: other (Cornejo catheter in place, good urine output) Back: Other (Wound dressed, not examined.) Skin: normal color, warm/dry Extremities: pedal edema (Trace) Neuro/Psych: no motor/sensory deficits, No cognition abnormalities ICD10 Worksheet Patient Problems: Problems Problem Status Onset Postoperative back pain Acute Arthrodesis status Acute Asthma exacerbation Acute Cervical radiculitis Acute Low back pain Acute Lumbosacral stenosis Acute Neck pain Acute
[2016-11-24] MEDS: SPIRONOLACTONE 25 MG TAB PO SCH (21:25)
[2016-11-24] MEDS: ATORVASTATIN CALCIUM 10 MG TAB PO SCH (21:27)
[2016-11-25 03:43] LABS: COLOR YELLOW; LEUKOCYTE ESTERASE,URINE NEGATIVE (NEGATIVE); NITRITE,URINE NEGATIVE (NEGATIVE)
[2016-11-25] MEDS: LEVOTHYROXINE 150 MCG TAB PO SCH (05:31)
[2016-11-25 05:49] LABS: % IMMATURE GRANULYOCYTES 0.3 % (0.0-1.1); ABSOLUTE IMMATURE GRANULOCYTES 0.03 10^3/uL (0.00-0.10); ADD DIFF? NO; ADD MORPH? NO; ADD SCAN? NO; ATYPICAL LYMPHOCYTE FLAG 10 (0-99); FRAGMENT RBC FLAG 0 (0-99); HEMATOCRIT 31.1 % (38.0-47.0); HEMOGLOBIN 10.5 g/dL (12.6-16.3); LEFT SHIFT FLG 0 (0-99); LIPEMIA HEMOLYSIS FLAG 90 (0-99); MEAN CELL HEMOGLOBIN 31.5 pg (27.9-34.1); MEAN CELL HEMOGLOBIN CONCENTR. 33.8 g/dL (32.4-36.7); MEAN CELL VOLUME 93.4 fL (81.5-99.8); MEAN PLATELET VOLUME 9.4 fL (8.7-11.7); PLATELET CLUMPS FLAG 0 (0-99); PLATELET COUNT 392 10^3/uL (150-400); RED BLOOD CELL COUNT 3.33 10^6/uL (4.18-5.33); RED CELL DISTRIBUTION WIDTH 14.6 % (11.5-15.2)
[2016-11-25 06:13] LABS: ANION GAP 7 mEq/L (8-16); CALCIUM 8.2 mg/dL (8.5-10.4); CARBON DIOXIDE 25 mEq/l (22-31); CHLORIDE 100 mEq/L (97-110); CREATININE 0.7 mg/dL (0.6-1.0); GLOMERULAR FILTRATION RATE > 60; GLUCOSE 89 mg/dL (70-100); POTASSIUM 4.2 mEq/L (3.5-5.2); SODIUM 132 mEq/L (134-144)
--- NOTE | 2016-11-25 07:26 | NEUSURGPN ---
Date of Surgery: 11/22/16 Post Op Day: 3 Assessment/Plan: 71 yr old s/p T12-L1 laminectomy, T10-S1 fusion 11/22 after progressive back and bilateral leg pain following a T10-11 TLIF with L1-S1 tied into existing hardware 2 weeks ago. Plan: -Pre op groin/abdominal pain remains improved -Patient has current PE and DVT and is off anticoagulation for surgery, ok to restart lovenox Tuesday and halfway anticoagulants Wednesday 11/29 -PT/OT -Post op x-rays stable hardware placement -Aquacel dressing in place, will need to leave in place for 7 days -Keep SCDs on continuously unless ambulating or in chair -Intra op wound cultures negative as of now -Will discontinue ALCIDES today -Appreciate Crit Care recs with medical management -Call neurosurgery with any questions/concerns Subjective: Patient feeling well, still using EDGE DYER at times Objective: PERRLA, EOMI EOMI 5/5 BUE, BLE Sensation intact to light touch BLE ALCIDES in place Dressing CDI Neuro Check Frequency: per routine Urinary Catheter in Place: No Catheter Insertion Date: 11/22/16 - Physician Discussed Patient with .: Sesar Patient Seen by : Sesar Neurosurgery Physical Exam - Vitals, I&O, Labs I and O 11/24/16 11/25/16 11/26/16 05:59 05:59 05:59 Intake Total 3433 2707 Output Total 3505 1895 Balance -72 812 Weight 85 kg Intake: Oral (ml) 1300 1000 IV Infused (ml) 1383 1707 Dexmedetomidine HCl 400 30 mcg In Ns 100 ml @ Titrate IV CONT MAURI Rx#: [id number] Ns 1,000 ml @ 75 mls/hr 1353 1707 IV CONT MAURI Rx#: [id number] Whole Blood (ml) 750 Output: Urine (ml) 3350 1800 Catheter 3350 1200 Toilet 600 ALCIDES Drain Output (ml) 155 95 Back Prem Casanova 155 95 Microbiology 11/22/16 15:43 Gram Stain - Final Back - Tissue Vital Signs Temp Pulse Resp BP Pulse Ox 36.7 C 76 16 117/61 92 11/25/16 04:00 11/25/16 04:00 11/25/16 04:00 11/25/16 04:00 11/25/16 04:00 Laboratory Results 11/25/16 05:26 11/25/16 05:26 ICD10 Worksheet Patient Problems: Problems Problem Status Onset Postoperative back pain Acute Arthrodesis status Acute Asthma exacerbation Acute Cervical radiculitis Acute Low back pain Acute Lumbosacral stenosis Acute Neck pain Acute
[2016-11-25] MEDS: SODIUM CHLORIDE 1,000 MG TAB PO SCH ×2 (07:44→18:34)
[2016-11-25] MEDS: oxyCODONE IR 5 MG TAB PO PRN ×5 (07:48→21:41)
[2016-11-25] MEDS: SENNOSIDES/DOCUSATE SODIUM TAB PO PRN (07:48)
[2016-11-25] MEDS: METHOCARBAMOL 750 MG TAB PO PRN ×2 (07:53→18:33)
[2016-11-25] MEDS: ASCORBIC ACID 500 MG TAB PO SCH ×2 (09:27→21:39)
[2016-11-25] MEDS: GABAPENTIN 300 MG CAP PO SCH ×2 (09:27→21:40)
[2016-11-25] MEDS: morphINE SR 30 MG TAB PO SCH ×2 (09:28→21:42)
[2016-11-25] MEDS: FLUoxetine 20 MG CAP PO SCH (09:28)
[2016-11-25] MEDS: amLODIPine BESYLATE 5 MG TAB PO SCH (09:28)
--- NOTE | 2016-11-25 10:48 | HOSPPROG ---
Hospitalist Progress Note Assessment/Plan: # Lumbar fusion s/p revision POD # 3 - ALCIDES drain removed today lumbar xray (personally reviewed and interpreted) shows good alignment oxygen saturations 94% on RA this am - weaning off IV Dilaudid MANAGER PROGRAMMING - cont TLSO brace - cont PT/OT # PE/PICC line associated DVT- current post-op off anticoagulation - restart Lovenox tomorrow - restart intermediate anticoagulation on 11/28 # SIADH - sodium remains mildly low this am 132 - cont salt tabs # Anemia -s/p 2 units PRBC - H&H stable -follow # Constipation - resolved # Obesity BMI 33 # proph - lovenox to restart tomorrow # diet - tolerating regular # dispo - > 2MN as requiring more post-operative recovery time to wean off IV narcotics I have discussed the case with RN- pt making excellent progress this am cont to wean Dilaudid as able Subjective: feeling so much better Objective: Vital Signs Temp Pulse Resp BP Pulse Ox 36.8 C 78 16 151/95 H 94 11/25/16 07:59 11/25/16 07:59 11/25/16 07:59 11/25/16 07:59 11/25/16 07:59 Microbiology 11/22/16 15:43 Gram Stain - Final Back - Tissue Laboratory Results 11/25/16 05:26 11/25/16 05:26 11/24/16 11/25/16 11/26/16 05:59 05:59 05:59 Intake Total 3433 2707 500 Output Total 3505 1895 460 Balance -72 812 40 PT 18.0 SEC (12.0-15.0) H 11/18/16 11:17 INR 1.49 (0.83-1.16) H 11/18/16 11:17 - Physical Exam Constitutional: no apparent distress Eyes: anicteric sclera Ears, Nose, Mouth, Throat: moist mucous membranes Cardiovascular: regular rate and rhythym Respiratory: no respiratory distress, no rales or rhonchi Gastrointestinal: normoactive bowel sounds, soft, non-tender abdomen Genitourinary: no bladder fullness Skin: normal color Musculoskeletal: No asymmetric calves Neurologic: AAOx3 Psychiatric: interacting appropriately, not anxious Lymph, Heme, Immunologic: no cervical LAD ICD10 Worksheet Patient Problems: Problems Problem Status Onset Postoperative back pain Acute Arthrodesis status Acute Asthma exacerbation Acute Cervical radiculitis Acute Low back pain Acute Lumbosacral stenosis Acute Neck pain Acute
[2016-11-25] MEDS: POLYETHYLENE GLYCOL 3350 17 GM PKT PO PRN (14:49)
--- NOTE | 2016-11-25 17:19 | ASMTCMCOM ---
CM Note CM Note Notes: Pt tx to 1N. PT is recommedning HC. Pt had [facility] after last admission. Will check with pt in AM. Date Signed: 11/25/2016 05:19 PM Electronically Signed By:Hien Montalvo LCSW
[2016-11-25] MEDS: ATORVASTATIN CALCIUM 10 MG TAB PO SCH (21:40)
[2016-11-25] MEDS: DIAZEPAM 5 MG TAB PO PRN (21:41)
[2016-11-25] MEDS: SPIRONOLACTONE 25 MG TAB PO SCH (21:42)
[2016-11-26] MEDS: LEVOTHYROXINE 150 MCG TAB PO SCH (04:16)
[2016-11-26] MEDS: oxyCODONE IR 5 MG TAB PO PRN ×4 (04:17→21:28)
[2016-11-26 04:58] LABS: CALCIUM 8.7 mg/dL (8.5-10.4); CARBON DIOXIDE 25 mEq/l (22-31); CHLORIDE 97 mEq/L (97-110); CREATININE 0.7 mg/dL (0.6-1.0); GLOMERULAR FILTRATION RATE > 60; GLUCOSE 92 mg/dL (70-100); POTASSIUM 4.3 mEq/L (3.5-5.2)
[2016-11-26] MEDS: amLODIPine BESYLATE 5 MG TAB PO SCH (07:58)
[2016-11-26] MEDS: FLUoxetine 20 MG CAP PO SCH (07:58)
[2016-11-26] MEDS: ASCORBIC ACID 500 MG TAB PO SCH ×2 (07:58→21:33)
[2016-11-26] MEDS: SODIUM CHLORIDE 1,000 MG TAB PO SCH ×2 (07:58→17:44)
[2016-11-26] MEDS: METHOCARBAMOL 750 MG TAB PO PRN (07:58)
[2016-11-26] MEDS: morphINE SR 30 MG TAB PO SCH ×2 (07:58→21:32)
[2016-11-26] MEDS: GABAPENTIN 300 MG CAP PO SCH ×2 (07:59→21:33)
--- NOTE | 2016-11-26 08:47 | NEUSURGPN ---
Assessment/Plan: 71 yr old s/p T12-L1 laminectomy, T10-S1 fusion 11/22 after progressive back and bilateral leg pain following a T10-11 TLIF with L1-S1 tied into existing hardware 2 weeks ago. Plan: -Pre op groin/abdominal pain remains improved -Patient has current PE and DVT and is off anticoagulation for surgery, ok to restart lovenox today and field services director anticoagulants Wednesday 11/29 -PT/OT -Post op x-rays stable hardware placement -Aquacel dressing in place, will need to leave in place for 7 days -Keep SCDs on continuously unless ambulating or in chair -Intra op wound cultures negative as of now -Appreciate Hospitalist management, patient with hyponateriema. -Dispo planning once cleared by medicine -Call neurosurgery with any questions/concerns -Discussed with Dr. Kaba Subjective: back pain tolerable with medications. Overall feeling well. Denies any new weakness. Objective: NAD A&Ox3 MAEx4 06/11 and equal in BUE and BLE. Incisional dressing c/d/i Catheter Insertion Date: 11/22/16 - Physician Discussed Patient with : Sesar Neurosurgery Physical Exam - Vitals, I&O, Labs I and O 11/25/16 11/26/16 11/27/16 05:59 05:59 05:59 Intake Total 2707 1500 Output Total 1895 3010 Balance 812 -1510 Weight 85 kg 85.8 kg Intake: Oral (ml) 1000 1425 IV Intake (ml) 75 IV Infused (ml) 1707 Ns 1,000 ml @ 75 mls/hr 1707 IV CONT MAURI Rx#: [id number] Output: Urine (ml) 1800 2950 Catheter 1200 Toilet 600 2950 ALCIDES Drain Output (ml) 95 60 Back Prem Casanova 95 60 Other: Output Comment Toilet mixed w urine/unableto send stool cx Number of Voids Toilet 2 Number of Stools Toilet 0 Microbiology 11/25/16 18:24 Gastrointestinal Tract Panel (PCR) - Final Stool No Organism Detected 11/22/16 15:43 Gram Stain - Final Back - Tissue Vital Signs Temp Pulse Resp BP Pulse Ox 36.6 C 84 16 108/57 L 93 11/26/16 08:20 11/26/16 08:20 11/26/16 08:20 11/26/16 08:20 11/26/16 08:20 Laboratory Results 11/25/16 05:26 11/26/16 04:30 ICD10 Worksheet Patient Problems: Problems Problem Status Onset Postoperative back pain Acute Arthrodesis status Acute Asthma exacerbation Acute Cervical radiculitis Acute Low back pain Acute Lumbosacral stenosis Acute Neck pain Acute
--- NOTE | 2016-11-26 08:55 | HOSPPROG ---
Hospitalist Progress Note Assessment/Plan: # SIADH - sodium dropped this am 132-> 123 suspect 2/2 increased PO and fluid intake- no sx patient with long standing history of hyponatremia in past - well accustomed to salt tabs and fluid restriction - initiate fluid restriction today - cont salt tabs - recheck sodium in am - wouldn't want to dc until we see at least stable # Lumbar fusion s/p revision POD # 4 - ALCIDES drain removed - dressing CDI - ambulating without difficulty feeling great thoracic xray (personally reviewed and interpreted) shows good alignment oxygen saturations 93% on RA this am - weaned off IV Dilaudid BANANA GRADER yesterday - cont TLSO brace - cont PT/OT - cont Mscontin/oxycodone and robaxin # PE/PICC line associated DVT- current post-op off anticoagulation - restart Lovenox today - restart mcc anticoagulation on 11/28 # Anemia -s/p 2 units PRBC - H&H stable -follow # Constipation - resolved # Obesity BMI 33 # proph - lovenox to restart today # diet - tolerating regular # dispo - > 2MN as requiring more post-operative recovery time to wean off IV narcotics I have discussed the case with RN- will initiate fluid restriction this am Subjective: feels excellent Objective: Vital Signs Temp Pulse Resp BP Pulse Ox 36.6 C 84 16 108/57 L 93 11/26/16 08:20 11/26/16 08:20 11/26/16 08:20 11/26/16 08:20 11/26/16 08:20 Microbiology 11/25/16 18:24 Gastrointestinal Tract Panel (PCR) - Final Stool No Organism Detected 11/22/16 15:43 Gram Stain - Final Back - Tissue Laboratory Results 11/25/16 05:26 11/26/16 04:30 11/25/16 11/26/16 11/27/16 05:59 05:59 05:59 Intake Total 2707 1500 Output Total 1895 3010 Balance 812 -1510 PT 18.0 SEC (12.0-15.0) H 11/18/16 11:17 INR 1.49 (0.83-1.16) H 11/18/16 11:17 - Physical Exam Constitutional: no apparent distress Eyes: anicteric sclera Ears, Nose, Mouth, Throat: moist mucous membranes Cardiovascular: regular rate and rhythym Respiratory: no respiratory distress Gastrointestinal: normoactive bowel sounds, soft, non-tender abdomen Genitourinary: no bladder fullness Skin: normal color Musculoskeletal: No asymmetric calves Neurologic: AAOx3 Psychiatric: interacting appropriately Lymph, Heme, Immunologic: no cervical LAD ICD10 Worksheet Patient Problems: Problems Problem Status Onset Postoperative back pain Acute Arthrodesis status Acute Asthma exacerbation Acute Cervical radiculitis Acute Low back pain Acute Lumbosacral stenosis Acute Neck pain Acute
--- NOTE | 2016-11-26 15:25 | ASMTCMCOM ---
CM Note CM Note Notes: Met with pt to discuss DC plan. Pt will not need OT/PT at DC. Pt still has her PICC line. Pt and RN areunsure what plan is to remove. C/M will follow for possible PICC line supplies if pt needs at DC. Date Signed: 11/26/2016 03:24 PM Electronically Signed By:Hien Montalvo LCSW
[2016-11-26 19:27] LABS: ANION GAP 12 mEq/L (8-16); SODIUM 134 mEq/L (134-144)
[2016-11-26] MEDS: ATORVASTATIN CALCIUM 10 MG TAB PO SCH (21:33)
[2016-11-26] MEDS: SPIRONOLACTONE 25 MG TAB PO SCH (21:33)
[2016-11-26] MEDS: ENOXAPARIN 80 MG/0.8 ML SYR SC SCH (21:40)
[2016-11-27 05:16] VITALS: BP 125/64
[2016-11-27] MEDS: oxyCODONE IR 5 MG TAB PO PRN ×2 (05:27→11:00)
[2016-11-27] MEDS: LEVOTHYROXINE 150 MCG TAB PO SCH ×2 (05:28→05:29)
--- NOTE | 2016-11-27 06:48 | NEUSURGPN ---
Assessment/Plan: 71 yr old s/p T12-L1 laminectomy, T10-S1 fusion 11/22 after progressive back and bilateral leg pain following a T10-11 TLIF with L1-S1 tied into existing hardware 2 weeks ago. No neuro changes today Plan: -Pre op groin/abdominal pain remains improved -Patient has current PE and DVT and is off anticoagulation for surgery, On Lovenox and skilled nursing anticoagulants Wednesday 11/29 -PT/OT -Post op x-rays stable hardware placement -Aquacel dressing in place, will need to leave in place for 7 days -Keep SCDs on continuously unless ambulating or in chair -Intra op wound cultures negative as of now -Appreciate Hospitalist management, patient with hyponateriema. -Dispo planning once cleared by medicine -Call neurosurgery with any questions/concerns -Discussed with Dr. Kaba Subjective: low back pain tolerable with medications Objective: NAD A&Ox3 MAEx4 06/11 and equal in BUE and BLE. Incisional dressing c/d/i Catheter Insertion Date: 11/22/16 - Physician Discussed Patient with : Sesar Neurosurgery Physical Exam - Vitals, I&O, Labs I and O 11/26/16 11/27/16 11/28/16 05:59 05:59 05:59 Intake Total 1500 1020 200 Output Total 3010 900 Balance -1510 120 200 Weight 85.8 kg Intake: Oral (ml) 1425 1020 200 IV Intake (ml) 75 Output: Urine (ml) 2950 900 Toilet 2950 900 ALCIDES Drain Output (ml) 60 Back Prem Casanova 60 Other: Output Comment Toilet mixed w urine/unableto send stool cx Number of Voids Toilet 2 Number of Stools Toilet 0 Microbiology 11/22/16 15:43 Gram Stain - Final Back - Tissue 11/25/16 18:24 Gastrointestinal Tract Panel (PCR) - Final Stool No Organism Detected Vital Signs Temp Pulse Resp BP Pulse Ox 36.8 C 71 16 125/64 H 92 11/27/16 05:12 11/27/16 05:12 11/27/16 05:12 11/27/16 05:12 11/27/16 05:12 Laboratory Results 11/25/16 05:26 ICD10 Worksheet Patient Problems: Problems Problem Status Onset Postoperative back pain Acute Arthrodesis status Acute Asthma exacerbation Acute Cervical radiculitis Acute Low back pain Acute Lumbosacral stenosis Acute Neck pain Acute
[2016-11-27 07:02] LABS: ANION GAP 10 mEq/L (8-16); CALCIUM 8.5 mg/dL (8.5-10.4); CARBON DIOXIDE 25 mEq/l (22-31); CHLORIDE 97 mEq/L (97-110); CREATININE 0.8 mg/dL (0.6-1.0); GLOMERULAR FILTRATION RATE > 60; GLUCOSE 84 mg/dL (70-100); POTASSIUM 4.5 mEq/L (3.5-5.2); SODIUM 132 mEq/L (134-144)
[2016-11-27] MEDS: METHOCARBAMOL 750 MG TAB PO PRN (07:54)
[2016-11-27] MEDS: SODIUM CHLORIDE 1,000 MG TAB PO SCH (07:54)
[2016-11-27 08:01] VITALS: PULSE 78; RESP 12; TEMP 97.8; O2SAT 93
[2016-11-27] MEDS: GABAPENTIN 300 MG CAP PO SCH (08:03)
[2016-11-27] MEDS: ASCORBIC ACID 500 MG TAB PO SCH (08:03)
[2016-11-27] MEDS: FLUoxetine 20 MG CAP PO SCH (08:03)
[2016-11-27] MEDS: morphINE SR 30 MG TAB PO SCH (08:04)
[2016-11-27] MEDS: amLODIPine BESYLATE 5 MG TAB PO SCH (08:04)
[2016-11-27] MEDS: ENOXAPARIN 80 MG/0.8 ML SYR SC SCH (08:04)
--- NOTE | 2016-11-27 10:11 | HOSPPROG ---
Hospitalist Progress Note Assessment/Plan: Begin 1011 # SIADH - sodium dropped this am 132-> 123 suspect 2/2 increased PO and fluid intake- no sx patient with long standing history of hyponatremia in past - well accustomed to salt tabs and fluid restriction - initiate fluid restriction today - cont salt tabs - recheck sodium in am - wouldn't want to dc until we see at least stable # Lumbar fusion s/p revision POD # 4 - ALCIDES drain removed - dressing CDI - ambulating without difficulty feeling great thoracic xray (personally reviewed and interpreted) shows good alignment oxygen saturations 93% on RA this am - weaned off IV Dilaudid 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 - cont TLSO brace - cont PT/OT - cont Mscontin/oxycodone and robaxin # PE/PICC line associated DVT- current post-op off anticoagulation - restart Lovenox today - restart squirrel man anticoagulation on 11/28 # Anemia -s/p 2 units PRBC - H&H stable -follow # Constipation - resolved # Obesity BMI 33 # proph - lovenox to restart today # diet - tolerating regular # dispo - > 2MN as requiring more post-operative recovery time to wean off IV narcotics Objective: Vital Signs Temp Pulse Resp BP Pulse Ox 36.6 C 78 12 125/64 H 93 11/27/16 07:55 11/27/16 07:55 11/27/16 07:55 11/27/16 08:04 11/27/16 07:55 Microbiology 11/22/16 15:43 Gram Stain - Final Back - Tissue 11/25/16 18:24 Gastrointestinal Tract Panel (PCR) - Final Stool No Organism Detected Laboratory Results 11/25/16 05:26 11/27/16 05:50 11/26/16 11/27/16 11/28/16 05:59 05:59 05:59 Intake Total 1500 1020 690 Output Total 3010 900 Balance -1510 120 690 PT 18.0 SEC (12.0-15.0) H 11/18/16 11:17 INR 1.49 (0.83-1.16) H 11/18/16 11:17 ICD10 Worksheet Patient Problems: Problems Problem Status Onset Postoperative back pain Acute Arthrodesis status Acute Asthma exacerbation Acute Cervical radiculitis Acute Low back pain Acute Lumbosacral stenosis Acute Neck pain Acute
[2016-11-27] MEDS: POLYETHYLENE GLYCOL 3350 17 GM PKT PO PRN (11:00)
--- NOTE | 2016-11-27 11:41 | ASDISCHSUM ---
Discharge Information Plan Status:Home with No Needs Medically Cleared to Leave: Discharge Date: D/C Disposition: [facility] D/C Disposition:Home, Routine, Self-Care Projected Discharge Date:11/27/2016 01:00 PM Transportation at D/C:Family Discharge Delay Reason: Follow-Up Date:11/27/2016 01:00 PM Discharge Slot: Final Diagnosis:T12-L1 Laminectomy, T10-S1 fusion for back, leg pain Placement Information Patient Contact Information Contact Name:NO Relationship: Address:[address] [place] City:[place] Alternate Phone: [facility]/Zip Code:[place] [address] Email: Financial Information Financial Class: Primary Plan Desc:MEDICARE INPATIENT Primary Plan Number:[id number] Secondary Plan Desc:[employer]/MDR SUPPLEMENT Secondary Plan Number:[id number] Assessment Information [facility] CM Progress Note CM Note CM Note Notes: Pt re-admission for back pain, d/c 11/15/16 w [facility]. Pt reports when she got home C was not needed to [facility] did not start services. Pt will have T10 to [id number] w lami at Y12/L1 Tuesday. OT/PT will eval for d/c needs. Pt agreeable to [facility] if she needs it. CM to follow. Date Signed: 11/19/2016 11:07 AM Electronically Signed By:SERJIO Paz [facility] CM Progress Note CM Note CM Note Notes: Chart reviewed. Surgery tomorrow. Needs TBD. CM will follow. Date Signed: 11/21/2016 01:58 PM Electronically Signed By:Dodie Oliva RN [facility] CM Progress Note CM Note CM Note Notes: Patient in ICU after spinal fusion revision T12-L1 lami, T10-S1 fusion. Also concern for DVT and PE. Patient to get fitted for a brace before up and moving. [facility] had been set up for her originally. Date Signed: 11/23/2016 04:07 PM Electronically Signed By:Isi Navarrete LCSW [facility] CM Progress Note CM Note CM Note Notes: Pt tx to 1N. PT is recommedning . Pt had [facility] after last admission. Will check with pt in AM. Date Signed: 11/25/2016 05:19 PM Electronically Signed By:Hien Montalvo LCSW [facility] CM Progress Note CM Note CM Note Notes: Met with pt to discuss DC plan. Pt will not need OT/PT at DC. Pt still has her PICC line. Pt and RN areunsure what plan is to remove. C/M will follow for possible PICC line supplies if pt needs at DC. Date Signed: 11/26/2016 03:24 PM Electronically Signed By:Hien Montalvo LCSW [facility] CM Progress Note CM Note CM Note Notes: Patient discharging home folllowing Lamilnectomy AND fusion follwoing progressive and and bilateral leg pain. Patient with no additional Case managemt needs apparent at this time. Date Signed: 11/27/2016 11:41 AM Electronically Signed By:SERJIO Simms Intervention Information Intervention Type:*Incorrect Registration Date of Service:11/19/2016 11:53 AM Patient Type:Observation Staff Member:MACHELLE Hanley Susan Hours: Discipline: Severity: Comment:
--- NOTE | 2016-11-30 12:26 | GDS ---
[f rep st] DISCHARGE SUMMARY DISCHARGE DIAGNOSES: 1. Status post lumbar fusion, status post revision. 2. PICC line associated deep vein thrombosis. 3. Syndrome of inappropriate antidiuretic hormone secretion. HISTORY OF PRESENT ILLNESS: The patient is a pleasant 71-year-old female who was admitted to [facility] on 11/18/2016, in anticipation of thoracic and lumbar spine laminectomy and place ment of new hardware. She had been recently diagnosed with an upper extremity DVT on 11/10/2016, and had come in on anticoagulation. This was stopped in anticipation of the surgical procedure. Postoperatively, she did quite well. Physical Therapy felt that she was ambulating appropriately to r eturn home. The patient is a retired nurse. She felt comfortable with doing her own Lovenox injection . This was subsequently started after her surgery. She was also advised to resume Coumadin as well an d to obtain an INR in 3-5 days after resuming Coumadin therapy. I did also provide her with pain medi cations to cover her until she could have her followup visits with Neurosurgery. HOSPITAL COURSE BY PROBLEM: 1. Lumbar fusion status post revision. Patient was ambulating well. Physical Therapy worked with her , felt she was doing quite well and stable for discharge home. 2. Hyponatremia. She had mild hyponatremia during the hospitalization. She did not seem symptomatic from this. Fluid restriction was started. Sodium level remained stable. 3. PICC line associated DVT. She was discharged to resume Lovenox at therapeutic doses and to also r esume Coumadin with the advice to have an INR done in 3-5 days for reassessment. She was resumed on h er previous Coumadin dosing. PHYSICAL EXAMINATION: VITAL SIGNS: On the day of discharge: Temperature 36.6, blood pressure is 125/ 64, heart rate 78, respirations 12, satting 93% on room air. GENERAL: Patient resting comfortably, si tting in a chair at the bedside. No acute distress. HEART: Regular. No murmurs. LUNGS: Clear on auscu ltation. ABDOMEN: Nondistended. : No Cornejo catheter in place. EXTREMITIES: No significant pitting e lisa. DISCHARGE MEDICATIONS: 1. Oxycodone 5 mg 1-2 tabs every 4 hours as needed for pain. 2. Albuterol inhaler 2 puffs every 4 hours as needed. 3. Amlodipine 5 mg daily. 4. Astepro nasal spray. 5. Lovenox 80 mg q.12 hours. 6. Prozac 20 mg daily. 7. Neurontin 600 mg twice a day. 8. Levothyroxine 225 mcg daily. 9. Robaxin 750 mg every 6 hours as needed for muscle spasm. 10. Morphine SR 30 mg twice a day. 11. Omeprazole 20 mg daily. 12. MiraLax 17 g daily. 13. Colace, Senokot 1 tab twice a day. 14. Simvastatin 20 mg nightly. 15. Spironolactone 50 mg nightly. 16. Coumadin 3 mg daily. 17. Zolpidem 2.5 mg nightly as needed. DISCHARGE INSTRUCTIONS: Patient will have followup visit with Dr. Kaba that has been scheduled. I also recommended INR check in the coming 3-5 days for reassessment. Also, follow up with her primary provider as scheduled. /[id number]/MODL
== END 2016-11-27 12:25 | disposition home or self-care (01) | DRG 460 ==
LOC: OBSVTOIN 13:22 → F3N 14:06 → F2N 11-22 20:18 → F1N 11-24 20:26
PROVIDERS: ADMIT Neurological Surgery; ATTEND Neurological Surgery
DX: M48.04 Spinal stenosis, thoracic region (principal); M48.05 Spinal stenosis, thoracolumbar region; Z98.1 Arthrodesis status; E22.2 Syndrome of inappropriate secretion of antidiuretic hormone; D64.9 Anemia, unspecified; K59.00 Constipation, unspecified; E03.9 Hypothyroidism, unspecified; E66.9 Obesity, unspecified; Z68.33 Body mass index [BMI] 33.0-33.9, adult; J45.909 Unspecified asthma, uncomplicated; Z86.718 Personal history of other venous thrombosis and embolism; Z86.711 Personal history of pulmonary embolism; Z79.01 Long term (current) use of anticoagulants
CPT/HCPCS: 96374; 97116-GP; 97161-GP; 97166-GO; 97530-GO; 97530-GP; 97535-GO; C1713; C1751; G8978-GP-CI; G8979-GP-CH; G8987-GO-CK; G8988-GO-CI; G8989-GO-CI; J0171; J0690; J1100; J1170; J1650; J2001; J2250; J2370; J2405; J2704; J3010; P9016; Q9967

== ENCOUNTER → 2017-01-10 | Outpatient (CLI) | payer OTHER, MEDICARE | LOC: CIMAGING 14:54 | PROVIDERS: ATTEND Physician Assistant | DX: Z09 Encounter for follow-up examination after completed treatment for conditions other than malignant neoplasm (principal); Z98.1 Arthrodesis status | CPT/HCPCS: 72070-PO ==

== ENCOUNTER → 2017-02-08 | Outpatient (CLI) | payer OTHER, MEDICARE | LOC: CIMAGING 13:15 | PROVIDERS: ATTEND Physician Assistant | DX: Z98.1 Arthrodesis status (principal) | CPT/HCPCS: 72080-PO ==

== ENCOUNTER → 2017-03-25 | Outpatient (CLI) | payer OTHER, MEDICARE | LOC: FIMAGING 12:56 | PROVIDERS: ATTEND Internal Medicine | DX: Z13.820 Encounter for screening for osteoporosis (principal); M85.89 Other specified disorders of bone density and structure, multiple sites ==

== ENCOUNTER → 2018-02-14 | Outpatient (CLI) | payer OTHER, MEDICARE | LOC: FIMAGING 12:27 | PROVIDERS: ATTEND Physician Assistant | DX: M54.5 Low back pain (principal); Z98.1 Arthrodesis status ==

== ENCOUNTER → 2018-03-27 | Outpatient (CLI) | payer OTHER, MEDICARE | LOC: FIMAGING 13:02 | PROVIDERS: ATTEND Internal Medicine | DX: Z12.31 Encounter for screening mammogram for malignant neoplasm of breast (principal) ==